=== PATIENT | female | born 1955 | race Caucasian/White ===

== ENCOUNTER 2020-06-25 11:58 | Outpatient (REF) | payer MEDICARE, MEDICAID, SELFPAY | END 2020-06-25 11:59 | disposition home or self-care (01) | LOC: HO.HMGCLDS 11:58 | PROVIDERS: PCP Family Medicine; Visit Provider Family Medicine | DX: Z20.828 Contact with and (suspected) exposure to other viral communicable diseases (principal) | CPT/HCPCS: C9803; U0003 ==

== ENCOUNTER 2020-10-12 11:32 | Outpatient (REF) | payer MEDICARE, MEDICAID, SELFPAY ==
[2020-10-12 12:49] LABS: Basophils Absolute Auto 0.1 X10*3/uL (0.0-0.2); Basophils Percent Auto 0.6 % (0-2); Eosinophils Absolute Auto 0.2 X10*3/uL (0.0-0.4); Eosinophils Percent Auto 1.2 % (0-4); Hematocrit 37.5 % (37-47); Imm Gran Abs Auto 0.05 X10*3/uL (0.00-0.03); Imm Gran Pct Auto 0.4 % (0.0-0.4); Lymphocytes Absolute Auto 2.7 X10*3/uL (1.2-4.9); Lymphocytes Percent Auto 21.7 % (20-40); MANUAL DIFF FLAG SCAN; Mean Corpuscular Hemoglobin 29.7 pg (27.0-33.0); Mean Corpuscular Volume 92.8 fL (80-98); Monocytes Absolute Auto 1.5 X10*3/uL (0.1-1.2); Monocytes Percent Auto 12.1 % (2-11); Neutrophils Absolute Auto 8.1 X10*3/uL (2.0-8.3); Platelet Count 241 X10*3/uL (160-400); Red Blood Count 4.04 X10*6/uL (4.20-5.50); Red Cell Distribution Width 12.2 % (11.0-16.0); SCAN SMEAR FLAG 1; White Blood Count 12.6 X10*3/uL (4.8-10.8)
[2020-10-12 13:24] LABS: Anion Gap 15 (12-20); Blood Urea Nitrogen 18 mg/dL (9-16); Carbon Dioxide 24 mmol/L (22-29); Chloride 100 mmol/L (96-108); Estimated Glomerular Filt Rate > 60; Potassium 4.1 mmol/L (3.3-5.1); Sodium 135 mmol/L (135-145)
[2020-10-12 13:37] LABS: Thyroid Stimulating Hormone 1.04 uIU/mL (0.32-4.0)
[2020-10-12 14:12] LABS: Free T4 (Free Thyroxine) 0.92 ng/dL (0.71-1.85)
[2020-10-12 14:56] LABS: SLIDE REVIEW VERIFIED
== END 2020-10-12 11:33 | disposition home or self-care (01) ==
LOC: HO.LAB 11:32
PROVIDERS: PCP Family Medicine; Visit Provider Family Medicine
DX: E03.9 Hypothyroidism, unspecified (principal); D50.9 Iron deficiency anemia, unspecified
CPT/HCPCS: 36415; 80051; 82565; 84439; 84443; 84520; 85025

== ENCOUNTER 2020-10-29 08:55 | Outpatient (REF) | payer MEDICARE, MEDICAID, SELFPAY ==
--- NOTE | ~2020-10-29 | MM_ITS ---
EXAMINATION: MM SCREENING DIGITAL BREAST TOMOSYNTHESIS, BILATERAL CLINICAL INFORMATION: Screening. Asymptomatic. The lifetime risk of breast cancer based on the Tyrer-Cuzick Model is 5%. COMPARISON: Mammography: 10/02/2019, 08/13/2018 TECHNIQUE: Digital breast tomosynthesis is performed in both the craniocaudal and mediolateral oblique views along with computer-aided detection (CAD). Synthesized 2D images are generated from the tomosynthesis. FINDINGS: The breasts are heterogeneously dense, which may obscure small masses (ACR BI-RADS breast composition Category c). There are no significant masses, abnormal calcifications, or other abnormalities. Breast tissue composition borders on extremely dense. There are scattered bilateral benign round and ductal secretory calcifications again noted. The axilla and skin contours are unremarkable. MM/MM tomosynthesis screening BI IMPRESSION: No mammographic evidence of malignancy. ASSESSMENT: BI-RADS 2: Benign RECOMMENDATION: Routine annual mammography screening. This patient's information was entered into a reminder system with a target due date for their next mammogram.
== END 2020-10-29 08:56 | disposition home or self-care (01) ==
LOC: HO.MAMMO 08:55
PROVIDERS: PCP Family Medicine; Visit Provider Family Medicine
DX: Z12.31 Encounter for screening mammogram for malignant neoplasm of breast (principal)
CPT/HCPCS: 77063; 77067

== ENCOUNTER 2021-03-31 11:54 | Outpatient (REF) | payer MEDICARE, MEDICAID, SELFPAY ==
[2021-03-31 12:29] LABS: MANUAL DIFF FLAG NO
[2021-03-31 12:31] LABS: Basophils Absolute Auto 0.1 X10*3/uL (0.0-0.2); Basophils Percent Auto 0.9 % (0-2); Eosinophils Absolute Auto 0.1 X10*3/uL (0.0-0.4); Eosinophils Percent Auto 1.4 % (0-4); Hemoglobin 11.8 g/dl (12.0-16.0); Imm Gran Abs Auto 0.05 X10*3/uL (0.00-0.03); Imm Gran Pct Auto 0.5 % (0.0-0.4); Lymphocytes Absolute Auto 2.7 X10*3/uL (1.2-4.9); Lymphocytes Percent Auto 28.6 % (20-40); Mean Corpuscular HGB Conc 32.8 g/dl (31.0-35.0); Mean Corpuscular Hemoglobin 29.8 pg (27.0-33.0); Mean Corpuscular Volume 90.9 fL (80-98); Monocytes Percent Auto 11.1 % (2-11); Neutrophils Absolute Auto 5.4 X10*3/uL (2.0-8.3); Neutrophils Percent Auto 57.5 % (45-73); Platelet Count 213 X10*3/uL (160-400); Red Blood Count 3.96 X10*6/uL (4.20-5.50); Red Cell Distribution Width 12.3 % (11.0-16.0); White Blood Count 9.4 X10*3/uL (4.8-10.8)
[2021-03-31 13:15] LABS: Anion Gap 15 (12-20); Blood Urea Nitrogen 14 mg/dL (9-16); Carbon Dioxide 23 mmol/L (22-29); Chloride 101 mmol/L (96-108); Estimated Glomerular Filt Rate 58; Potassium 4.5 mmol/L (3.3-5.1); Sodium 134 mmol/L (135-145)
[2021-03-31 13:38] LABS: Free T4 (Free Thyroxine) 1.02 ng/dL (0.71-1.85)
== END 2021-03-31 11:55 | disposition home or self-care (01) ==
LOC: HO.LAB 11:54
PROVIDERS: PCP Family Medicine; Visit Provider Family Medicine
DX: E03.9 Hypothyroidism, unspecified (principal); R00.0 Tachycardia, unspecified; D50.9 Iron deficiency anemia, unspecified
CPT/HCPCS: 36415; 80051; 82565; 84439; 84520; 85025

== ENCOUNTER 2021-10-21 15:03 | Outpatient (REF) | payer MEDICARE, MEDICAID, SELFPAY ==
[2021-10-21 15:53] LABS: Anion Gap 12 (12-20); Blood Urea Nitrogen 17 mg/dL (9-16); Carbon Dioxide 24 mmol/L (22-29); Chloride 100 mmol/L (96-108); Estimated Glomerular Filt Rate > 60; Iron 77 mcg/dL (30-160); Percent Iron Saturation 24 % (15-50); Potassium 3.9 mmol/L (3.3-5.1); Sodium 132 mmol/L (135-145); Total Iron Binding Capacity 326 mcg/dL (228-428); Unsaturated Iron Binding 249 ug/dL
[2021-10-21 16:13] LABS: Free T4 (Free Thyroxine) 1.11 ng/dL (0.71-1.85); TSH reflex Free T4 0.45 uIU/mL (0.32-4.0)
== END 2021-10-21 15:04 | disposition home or self-care (01) ==
LOC: HO.LAB 15:03
PROVIDERS: PCP Family Medicine; Visit Provider Family Medicine
DX: E03.9 Hypothyroidism, unspecified (principal); D50.9 Iron deficiency anemia, unspecified; E87.1 Hypo-osmolality and hyponatremia
CPT/HCPCS: 36415; 80051; 82565; 83540; 84439; 84443; 84520

== ENCOUNTER 2021-10-31 10:14 | Outpatient (REF) | payer MEDICARE, MEDICAID, SELFPAY ==
--- NOTE | ~2021-10-31 | MM_ITS ---
EXAMINATION: MM SCREENING DIGITAL BREAST TOMOSYNTHESIS, BILATERAL CLINICAL INFORMATION: Screening. Asymptomatic. The lifetime risk of breast cancer based on the Tyrer-Cuzick Model is 6%. COMPARISON: Mammography: 10/29/2020, 10/02/2019, 08/13/2018 TECHNIQUE: Digital breast tomosynthesis is performed in both the craniocaudal and mediolateral oblique views along with computer-aided detection (CAD). Synthesized 2D images are generated from the tomosynthesis. FINDINGS: The breasts are heterogeneously dense, which may obscure small masses (ACR BI-RADS breast composition Category c). There are no significant masses, abnormal calcifications, or other abnormalities. Breast tissue composition borders on extremely dense. Parenchymal pattern is similar to prior studies. There are scattered bilateral ductal secretory calcifications. The axilla are unremarkable. No significant changes. MM/MM tomosynthesis screening BI IMPRESSION: No mammographic evidence of malignancy. ASSESSMENT: BI-RADS 2: Benign RECOMMENDATION: Routine annual mammography screening. This patient's information was entered into a reminder system with a target due date for their next mammogram.
== END 2021-10-31 10:15 | disposition home or self-care (01) ==
LOC: HO.MAMMO 10:14
PROVIDERS: PCP Family Medicine; Visit Provider Family Medicine
DX: Z12.31 Encounter for screening mammogram for malignant neoplasm of breast (principal)
CPT/HCPCS: 77063; 77067

== ENCOUNTER 2022-06-13 11:10 | Outpatient (REF) | payer MEDICARE, MEDICAID, SELFPAY ==
[2022-06-13 11:21] LABS: MANUAL DIFF FLAG NO
[2022-06-13 12:08] LABS: Basophils Absolute Auto 0.1 X10*3/uL (0.0-0.2); Basophils Percent Auto 0.9 % (0-2); Eosinophils Absolute Auto 0.3 X10*3/uL (0.0-0.4); Eosinophils Percent Auto 2.1 % (0-4); Hematocrit 39.5 % (37.0-47.0); Hemoglobin 13.2 g/dl (12.0-16.0); Imm Gran Abs Auto 0.07 X10*3/uL (0.00-0.03); Imm Gran Pct Auto 0.6 % (0.0-0.4); Lymphocytes Absolute Auto 2.4 X10*3/uL (1.2-4.9); Lymphocytes Percent Auto 18.7 % (20-40); Mean Corpuscular HGB Conc 33.4 g/dl (31.0-35.0); Mean Corpuscular Hemoglobin 29.3 pg (27.0-33.0); Mean Corpuscular Volume 87.8 fL (80.0-98.0); Mean Platelet Volume 10.3 fL (9.4-12.3); Monocytes Percent Auto 7.5 % (2-11); Neutrophils Absolute Auto 8.9 x10*3/uL (2.0-8.3); Neutrophils Percent Auto 70.2 % (45-73); Platelet Count 232 X10*3/uL (160-400); Red Cell Distribution Width 12.3 % (11.0-16.0); White Blood Count 12.7 X10*3/uL (4.8-10.8)
[2022-06-13 13:31] LABS: Alanine Aminotransferase 20 U/L (0-31); Albumin Level 3.9 g/dL (3.5-5.0); Alkaline Phosphatase 97 U/L (39-117); Anion Gap 16 (12-20); Aspartate Amino Transferase 29 U/L (5-31); Bilirubin Total 0.4 mg/dL (0.0-1.0); Blood Urea Nitrogen 20 mg/dL (9-16); Calcium 9.2 mg/dL (8.4-10.2); Carbon Dioxide 26 mmol/L (22-29); Chloride 96 mmol/L (96-108); Estimated Glomerular Filt Rate > 60; Free T4 (Free Thyroxine) 1.12 ng/dL (0.71-1.85); Glucose Random 91 mg/dL (60-115); Potassium 4.5 mmol/L (3.3-5.1); Sodium 133 mmol/L (135-145); Total Protein 6.4 g/dL (6.5-8.0)
== END 2022-06-13 11:11 | disposition home or self-care (01) ==
LOC: HO.LAB 11:10
PROVIDERS: PCP Family Medicine; Visit Provider Family Medicine
DX: E03.9 Hypothyroidism, unspecified (principal); D50.9 Iron deficiency anemia, unspecified; R53.83 Other fatigue
CPT/HCPCS: 36415; 80053; 84439; 85025

== ENCOUNTER 2022-11-02 09:45 | Outpatient (REF) | payer MEDICARE, MEDICAID, SELFPAY ==
--- NOTE | ~2022-11-02 | MM_ITS ---
EXAMINATION: MM SCREENING DIGITAL BREAST TOMOSYNTHESIS, BILATERAL CLINICAL INFORMATION: Screening. Asymptomatic. Family history breast cancer, sister. The lifetime risk of breast cancer based on the Tyrer-Cuzick Model is 7%. COMPARISON: Mammography: 10/31/2021, 10/29/2020, 10/02/2019, 08/13/2018 TECHNIQUE: Digital breast tomosynthesis is performed in both the craniocaudal and mediolateral oblique views along with computer-aided detection (CAD). Synthesized 2D images are generated from the tomosynthesis. FINDINGS: The breasts are heterogeneously dense, which may obscure small masses (ACR BI-RADS breast composition Category c). Parenchymal pattern is similar to prior exams and there is no developing density or architectural abnormality. There are no significant masses, abnormal calcifications, or other abnormalities. Again, there are scattered bilateral ductal secretory calcifications. The axilla and skin contours are unremarkable. No significant changes. MM/MM tomosynthesis screening BI IMPRESSION: No mammographic evidence of malignancy. ASSESSMENT: BI-RADS 1: Negative RECOMMENDATION: Routine annual mammography screening. This patient's information was entered into a reminder system with a target due date for their next mammogram.
== END 2022-11-02 09:46 | disposition home or self-care (01) ==
LOC: HO.MAMMO 09:45
PROVIDERS: PCP Family Medicine; Visit Provider Family Medicine
DX: Z12.31 Encounter for screening mammogram for malignant neoplasm of breast (principal)
CPT/HCPCS: 77063; 77067

== ENCOUNTER 2022-11-08 10:03 | Outpatient (REF) | payer MEDICARE, MEDICAID, SELFPAY ==
[2022-11-08 10:17] LABS: MANUAL DIFF FLAG NO
[2022-11-08 10:31] LABS: Basophils Absolute Auto 0.1 X10*3/uL (0.0-0.2); Basophils Percent Auto 0.9 % (0-2); Eosinophils Absolute Auto 0.2 X10*3/uL (0.0-0.4); Eosinophils Percent Auto 2.1 % (0-4); Hematocrit 40.7 % (37.0-47.0); Hemoglobin 13.1 g/dl (12.0-16.0); Imm Gran Abs Auto 0.04 X10*3/uL (0.00-0.03); Imm Gran Pct Auto 0.4 % (0.0-0.4); Lymphocytes Absolute Auto 2.2 X10*3/uL (1.2-4.9); Lymphocytes Percent Auto 20.2 % (20-40); Mean Corpuscular HGB Conc 32.2 g/dl (31.0-35.0); Mean Corpuscular Hemoglobin 29.2 pg (27.0-33.0); Mean Corpuscular Volume 90.6 fL (80.0-98.0); Monocytes Absolute Auto 0.8 X10*3/uL (0.1-1.2); Neutrophils Absolute Auto 7.4 x10*3/uL (2.0-8.3); Neutrophils Percent Auto 69.4 % (45-73); Platelet Count 221 X10*3/uL (160-400); Red Blood Count 4.49 X10*6/uL (4.20-5.50); Red Cell Distribution Width 12.3 % (11.0-16.0); White Blood Count 10.7 X10*3/uL (4.8-10.8)
[2022-11-08 11:13] LABS: Alanine Aminotransferase 22 U/L (0-31); Albumin Level 3.8 g/dL (3.5-5.0); Alkaline Phosphatase 101 U/L (39-117); Anion Gap 11 (12-20); Aspartate Amino Transferase 23 U/L (5-31); Bilirubin Total 0.4 mg/dL (0.0-1.0); Blood Urea Nitrogen 25 mg/dL (9-16); Calcium 8.8 mg/dL (8.4-10.2); Carbon Dioxide 27 mmol/L (22-29); Chloride 101 mmol/L (96-108); Estimated Glomerular Filt Rate 48; Glucose Random 112 mg/dL (60-115); Potassium 4.6 mmol/L (3.3-5.1); Sodium 134 mmol/L (135-145)
[2022-11-08 11:34] LABS: Free T4 (Free Thyroxine) 1.09 ng/dL (0.71-1.85)
== END 2022-11-08 10:04 | disposition home or self-care (01) ==
LOC: HO.LAB 10:03
PROVIDERS: PCP Family Medicine; Visit Provider Family Medicine
DX: E03.9 Hypothyroidism, unspecified (principal); R53.1 Weakness; R27.0 Ataxia, unspecified
CPT/HCPCS: 36415; 80053; 84439; 85025

== ENCOUNTER 2023-05-22 12:06 | Outpatient (REF) | payer MEDICARE, MEDICAID, SELFPAY ==
[2023-05-22 14:03] LABS: MANUAL DIFF FLAG NO
[2023-05-22 14:10] LABS: Basophils Absolute Auto 0.1 X10*3/uL (0.0-0.2); Basophils Percent Auto 0.9 % (0-2); Eosinophils Absolute Auto 0.3 X10*3/uL (0.0-0.4); Eosinophils Percent Auto 2.5 % (0-4); Hematocrit 37.4 % (37.0-47.0); Hemoglobin 12.1 g/dl (12.0-16.0); Imm Gran Abs Auto 0.04 X10*3/uL (0.00-0.03); Imm Gran Pct Auto 0.4 % (0.0-0.4); Lymphocytes Absolute Auto 2.3 X10*3/uL (1.2-4.9); Lymphocytes Percent Auto 22.8 % (20-40); Mean Corpuscular HGB Conc 32.4 g/dl (31.0-35.0); Mean Corpuscular Hemoglobin 29.1 pg (27.0-33.0); Mean Corpuscular Volume 89.9 fL (80.0-98.0); Mean Platelet Volume 10.5 fL (9.4-12.3); Monocytes Absolute Auto 1.1 X10*3/uL (0.1-1.2); Monocytes Percent Auto 10.4 % (2-11); Neutrophils Absolute Auto 6.4 x10*3/uL (2.0-8.3); Platelet Count 239 X10*3/uL (160-400); Red Blood Count 4.16 X10*6/uL (4.20-5.50); Red Cell Distribution Width 12.5 % (11.0-16.0); White Blood Count 10.1 X10*3/uL (4.8-10.8)
[2023-05-22 14:25] LABS: Alanine Aminotransferase 20 U/L (0-31); Albumin Level 3.7 g/dL (3.5-5.0); Alkaline Phosphatase 93 U/L (39-117); Anion Gap 12 (12-20); Aspartate Amino Transferase 21 U/L (5-31); Bilirubin Total 0.3 mg/dL (0.0-1.0); Blood Urea Nitrogen 14 mg/dL (9-16); Calcium 9.3 mg/dL (8.4-10.2); Carbon Dioxide 26 mmol/L (22-29); Chloride 102 mmol/L (96-108); Estimated Glomerular Filt Rate > 60; Glucose Random 71 mg/dL (60-115); Iron 84 mcg/dL (30-160); Percent Iron Saturation 29 % (15-50); Potassium 4.4 mmol/L (3.3-5.1); Sodium 136 mmol/L (135-145); Total Iron Binding Capacity 285 mcg/dL (228-428); Total Protein 6.3 g/dL (6.5-8.0); Unsaturated Iron Binding 201 ug/dL
== END 2023-05-22 12:07 | disposition home or self-care (01) ==
LOC: HO.10HDL 12:06
PROVIDERS: Visit Provider Family Medicine
DX: D64.9 Anemia, unspecified (principal); E03.9 Hypothyroidism, unspecified; R27.0 Ataxia, unspecified
CPT/HCPCS: 36415; 80053; 83540; 84439; 85025

== ENCOUNTER 2023-09-05 10:32 | Outpatient (REF) | payer MEDICARE, MEDICAID, SELFPAY ==
[2023-09-06 08:38] LABS: Appearance Urine Cloudy; Color Urine Yellow; Glucose Urine UA Negative (Negative); Leukocyte Esterase Urine Moderate (2+) (Negative); Nitrite Urine Negative (Negative); PH 6.5 (5.0-9.0); Specific Gravity - Urine <= 1.005 (1.005-1.025); UMIC TRIGGER UA YES; Urine Blood Negative (Negative); Urine Ketones Negative (Negative); Urine Protein Negative (Neg-Trace)
[2023-09-06 09:00] LABS: Bacteria Urine 4+ (None Seen); Hyaline Casts Urine 0-2 /LPF (0-2); Squamous Epithelial Cell Urine 0-2 /HPF (0-2); WBC Urine 21-50 /HPF (0-5)
[2023-09-06 09:01] LABS: RBC Urine 0-2 /HPF (0-2)
== END 2023-09-05 10:33 | disposition home or self-care (01) ==
LOC: HO.LAB 10:32
PROVIDERS: PCP Family Medicine; Visit Provider Family Medicine
DX: R41.0 Disorientation, unspecified (principal); N39.0 Urinary tract infection, site not specified
CPT/HCPCS: 81001; 87086; 87088; 87186

== ENCOUNTER 2023-09-12 14:43 | Outpatient (REF) | payer MEDICARE, MEDICAID, SELFPAY ==
[2023-09-12 16:56] LABS: Appearance Urine Cloudy; Color Urine Yellow; Glucose Urine UA Negative (Negative); Leukocyte Esterase Urine Moderate (2+) (Negative); Nitrite Urine Positive (Negative); Specific Gravity - Urine 1.015 (1.005-1.025); UMIC TRIGGER UACC YES; Urine Blood Negative (Negative); Urine Ketones Trace mg/dL (Negative); Urine Protein Negative (Neg-Trace)
[2023-09-12 18:00] LABS: Bacteria Urine 4+ (None Seen); Calcium Oxalate Crystals Urine Present; Hyaline Casts Urine 0-2 /LPF (0-2); RBC Urine 0-2 /HPF (0-2); UACC Culture Trigger YES; WBC Urine 21-50 /HPF (0-5)
== END 2023-09-12 14:44 | disposition home or self-care (01) ==
LOC: HO.LAB 14:43
PROVIDERS: PCP Family Medicine; Visit Provider Family Medicine
DX: N39.0 Urinary tract infection, site not specified (principal)
CPT/HCPCS: 81001; 87086; 87088; 87186

== ENCOUNTER 2023-09-19 09:52 | Outpatient (REF) | payer MEDICARE, MEDICAID, SELFPAY ==
[2023-09-19 10:53] LABS: MANUAL DIFF FLAG NO
[2023-09-19 11:01] LABS: Basophils Absolute Auto 0.1 X10*3/uL (0.0-0.2); Basophils Percent Auto 0.8 % (0-2); Eosinophils Absolute Auto 0.4 X10*3/uL (0.0-0.4); Eosinophils Percent Auto 3.9 % (0-4); Hematocrit 37.9 % (37.0-47.0); Hemoglobin 12.6 g/dl (12.0-16.0); Imm Gran Abs Auto 0.04 X10*3/uL (0.00-0.03); Imm Gran Pct Auto 0.4 % (0.0-0.4); Lymphocytes Absolute Auto 1.8 X10*3/uL (1.2-4.9); Lymphocytes Percent Auto 18.1 % (20-40); Mean Corpuscular HGB Conc 33.2 g/dl (31.0-35.0); Mean Corpuscular Hemoglobin 28.6 pg (27.0-33.0); Mean Corpuscular Volume 85.9 fL (80.0-98.0); Mean Platelet Volume 9.6 fL (9.4-12.3); Monocytes Absolute Auto 0.8 X10*3/uL (0.1-1.2); Monocytes Percent Auto 8.4 % (2-11); Neutrophils Absolute Auto 6.8 x10*3/uL (2.0-8.3); Neutrophils Percent Auto 68.4 % (45-73); Platelet Count 279 X10*3/uL (160-400); Red Blood Count 4.41 X10*6/uL (4.20-5.50); Red Cell Distribution Width 12.7 % (11.0-16.0)
[2023-09-19 11:30] LABS: Alanine Aminotransferase 16 U/L (0-31); Alkaline Phosphatase 97 U/L (39-117); Anion Gap 11 (12-20); Aspartate Amino Transferase 18 U/L (5-31); Bilirubin Direct 0.1 mg/dL (0.0-0.5); Bilirubin Total 0.4 mg/dL (0.0-1.0); Carbon Dioxide 26 mmol/L (22-29); Chloride 101 mmol/L (96-108); Iron 95 mcg/dL (30-160); Percent Iron Saturation 36 % (15-50); Potassium 4.4 mmol/L (3.3-5.1); Sodium 134 mmol/L (135-145); Total Iron Binding Capacity 267 mcg/dL (228-428); Total Protein 6.6 g/dL (6.5-8.0); Unsaturated Iron Binding 172 ug/dL
[2023-09-19 11:39] LABS: Erythrocyte Sedimentation Rate 12 MM/HR (0-20); Ferritin 186 ng/mL (10-250); Free T4 (Free Thyroxine) 1.19 ng/dL (0.71-1.85); Thyroid Stimulating Hormone 1.06 uIU/mL (0.32-4.0)
[2023-09-19 15:11] LABS: Folate 18.3 ng/mL (> or = 4.0); Vitamin B12 299 pg/mL (200-900)
== END 2023-09-19 09:53 | disposition home or self-care (01) ==
LOC: HO.10HDL 09:52
PROVIDERS: Visit Provider Family Medicine
DX: D64.9 Anemia, unspecified (principal); R53.1 Weakness; R27.0 Ataxia, unspecified
CPT/HCPCS: 36415; 80051; 80076; 82607; 82728; 82746; 83540; 84439; 84443; 85025; 85652

== ENCOUNTER 2023-10-15 13:51 | Outpatient (REF) | payer MEDICARE, MEDICAID, SELFPAY ==
[2023-10-15 14:40] LABS: Appearance Urine Clear; Color Urine Yellow; Glucose Urine UA Negative (Negative); Leukocyte Esterase Urine Negative (Negative); Nitrite Urine Negative (Negative); Specific Gravity - Urine <= 1.005 (1.005-1.025); Urine Blood Negative (Negative); Urine Ketones Negative (Negative); Urine Protein Negative (Neg-Trace)
== END 2023-10-15 13:52 | disposition home or self-care (01) ==
LOC: HO.LAB 13:51
PROVIDERS: PCP Family Medicine; Visit Provider Family Medicine
DX: N39.0 Urinary tract infection, site not specified (principal)
CPT/HCPCS: 81003; 87086; 87088; 87186

== ENCOUNTER 2023-11-08 09:25 | Outpatient (REF) | payer MEDICARE, MEDICAID, SELFPAY ==
--- NOTE | ~2023-11-08 | MM_ITS ---
EXAMINATION: MM SCREENING DIGITAL BREAST TOMOSYNTHESIS, BILATERAL CLINICAL INFORMATION: Screening. Asymptomatic. COMPARISON: Mammography: This study is compared with prior exams dating back to 2019. TECHNIQUE: Digital breast tomosynthesis is performed in both the craniocaudal and mediolateral oblique views along with computer-aided detection (CAD). Synthesized 2D images are generated from the tomosynthesis. FINDINGS: There are scattered areas of fibroglandular density (ACR BI-RADS breast composition Category b). There are no significant masses, abnormal calcifications, or other abnormalities. Few, bilateral benign calcifications are present. MM/MM tomosynthesis screening BI IMPRESSION: No mammographic evidence of malignancy. ASSESSMENT: BI-RADS BI-RADS 2 - Benign Findings RECOMMENDATION: Routine annual mammography screening. 1 year F/U This examination should not preclude the clinical evaluation of a suspicious palpable abnormality. This patient's information was entered into a reminder system with a target due date for their next mammogram.
== END 2023-11-08 09:26 | disposition home or self-care (01) ==
LOC: HO.MAMMO 09:25
PROVIDERS: PCP Family Medicine; Visit Provider Family Medicine
DX: Z12.31 Encounter for screening mammogram for malignant neoplasm of breast (principal)
CPT/HCPCS: 77063; 77067

== ENCOUNTER → 2023-11-08 09:30 | Outpatient (BNV) | payer MEDICARE, MEDICAID, SELFPAY | PROVIDERS: PCP Family Medicine; Visit Provider Radiology Diagnostic Radiology | DX: Z12.31 Encounter for screening mammogram for malignant neoplasm of breast (principal) | CPT/HCPCS: 77063; 77067 ==

== ENCOUNTER 2024-03-19 10:37 | Outpatient (REF) | payer MEDICARE, MEDICAID, SELFPAY ==
[2024-03-19 11:01] LABS: MANUAL DIFF FLAG NO
[2024-03-19 11:46] LABS: Basophils Absolute Auto 0.1 X10*3/uL (0.0-0.2); Basophils Percent Auto 0.7 % (0-2); Eosinophils Absolute Auto 0.2 X10*3/uL (0.0-0.4); Eosinophils Percent Auto 1.7 % (0-4); Hematocrit 40.3 % (37.0-47.0); Hemoglobin 13.4 g/dl (12.0-16.0); Imm Gran Abs Auto 0.05 X10*3/uL (0.00-0.03); Imm Gran Pct Auto 0.5 % (0.0-0.4); Lymphocytes Percent Auto 18.3 % (20-40); Mean Corpuscular HGB Conc 33.3 g/dl (31.0-35.0); Mean Corpuscular Hemoglobin 29.1 pg (27.0-33.0); Mean Corpuscular Volume 87.4 fL (80.0-98.0); Mean Platelet Volume 10.2 fL (9.4-12.3); Monocytes Absolute Auto 0.8 X10*3/uL (0.1-1.2); Monocytes Percent Auto 7.5 % (2-11); Neutrophils Absolute Auto 7.7 x10*3/uL (2.0-8.3); Neutrophils Percent Auto 71.3 % (45-73); Platelet Count 238 X10*3/uL (160-400); Red Blood Count 4.61 X10*6/uL (4.20-5.50); Red Cell Distribution Width 12.4 % (11.0-16.0); White Blood Count 10.8 X10*3/uL (4.8-10.8)
[2024-03-19 12:31] LABS: Anion Gap 14 (12-20); Blood Urea Nitrogen 14 mg/dL (9-16); Carbon Dioxide 27 mmol/L (22-29); Chloride 99 mmol/L (96-108); Estimated Glomerular Filt Rate 56; Iron 71 mcg/dL (30-160); Percent Iron Saturation 24 % (15-50); Potassium 4.5 mmol/L (3.3-5.1); Sodium 135 mmol/L (135-145); Total Iron Binding Capacity 296 mcg/dL (228-428); Unsaturated Iron Binding 225 ug/dL
[2024-03-19 12:52] LABS: Free T4 (Free Thyroxine) 0.94 ng/dL (0.71-1.85); Thyroid Stimulating Hormone 1.29 uIU/mL (0.32-4.0)
== END 2024-03-19 10:38 | disposition home or self-care (01) ==
LOC: HO.LAB 10:37
PROVIDERS: PCP Family Medicine; Visit Provider Family Medicine
DX: E87.1 Hypo-osmolality and hyponatremia (principal); D50.9 Iron deficiency anemia, unspecified; E03.9 Hypothyroidism, unspecified
CPT/HCPCS: 36415; 80051; 82565; 83540; 84439; 84443; 84520; 85025

== ENCOUNTER 2024-08-07 10:35 | Emergency (ER) | payer MEDICARE, MEDICAID, SELFPAY ==
[2024-08-07 10:37] VITALS: BP 132/63; PULSE 55; RESP 16; TEMP 36.6; O2SAT 98; BMI 24.0
--- NOTE | 2024-08-07 10:43 | ECG_ITS ---
Test Reason : syncope Blood Pressure : */* mmHG Vent. Rate : 53 BPM Atrial Rate : 53 BPM P-R Int : 166 ms QRS Dur : 76 ms QT Int : 462 ms P-R-T Axes : 19 1 41 degrees QTcB Int : 433 ms Sinus bradycardia Minimal voltage criteria for LVH, may be normal variant ( R in aVL ) Cannot rule out Anterior infarct , age undetermined Abnormal ECG When compared with ECG of 26-Jun-2019 09:29, No significant change was found Referred By: Generic ED Physician Electronically Signed By: Kenyon Nieto
[2024-08-07 11:04] LABS: MANUAL DIFF FLAG NO
[2024-08-07 11:06] LABS: Basophils Absolute Auto 0.1 X10*3/uL (0.0-0.2); Basophils Percent Auto 0.7 % (0-2); Eosinophils Absolute Auto 0.1 X10*3/uL (0.0-0.4); Eosinophils Percent Auto 1.1 % (0-4); Hematocrit 38.7 % (37.0-47.0); Hemoglobin 12.9 g/dl (12.0-16.0); Imm Gran Abs Auto 0.04 X10*3/uL (0.00-0.03); Imm Gran Pct Auto 0.4 % (0.0-0.4); Lymphocytes Absolute Auto 1.3 X10*3/uL (1.2-4.9); Lymphocytes Percent Auto 14.3 % (20-40); Mean Corpuscular HGB Conc 33.3 g/dl (31.0-35.0); Mean Corpuscular Hemoglobin 29.3 pg (27.0-33.0); Mean Corpuscular Volume 87.8 fL (80.0-98.0); Mean Platelet Volume 9.9 fL (9.4-12.3); Monocytes Absolute Auto 0.6 X10*3/uL (0.1-1.2); Monocytes Percent Auto 6.7 % (2-11); Neutrophils Absolute Auto 7.1 x10*3/uL (2.0-8.3); Neutrophils Percent Auto 76.8 % (45-73); Platelet Count 213 X10*3/uL (160-400); Red Blood Count 4.41 X10*6/uL (4.20-5.50); Red Cell Distribution Width 12.6 % (11.0-16.0); White Blood Count 9.2 X10*3/uL (4.8-10.8)
[2024-08-07 11:21] LABS: Anion Gap 12 (12-20); Blood Urea Nitrogen 16 mg/dL (9-16); Calcium 9.2 mg/dL (8.4-10.2); Carbon Dioxide 24 mmol/L (22-29); Chloride 103 mmol/L (96-108); Creatinine Clr Calc Pharmacy 36.7; Estimated Glomerular Filt Rate 54; Glucose Random 120 mg/dL (60-115); Magnesium 2.1 mg/dL (1.6-2.6); Potassium 4.8 mmol/L (3.3-5.1); Sodium 134 mmol/L (135-145)
[2024-08-07 11:48] LABS: Influenza A PCR NEGATIVE (Negative); Influenza B PCR NEGATIVE (Negative); Resp Syncy Virus RNA Qual PCR NEGATIVE (Negative); SARS COV2 PCR INHOUSE NEGATIVE (Negative)
[2024-08-07 15:00] VITALS: BP 156/75; PULSE 56; RESP 16; TEMP 36.4; O2SAT 95
[2024-08-07 15:05] LABS: Appearance Urine Clear; Color Urine Yellow; Glucose Urine UA Negative (Negative); Leukocyte Esterase Urine Moderate (2+) (Negative); Nitrite Urine Positive (Negative); Specific Gravity - Urine 1.025 (1.005-1.025); UMIC TRIGGER UACC YES; Urine Blood Negative (Negative); Urine Ketones Trace mg/dL (Negative); Urine Protein Negative (Neg-Trace)
--- NOTE | 2024-08-07 15:06 | PC.NURSE ---
Pt comes to ED today by way of [facility]ANC[facility]. [facility] reports she was called by [facility] Day [facility] staff stating she had syncopal event with a noted low BP. [facility] reports Pt has been known to act out by means of feeling ill when she does not want to be at her day program so she states she proceeded to ED for evaluation to be on the safe side. [facility] states day program staff reports there was no fall and no head strike. Pt is alert and interactive and oriented to person and situation. Pt denies pain and reports feeling hungry. VSS, afebrile Awaiting u/a.
[2024-08-07 15:24] LABS: Bacteria Urine 4+ (None Seen); Calcium Oxalate Crystals Urine Present; Hyaline Casts Urine >20 /LPF (0-2); UACC Culture Trigger YES; WBC Urine >50 /HPF (0-5)
[2024-08-07 16:16] VITALS: BP 170/77; PULSE 64
[2024-08-07 16:17] VITALS: BP 171/90; BP 178/81; PULSE 65; PULSE 85
--- NOTE | 2024-08-07 16:26 | ED.GENADULT ---
HPI - General Adult General Chief complaint: Syncope Stated complaint: low BP, fainted, weak Time Seen by Provider: 08/07/24 15:19 Related Data Previous Rx's ?Medication ?Instructions ?Recorded nitrofurantoin 100 mg PO Q12H 5 days #10 caps 08/07/24 monohydrate/macrocrystals 100 mg capsule (Macrobid) Allergies Allergy/AdvReac Type Severity Reaction Status Date / Time ibuprofen [From MOTRIN] Allergy Severe GI BLEED Verified 08/07/24 10:42 aspirin [ASA] Allergy Intermediate GI BLEED Verified 08/07/24 10:42 lactose [LACTOSE] Allergy Intermediate DIARRHEA Verified 08/07/24 10:42 PMF Social History Social History Smoked in Last 30 Days: No Use of substances other than those prescribed or required for medical reasons: No Advance Directives: Yes Advance Directives Information Provided: Yes Advance Directives on File: No Do you have a plan to hurt others: No Plan Physical Exam ED Vital Signs: Vital Signs - 24 hr 08/07/24 15:00 08/07/24 15:00 08/07/24 16:16 Temperature 97.5 F Pulse Rate 56 64 Respiratory Rate 16 Blood Pressure 156/75 H 170/77 H Pulse Oximetry 95 95 Oxygen Delivery Method Room Air Room Air 08/07/24 16:17 08/07/24 16:17 08/07/24 17:01 Temperature Pulse Rate 65 85 62 Respiratory Rate 16 Blood Pressure 171/90 H 178/81 H 155/67 H Pulse Oximetry 100 Oxygen Delivery Method Room Air 08/07/24 17:38 Temperature 98.4 F Pulse Rate 62 Respiratory Rate 16 Blood Pressure 155/67 H Pulse Oximetry 100 Oxygen Delivery Method Room Air BMI result Body Mass Index 24.0 Medical Decision Making Lab Data 08/07/24 10:58 08/07/24 10:58 Labs: Lab Results 08/07/24 08/07/24 Range/Units 10:58 14:56 WBC 9.2 (4.8-10.8) X10*3/uL RBC 4.41 (4.20-5.50) X10*6/uL Hgb 12.9 (12.0-16.0) g/dl Hct 38.7 (37.0-47.0) % MCV 87.8 (80.0-98.0) fL MCH 29.3 (27.0-33.0) pg MCHC 33.3 (31.0-35.0) g/dl RDW 12.6 (11.0-16.0) % Plt Count 213 (160-400) X10*3/uL MPV 9.9 (9.4-12.3) fL Immature Gran % (Auto) 0.4 (0.0-0.4) % Neut % (Auto) 76.8 H (45-73) % Lymph % (Auto) 14.3 L (20-40) % [place] % (Auto) 6.7 (2-11) % Eos % (Auto) 1.1 (0-4) % Baso % (Auto) 0.7 (0-2) % Lymph # (Auto) 1.3 (1.2-4.9) X10*3/uL [place] # (Auto) 0.6 (0.1-1.2) X10*3/uL Eos # (Auto) 0.1 (0.0-0.4) X10*3/uL Baso # (Auto) 0.1 (0.0-0.2) X10*3/uL Abs Immat Gran (auto) 0.04 H (0.00-0.03) X10*3/uL Absolute Neuts (auto) 7.1 (2.0-8.3) x10*3/uL Absolute Nucleated RBC 0.000 (0.0-0.012) X10*3/uL Nucleated RBC % (auto) 0.0 (0.0-0.2) /100WBC Sodium 134 L (135-145) mmol/L Potassium 4.8 (3.3-5.1) mmol/L Chloride 103 (96-108) mmol/L Carbon Dioxide 24 (22-29) mmol/L Anion Gap 12 (12-20) BUN 16 (9-16) mg/dL Creatinine 1.02 (0.5-1.4) mg/dL Estim Creat Clear Calc 36.7 Estimated GFR 54 Random Glucose 120 H (60-115) mg/dL Calcium 9.2 (8.4-10.2) mg/dL Magnesium 2.1 (1.6-2.6) mg/dL Urine Color Yellow Urine Appearance Clear Urine pH 6.0 (5.0-9.0) Ur Specific [place] 1.025 (1.005-1.025) Urine Protein Negative (Neg-Trace) mg/dL Urine Glucose (UA) Negative (Negative) mg/dL Urine Ketones Trace (Negative) mg/dL Urine Blood Negative (Negative) Urine Nitrite Positive H (Negative) Ur Leukocyte Esterase Moderate (2+) H (Negative) Urine RBC 3-5 H (0-2) /HPF Urine WBC >50 H (0-5) /HPF Ur Squamous Epith Cells 11-20 (0-2) /HPF Calcium Oxalate Crystal Present Urine Bacteria 4+ (None Seen) Hyaline Casts >20 (0-2) /LPF Influenza Type A (PCR) NEGATIVE (Negative) Influenza Type B (PCR) NEGATIVE (Negative) RSV RNA Qual (PCR) NEGATIVE (Negative) SARS-CoV-2 RNA (RT-PCR) NEGATIVE (Negative) Attestation Attending Attestation: I was personally present and available for consultation in the ED. I have reviewed everything on the chart that is available and agree with the documentation provided by the RAE including discussion about the assessment, treatment plan and discussion. Based on medical record the care appears appropriate. Christopher Randall MD [facility] Emergency Medicine Discharge Plan Discharge Clinical Impression: Syncope, Urinary tract infection Patient Disposition: Home, Self-Care Instructions: Urinary Tract Infection in Women (ED), Syncope (ED) Additional Instructions: Your workup today was reassuring. You do have a urinary tract infection. Take the antibiotic twice daily for 5 days Follow-up with your primary doctor, return for new or worsening symptoms Prescriptions: New nitrofurantoin monohyd/m-cryst [Macrobid] 100 mg capsule 100 mg PO Q12H 5 Days Qty: 10 0RF Rx Instructions: must administer with a meal/food Interventions: ED Discharge Assessment Last Done: 08/07/24 17:38 Discharge Date/Time: 08/07/24 17:40 Print Language: Syriac
[2024-08-07 17:01] VITALS: BP 155/67; PULSE 62; RESP 16; O2SAT 100
[2024-08-07 17:38] VITALS: BP 155/67; PULSE 62; RESP 16; TEMP 36.9; O2SAT 100
== END 2024-08-07 17:40 | disposition home or self-care (01) ==
PROVIDERS: Emergency Provider Emergency Medicine; PCP Family Medicine
DX: R55 Syncope and collapse (principal); N39.0 Urinary tract infection, site not specified; R03.1 Nonspecific low blood-pressure reading; R00.1 Bradycardia, unspecified; Z03.818 Encounter for observation for suspected exposure to other biological agents ruled out; Z79.899 Other long term (current) drug therapy
CPT/HCPCS: 0241U; 51701; 80048; 81001; 83735; 85025; 87086; 93005; 99283; 99285

== ENCOUNTER → 2024-08-07 10:43 | Outpatient (BNV) | payer MEDICARE, MEDICAID, SELFPAY | PROVIDERS: Emergency Provider Emergency Medicine; PCP Family Medicine; Visit Provider Internal Medicine Cardiovascular Disease | DX: R94.31 Abnormal electrocardiogram [ECG] [EKG] (principal) | CPT/HCPCS: 93010 ==

== ENCOUNTER 2024-09-26 13:52 | Outpatient (REF) | payer MEDICARE, MEDICAID, SELFPAY ==
[2024-09-26 14:05] LABS: MANUAL DIFF FLAG NO
[2024-09-26 14:56] LABS: Basophils Absolute Auto 0.1 X10*3/uL (0.0-0.2); Eosinophils Absolute Auto 0.3 X10*3/uL (0.0-0.4); Eosinophils Percent Auto 3.2 % (0-4); Hematocrit 38.9 % (37.0-47.0); Hemoglobin 13.2 g/dl (12.0-16.0); Imm Gran Abs Auto 0.04 X10*3/uL (0.00-0.03); Imm Gran Pct Auto 0.4 % (0.0-0.4); Lymphocytes Absolute Auto 2.3 X10*3/uL (1.2-4.9); Lymphocytes Percent Auto 21.4 % (20-40); Mean Corpuscular HGB Conc 33.9 g/dl (31.0-35.0); Mean Corpuscular Hemoglobin 29.8 pg (27.0-33.0); Mean Corpuscular Volume 87.8 fL (80.0-98.0); Mean Platelet Volume 10.5 fL (9.4-12.3); Monocytes Absolute Auto 1.1 X10*3/uL (0.1-1.2); Monocytes Percent Auto 10.4 % (2-11); Neutrophils Absolute Auto 6.8 x10*3/uL (2.0-8.3); Neutrophils Percent Auto 63.6 % (45-73); Platelet Count 240 X10*3/uL (160-400); Red Blood Count 4.43 X10*6/uL (4.20-5.50); Red Cell Distribution Width 12.5 % (11.0-16.0); White Blood Count 10.7 X10*3/uL (4.8-10.8)
[2024-09-26 15:35] LABS: Anion Gap 13 (12-20); Blood Urea Nitrogen 17 mg/dL (9-16); Carbon Dioxide 25 mmol/L (22-29); Chloride 102 mmol/L (96-108); Estimated Glomerular Filt Rate 53; Iron 72 mcg/dL (30-160); Percent Iron Saturation 24 % (15-50); Potassium 4.4 mmol/L (3.3-5.1); Sodium 136 mmol/L (135-145); Total Iron Binding Capacity 295 mcg/dL (228-428); Unsaturated Iron Binding 223 ug/dL
[2024-09-26 15:49] LABS: Free T4 (Free Thyroxine) 1.14 ng/dL (0.71-1.85); Thyroid Stimulating Hormone 1.09 uIU/mL (0.32-4.0)
== END 2024-09-26 13:53 | disposition home or self-care (01) ==
LOC: HO.LAB 13:52
PROVIDERS: PCP Family Medicine; Visit Provider Family Medicine
DX: D50.9 Iron deficiency anemia, unspecified (principal); R19.7 Diarrhea, unspecified; E03.9 Hypothyroidism, unspecified
CPT/HCPCS: 36415; 80051; 82565; 83540; 84439; 84443; 84520; 85025

== ENCOUNTER → 2024-11-26 08:45 | Outpatient (BNV) | payer MEDICARE, MEDICAID, SELFPAY | PROVIDERS: PCP Family Medicine; Visit Provider Internal Medicine | DX: Z12.31 Encounter for screening mammogram for malignant neoplasm of breast (principal) | CPT/HCPCS: 77063; 77067 ==

== ENCOUNTER 2024-11-26 08:46 | Outpatient (REF) | payer MEDICARE, MEDICAID, SELFPAY | END 2024-11-26 08:47 | disposition home or self-care (01) | LOC: HO.MAMMO 08:46 | PROVIDERS: PCP Family Medicine; Visit Provider Family Medicine | DX: Z12.31 Encounter for screening mammogram for malignant neoplasm of breast (principal) | CPT/HCPCS: 77063; 77067 ==

== ENCOUNTER 2025-03-19 08:10 | Outpatient (AMB) | payer MEDICARE, MEDICAID, SELFPAY ==
--- OUTSIDE RECORDS SUMMARY | 2025-03-16 14:00 | XMS_ITS | Continuity of Care Document ---
Author Organization [facility] ter Address [address] [place] [id number]- Care Team Providers Care Quality Control Systems Manager Name Role Phone Donal CORRAL, Froy Willams Primary Care Physician Unavai lable [facility] [phone] Date(s): 03/15/25 - 03/16/[address] [id number]- Encounter Diagnosis Stroke-like symptoms(Final) - 03/13/25 Right arm weakness(Final) - 03/13/25 Discharge Disposition: A-D/C Home Attending Physician: Bill Oliva MD Admitting Physician: Cuca Mendez MD Referring Physician: Not on Staff, Referring MD Encounter Type: Disch IP Allergies, Adverse Reactions, Alerts Substance Criticality Severity Reaction Reaction Severity Status aspirin Active Rocephin Active Motrin Active Lactose Active Immunizations Given and Recorded Vaccine Date Status Refusal Reason pneumococcal 23-valent vaccine 01/17/12 Given Medications Acetaminophen = 650 mg, By Mouth, Every 6 hours, PRN as needed RAZA,PAIN/FEVER, 0 Refills, Maintenance, 08/25/13 11:15:54 AM EST Start Date: 08/25/13 Status: Ordered Repeat number: 1 atenolol 25 mg oral tablet 25 mg, Tablet, By Mouth, 03/16/25 9:00:00 AM EDT Start Date: 03/16/25 Stop Date: 03/16/25 Status: Completed Repeat number: 1 atenolol 25 mg oral tablet 25 mg, 1, tablet, By Mouth, 2 times a day, # 60 tablet, Refills 0, Maintenance, 03/13/25 10:13:00 AMEDT, Partial fill upon patient request if the prescription is for a schedule II opioid drug. Start Date: 03/13/25 Status: Ordered Quantity: 60.0 Unit: tablet Repeat number: 1 atorvastatin 80 mg oral tablet = 80 mg, By Mouth, Daily at bedtime, # 30 tablet, 0 Refills, Maintenance, 03/16/25 10:54:00 AM EDT, Tablet, [facility], Partial fill upon patient request if the prescription is for a schedule II opioid drug., 148, cm, 09/03/23 23:07:00 EST, Height, 48.2, kg, 03/13/25 18:03:00 EDT, Dry Weight Start Date: 03/16/25 Stop Date: 04/15/25 Status: Ordered Quantity: 30.0 Unit: tablet Repeat number: 1 cholecalciferol 1000 intl units oral tablet 1 tablet = 25 mcg, By Mouth, Daily, # 30 tablet, 0 Refills, Maintenance, 03/13/25 10:17:00 AM EDT, Tablet, Partial fill upon patient request if the prescription is for a schedule II opioid drug. Start Date: 03/13/25 Status: Ordered Quantity: 30.0 Unit: tablet Repeat number: 1 clopidogrel 75 mg oral tablet 75 mg, By Mouth, Daily, # 30 tablet, Refills 0, Tot. Refills 0, Maintenance, 03/16/25 10:54:00 AM EDT, Route to Pharmacy Electronically, [facility], Partial fill upon patient request if the prescription is for a schedule II opioid drug., 148, cm, 09/03/23 23:07:00 EST, Height, 48.2, kg, 03/13/25 18:03:00 EDT, Dry Weight Start Date: 03/16/25 Status: Ordered Quantity: 30.0 Unit: tablet Repeat number: 1 famotidine 40 mg oral tablet 1 tablet = 40 mg, By Mouth, Daily at bedtime, # 90 tablet, 0 Refills, Maintenance, 03/13/25 10:13:00AM EDT, Tablet, Partial fill upon patient request if the prescription is for a schedule II opioid drug. Start Date: 03/13/25 Status: Ordered Quantity: 90.0 Unit: tablet Repeat number: 1 ferrous sulfate 325 mg oral tablet 1 tablet = 325 mg, By Mouth, Daily in AM, # 270 tablet, 0 Refills, Maintenance, 06/04/13 3:41:30 PMEST, Tablet Start Date: 06/04/13 Status: Ordered Quantity: 270.0 Unit: tablet Repeat number: 1 fluvoxaMINE 100 mg oral tablet 1 tablet = 100 mg, By Mouth, Daily at bedtime, # 30 tablet, 0 Refills, Maintenance, 07/21/23 10:16:00 PM EST, Tablet, Partial fill upon patient request if the prescription is for a schedule II opioiddrug. Start Date: 07/21/23 Status: Ordered Quantity: 30.0 Unit: tablet Repeat number: 1 fluvoxaMINE 50 mg oral tablet 1 tablet = 50 mg, By Mouth, Daily at bedtime, # 30 tablet, 0 Refills, Maintenance, 03/13/25 10:12:00AM EDT, Tablet, Partial fill upon patient request if the prescription is for a schedule II opioid drug. Start Date: 03/13/25 Status: Ordered Quantity: 30.0 Unit: tablet Repeat number: 1 hydrALAZINE 25 mg oral tablet 25 mg, Tablet, By Mouth, 03/16/25 9:00:00 AM EDT Start Date: 03/16/25 Stop Date: 03/16/25 Status: Completed Repeat number: 1 hydrALAZINE 25 mg oral tablet 25 mg, By Mouth, 3 times a day, # 30 tablet, Refills 0, Tot. Refills 0, Maintenance, 03/16/25 10:54:00 AM EDT, Route to Pharmacy Electronically, [facility], Partial fill upon patient request if the prescription is for a schedule II opioid drug., 148, cm, 09/03/23 23:07:00 EST, Height, 48.2, kg, 03/13/25 18:03:00 EDT, Dry Weight Start Date: 03/16/25 Status: Ordered Quantity: 30.0 Unit: tablet Repeat number: 1 Lactaid Ultra 9000 units oral tablet 1 tablet = 9,000 units, By Mouth, Every 6 hours, PRN as needed, 0 Refills, Maintenance, 09/05/13 12:19:40 PM EST, Tablet Start Date: 09/05/13 Status: Ordered Repeat number: 1 levothyroxine 0.1 mg oral tablet 1 tablet = 0.1 mg, By Mouth, Daily, # 30 tablet, 0 Refills, Maintenance, 01/29/12 1:16:38 PM EDT, Tablet Start Date: 01/29/12 Stop Date: 02/28/12 Status: Ordered Quantity: 30.0 Unit: tablet Repeat number: 1 loperamide 2 mg oral tablet 1 tablet = 2 mg, By Mouth, Every 6 hours, PRN Loose Stool, 0 Refills, Maintenance, 08/25/13 11:16:38 AM EST Start Date: 08/25/13 Status: Ordered Repeat number: 1 losartan 25 mg oral tablet 25 mg, Tablet, By Mouth, 03/16/25 9:00:00 AM EDT Start Date: 03/16/25 Stop Date: 03/16/25 Status: Completed Repeat number: 1 losartan 25 mg oral tablet 25 mg, By Mouth, Daily, # 30 tablet, Refills 0, Tot. Refills 0, Maintenance, 03/16/25 10:54:00 AM EDT, Route to Pharmacy Electronically, [facility], Partial fill upon patient request if the prescription is for a schedule II opioid drug., 148, cm, 09/03/23 23:07:00 EST, Height, 48.2, kg, 03/13/25 18:03:00 EDT, Dry Weight Start Date: 03/16/25 Status: Ordered Quantity: 30.0 Unit: tablet Repeat number: 1 metoclopramide 5 mg oral tablet 1 tablet = 5 mg, By Mouth, 2 times a day, 0 Refills, Maintenance, 03/13/25 10:13:00 AM EDT, Partial fill upon patient request if the prescription is for a schedule II opioid drug. Start Date: 03/13/25 Status: Ordered Repeat number: 1 Multiple Vitamins with Minerals oral kit 1 tablet, By Mouth, Daily in AM, 0 Refills, Maintenance, 01/15/12 1:01:24 PM EDT Start Date: 01/15/12 Status: Ordered Repeat number: 1 Tussin DM 20 mg-200 mg/10 mL oral liquid 10 mL, By Mouth, Every 4 hours, PRN as needed for cough, not to exceed 6 doses/day, # 120 mL, 0 Refills, Maintenance, 03/13/25 10:18:00 AM EDT, Liquid, Partial fill upon patient request if the prescription is for a schedule II opioid drug. Start Date: 03/13/25 Status: Ordered Quantity: 120.0 Unit: mL Repeat number: 1 Problem List Condition Confirmation Course Effective Dates Status H ealth Status Informant Cognitive developmental delay Confirmed Active Depression Confirmed Active Hypothyroidism Confirmed Active Kidney disease Confirmed Active Results Radiology Reports * Exam Date Time Procedure Performing Provider Status 03/14/25 12:43 AM MRI Brain W+W/O Contrast Auth (Verified) Notes: (MRI Brain W+W/O Contrast) Reason For Exam: weakness, AMS;Other: RESULT: MRI Brain W+W/O Contrast MRI Brain W+W/O Contrast INDICATION / CLINICAL QUESTION: Reason: Other:; weakness, AMS; Clinical Question(s): Other:; infarct, MS; Order Comment: Please see Reference Text for complete list of contraindications Other: TECHNIQUE: MRI of the brain was performed with and without contrast utilizing sagittal and axial T1, axial T2, axial SWAN, and axial DWI sequences, and post- contrast 3D T1 [place] and 3D sagittal FLAIRwith multiplanar reformats. 9 mL of Prohance was administered intravenously. COMPARISON: 05/17/2013. CT scan of the head and CTA of the head and neck 03/13/2025. FINDINGS: BRAIN and EXTRA-AXIAL SPACES: The flow voids through the tangirnaq of Talavera are maintained. A 6 mm focus of DWI bright and slightly ADC hypointense signal is present within the lateral left thalamus. New chronic left pontine lacunar infarct. Small foci of susceptibility artifact in the left centrum semiovale, posterior right temporooccipital parenchyma, thalami, right vaishnavi, right parietal and occipital lobes, and left temporal lobe. A focus of encephalomalacia within the left temporal lobe with susceptibility artifact is also present. Severe confluent and patchy FLAIR bright signal within the subcortical, deep cerebral, and periventricular white matter has increased in extent. Hazy FLAIR bright signal within the vaishnavi has also increased, and there is also new hazy FLAIR bright signal within the vaishnavi and right middle cerebellar peduncle. There is involvement of the undersurface of the corpus callosum. The major dural venous sinuses are patent. No abnormal intracranial enhancement. EXTRACRANIAL SOFT TISSUES: The visualized extracranial soft tissues and orbital structures are unremarkable. BONES: Marrow signal is normal. IMPRESSION: 1. 6 mm focus of mildly restricted diffusion within the left lateral thalamus compatible with a subacute lacunar infarct. 2. New chronic left pontine lacunar infarct. 3. Small focus of encephalomalacia with susceptibility artifact within the left temporal lobe whichmay represent a chronic hematoma. 4. Multiple foci of susceptibility artifact distributed throughout the supratentorial brain parenchyma. The distribution of lesions is compatible with microhemorrhage related to hypertension. 5. Diffuse supratentorial and pontine white matter signal abnormality has progressed since the prior examination. The findings are nonspecific, but is compatible with chronic microangiopathic/small vessel ischemic change. The sequela of an inflammatory process is within the differential diagnosis. No enhancing lesions. WSN: [id number] Ordering Physician: Cuca Mendez Dictated By: Calvin Jung MD Dictated Date/Time: 03/14/25 8:49 am Reviewed By: Calvin Jung MD Signed By: Calvin Jung MD Signed Date/Time: 03/14/25 8:49 am Transcribed By: ERIC Transcribed Date/Time: 03/14/25 8:28 am * Exam Date Time Procedure Performing Provider Status 03/13/25 7:42 PM Abdomen AP Auth ([facility] ed) Notes: (Abdomen AP) Reason For Exam: need for MRI;Foreign Body RESULT: XR Abdomen AP XR Abdomen AP 1 view INDICATION/CLINICAL QUESTION: Reason: Foreign Body; need for MRI; Clinical Question(s): Foreign Body COMPARISON: None FINDINGS: Normal bowel gas pattern. No evidence of obstruction. No evidence of supine pneumoperitoneum. No organomegaly, masses or calcifications. No acute bone findings. There are 2 EKG electrodes, one projecting over the left upper abdomen and 1 along the left upper lateral abdominal wall. Chain surgical sutures noted in the right upper abdomen, and left upper abdomen related to prior partial gastrectomy. There is an adjacent surgical clip noted. Multiple surgical clips in the left upper abdomen. IMPRESSION: Chain surgical sutures in the right and left upper abdomen, related to prior partial gastrectomy. Multiple surgical clips in the left upper abdomen and a single surgical clip at the right upper abdomen. EKG electrodes projecting over the left upper abdomen and along the left lateral mid abdominal wall. No other radiopaque foreign body seen. WSN: [id number] Ordering Physician: Evon Fiore Dictated By: Rebecca Clark MD Dictated Date/Time: 03/13/25 8:03 pm Reviewed By: Rebecca Clark MD Signed By: Rebecca Clark MD Signed Date/Time: 03/13/25 8:03 pm Transcribed By: ERIC Transcribed Date/Time: 03/13/25 7:57 pm * Exam Date Time Procedure Performing Provider Status 03/13/25 7:42 PM Chest 2 Views Frontal and Lat Auth (Verified) Notes: (Chest 2 Views Frontal and Lat) Reason For Exam: need for MRI;Foreign Body RESULT: Chest 2 Views Frontal and Lat Chest 2 Views Frontal and Lat Reason: Foreign Body; need for MRI; Clinical Question(s): Foreign Body; Order Comment: pt in transport @ 03 13 2025 18:19:23 EDT - TY COMPARISON: [facility], most recent dated 09/17/2023 FINDINGS: LINES AND TUBES: None. LUNGS AND PLEURA: No focal pulmonary opacity. Normal pulmonary vascularity. No evidence of pleural effusion. Lung apices are slightly obscured by overlying chin however no definite pneumothorax. HEART, MEDIASTINUM AND ANA: Heart is normal in size. Normal mediastinal and hilar contour. BONES AND SOFT TISSUES: No acute abnormality. Diffuse quantitative osteopenia. Stable surgical clips in the left upper abdomen. EKG clip in the left lower lateral chest wall. No other radiopaque foreign body seen. IMPRESSION: Surgical clips in the left upper abdomen. No other radiopaque foreign body seen. No acute abnormality in the chest. WSN: [id number] Ordering Physician: Evon Fiore Dictated By: Rebecca Clark MD Dictated Date/Time: 03/13/25 7:55 pm Reviewed By: Rebecca Clark MD Signed By: Rebecca Clark MD Signed Date/Time: 03/13/25 7:55 pm Transcribed By: ERIC Transcribed Date/Time: 03/13/25 7:53 pm * Exam Date Time Procedure Performing Provider Status 03/13/25 8:[address] Angio Neck Hyperacute Stroke Rosey Frank; Modified Notes: (CT Angio Neck Hyperacute Stroke) Reason For Exam: Stroke;Other: ADDENDUM: CT Angio Neck Hyperacute Stroke This addendum is to note additional finding: There is a soft tissue asymmetry in the larynx, which is significantly degraded by motion, could berelated to artifact, but developing lesion cannot be excluded. Of note, no asymmetric laryngeal lesion in the CT cervical spine from 2023. Recommend outpatient CT neck follow-up. Updated IMPRESSION: 1. Within confines of mild motion degradation, no large vessel occlusion in the arteries of head and neck. Nonspecific, rather diffuse luminal irregularity and scattered mild-moderate stenosis affecting bilateral A2-A3 ACAs, M2 MCAs, and left proximal P2 CAGE UNLOADER, suggestive of underlying vasculopathy with vasculitis being considered as differential. 2. Soft tissue asymmetry in the larynx, possibly artifact, but lesion cannot be excluded. Recommendoutpatient CT neck follow. This addendum was discussed with Teto Gomez DO by telephone on 03/13/2025 10:32 AM with confirmedreceipt of information. WSN: [id number] Ordering Physician: Teto Gomez Dictated By: Rosey Etienne DO Dictated Date/Time: 03/13/25 10:34 a Reviewed By: Rosey Etienne DO Signed By: Rosey Etienne DO Signed Date/Time: 03/13/25 10:34 am Transcribed By: ERIC Transcribed Date/Time: 03/13/25 10:27 am RESULT: CT Angio Neck Hyperacute Stroke CT Angio Head Hyperacute Stroke, CT Angio Neck Hyperacute Stroke Reason: Other:; Stroke; Clinical Question(s): Other:; Hematoma Aneurysm / Other: TECHNIQUE: CT angiogram of the head and neck was performed after bolus administration of intravenous contrast. 100 mL of Isovue 300 was administered intravenously. Coronal and sagittal MIP reformatted images were obtained. Additional 3-D images were created on a separate workstation under concurrent supervision by the attending radiologist. All stenoses are measured using NASCET criteria. Weight-based protocol using automatic tube modulation was used to optimize exposure parameters. CTDIvol Body: 8.27 mGy, DLP Body: 236 mGy*cm. CTDIvol Head: 45.50 mGy, DLP Head: 772 mGy*cm. COMPARISON: Noncontrast CT head performed concurrently. MR brain 05/17/2013 FINDINGS: Mild motion degradation at the level of carotid bifurcations and lower neck. Within confines: CTA OF THE NECK: Arch: There is a two vessel aortic arch, with common origin of the brachiocephalic artery and left common carotid artery. There is mild atherosclerotic plaque of the aortic arch, but origins of the supra aortic vessels are patent. Right carotid system: The common carotid and cervical internal carotid arteries are patent. There is calcified atherosclerotic plaque at the carotid bifurcation, but no ICA stenosis (0%) by NASCET criteria. Within confines of motion degradation, no discrete dissection. Left carotid system: The common carotid and cervical internal carotid arteries are patent. There ispredominantly noncalcified atherosclerotic plaque at the carotid bifurcation, but no ICA stenosis (0%) by NASCET criteria. Within the confines of motion degradation, no discrete dissection. There is a co-dominant vertebral artery system. Right vertebral: The right vertebral origin is partially obscured due to artifact from contrast bolus. No significant stenosis. No evidence of dissection or aneurysm. Left vertebral: No significant stenosis. No evidence of dissection or aneurysm. Other: Soft tissues and bones: No evidence of lymphadenopathy or mass. The thyroid gland is obscured by motion artifact. Visualized lungs are blurred by motion artifact, without significant superimposed airspace opacity. Mild degenerative changes of the cervical spine are noted, without acute osseous abnormality. CTA OF THE HEAD: Anterior circulation: Bilateral intracranial ICAs demonstrate mild atherosclerotic calcification, without stenosis. Diffuse luminal irregularity affecting bilateral A2 and proximal ACAs with multifocal mild narrowing (505:23). Mild luminal irregularity of right sylvian fissure M2 MCA segments (505:13), and to a lesser extent affecting left M2 MCA segments. Bilateral FRANCISCO JAVIER and MCA branches are otherwise patent without proximal occlusion. Posterior circulation: Mild segmental stenosis of proximal left P2 segment (501:421). Bilateral intracranial vertebral arteries, the basilar artery, and bilateral superior cerebellar and posterior cerebral branches are otherwise patent without proximal occlusion. Left PICA originates from the left vertebral artery, patent. The right PICA origin is not clearly visualized, but suspected right AICA-PICA variant. Veins: The major dural venous sinuses are not well opacified due to early phase of contrast enhancement. Other: Soft tissues and bones: No midline shift or effacement of the basal cisterns. No space-occupying hemorrhage. Orbits are unremarkable. No significant opacification in the paranasal sinuses or mastoid air cells. IMPRESSION: Within confines of mild motion degradation, no large vessel occlusion in the arteries of head and neck. Nonspecific, rather diffuse luminal irregularity and scattered mild-moderate stenosis affectingbilateral A2-A3 ACAs, M2 MCAs, and left proximal P2 CAGE UNLOADER, suggestive of underlying vasculopathy withvasculitis being considered as differential. WSN: [id number] Ordering Physician: Teto Gomez Dictated By: Rosey Etienne DO Dictated Date/Time: 03/13/25 8:48 am Reviewed By: Rosey Etienne DO Signed By: Rosey Etienne DO Signed Date/Time: 03/13/25 8:48 am Transcribed By: ERIC Transcribed Date/Time: 03/13/25 8:23 am * Exam Date Time Procedure Performing Provider Status 03/13/25 8:[address] Angio Head Hyperacute Stroke Rosey Frank; Modified Notes: (CT Angio Head Hyperacute Stroke) Reason For Exam: Stroke;Other: ADDENDUM: CT Angio Head Hyperacute Stroke This addendum is to note additional finding: There is a soft tissue asymmetry in the larynx, which is significantly degraded by motion, could berelated to artifact, but developing lesion cannot be excluded. Of note, no asymmetric laryngeal lesion in the CT cervical spine from 2023. Recommend outpatient CT neck follow-up. Updated IMPRESSION: 1. Within confines of mild motion degradation, no large vessel occlusion in the arteries of head and neck. Nonspecific, rather diffuse luminal irregularity and scattered mild-moderate stenosis affecting bilateral A2-A3 ACAs, M2 MCAs, and left proximal P2 CAGE UNLOADER, suggestive of underlying vasculopathy with vasculitis being considered as differential. 2. Soft tissue asymmetry in the larynx, possibly artifact, but lesion cannot be excluded. Recommendoutpatient CT neck follow. This addendum was discussed with Teto Gomez DO by telephone on 03/13/2025 10:32 AM with confirmedreceipt of information. WSN: [id number] Ordering Physician: Teto Gomez Dictated By: Rosey Etienne DO Dictated Date/Time: 03/13/25 10:34 a Reviewed By: Rosey Etienne DO Signed By: Rosey Etienne DO Signed Date/Time: 03/13/25 10:34 am Transcribed By: ERIC Transcribed Date/Time: 03/13/25 10:27 am RESULT: CT Angio Head Hyperacute Stroke CT Angio Head Hyperacute Stroke, CT Angio Neck Hyperacute Stroke Reason: Other:; Stroke; Clinical Question(s): Other:; Hematoma Aneurysm / Other: TECHNIQUE: CT angiogram of the head and neck was performed after bolus administration of intravenous contrast. 100 mL of Isovue 300 was administered intravenously. Coronal and sagittal MIP reformatted images were obtained. Additional 3-D images were created on a separate workstation under concurrent supervision by the attending radiologist. All stenoses are measured using NASCET criteria. Weight-based protocol using automatic tube modulation was used to optimize exposure parameters. CTDIvol Body: 8.27 mGy, DLP Body: 236 mGy*cm. CTDIvol Head: 45.50 mGy, DLP Head: 772 mGy*cm. COMPARISON: Noncontrast CT head performed concurrently. MR brain 05/17/2013 FINDINGS: Mild motion degradation at the level of carotid bifurcations and lower neck. Within confines: CTA OF THE NECK: Arch: There is a two vessel aortic arch, with common origin of the brachiocephalic artery and left common carotid artery. There is mild atherosclerotic plaque of the aortic arch, but origins of the supra aortic vessels are patent. Right carotid system: The common carotid and cervical internal carotid arteries are patent. There is calcified atherosclerotic plaque at the carotid bifurcation, but no ICA stenosis (0%) by NASCET criteria. Within confines of motion degradation, no discrete dissection. Left carotid system: The common carotid and cervical internal carotid arteries are patent. There ispredominantly noncalcified atherosclerotic plaque at the carotid bifurcation, but no ICA stenosis (0%) by NASCET criteria. Within the confines of motion degradation, no discrete dissection. There is a co-dominant vertebral artery system. Right vertebral: The right vertebral origin is partially obscured due to artifact from contrast bolus. No significant stenosis. No evidence of dissection or aneurysm. Left vertebral: No significant stenosis. No evidence of dissection or aneurysm. Other: Soft tissues and bones: No evidence of lymphadenopathy or mass. The thyroid gland is obscured by motion artifact. Visualized lungs are blurred by motion artifact, without significant superimposed airspace opacity. Mild degenerative changes of the cervical spine are noted, without acute osseous abnormality. CTA OF THE HEAD: Anterior circulation: Bilateral intracranial ICAs demonstrate mild atherosclerotic calcification, without stenosis. Diffuse luminal irregularity affecting bilateral A2 and proximal ACAs with multifocal mild narrowing (505:23). Mild luminal irregularity of right sylvian fissure M2 MCA segments (505:13), and to a lesser extent affecting left M2 MCA segments. Bilateral FRANCISCO JAVIER and MCA branches are otherwise patent without proximal occlusion. Posterior circulation: Mild segmental stenosis of proximal left P2 segment (501:421). Bilateral intracranial vertebral arteries, the basilar artery, and bilateral superior cerebellar and posterior cerebral branches are otherwise patent without proximal occlusion. Left PICA originates from the left vertebral artery, patent. The right PICA origin is not clearly visualized, but suspected right AICA-PICA variant. Veins: The major dural venous sinuses are not well opacified due to early phase of contrast enhancement. Other: Soft tissues and bones: No midline shift or effacement of the basal cisterns. No space-occupying hemorrhage. Orbits are unremarkable. No significant opacification in the paranasal sinuses or mastoid air cells. IMPRESSION: Within confines of mild motion degradation, no large vessel occlusion in the arteries of head and neck. Nonspecific, rather diffuse luminal irregularity and scattered mild-moderate stenosis affectingbilateral A2-A3 ACAs, M2 MCAs, and left proximal P2 CAGE UNLOADER, suggestive of underlying vasculopathy withvasculitis being considered as differential. WSN: [id number] Ordering Physician: Teto Gomez Dictated By: Rosey Etienne DO Dictated Date/Time: 03/13/25 8:48 am Reviewed By: Rosey Etienne DO Signed By: Rosey Etienne DO Signed Date/Time: 03/13/25 8:48 am Transcribed By: ERIC Transcribed Date/Time: 03/13/25 8:23 am * Exam Date Time Procedure Performing Provider Status 03/13/25 8:[address] Head-Hyper Acute Stroke Auth (Verified) Notes: (CT Head-Hyper Acute Stroke) Reason For Exam: Stroke;Other: RESULT: CT Head-Hyper Acute Stroke CT Head-Hyper Acute Stroke INDICATION: Reason: Other:; Stroke; Clinical Question(s): Other:; Hematoma Infarction TECHNIQUE: Noncontrast head CT using axial technique and reconstructed in axial and coronal planes.Iterative reconstruction techniques are used to optimize dose and image quality. COMPARISON: 09/17/2023. FINDINGS: Lap Grinder view findings, lines and tubes: None. BRAIN AND EXTRA-AXIAL SPACES: No parenchymal hemorrhage, midline shift, or mass effect. Leach-white matter differentiation is wellpreserved. No acute infarct. Negative insular ribbon sign. Atherosclerotic vascular calcification of the carotid arteries but negative hyperdense vessel sign. Moderate prominence of the ventricles and sulci consistent with parenchymal volume loss. Severe low-density white matter changes. No subarachnoid hemorrhage. No subdural or epidural collection. CALVARIUM, SKULL BASE, AND SOFT TISSUES: No fractures or suspicious bony lesions. The paranasal sinuses and mastoid air cells are clear. Visualized orbits and globes are intact. The extracranial soft tissues are unremarkable. IMPRESSION: No acute intracranial pathology. Severe low-density white matter changes. WSN: [id number] Ordering Physician: Teto Gomez Dictated By: Rebeka Mendieta MD Dictated Date/Time: 03/13/25 8:26 am Reviewed By: Rebeka Mendieta MD Signed By: Rebeka Mendieta MD Signed Date/Time: 03/13/25 8:26 am Transcribed By: ERIC Transcribed Date/Time: 03/13/25 8:22 am Social History Social History Type Response Smoking Status Former smoker; Type: Cigarettes entered on: 01/10/16 Sex Female Sex Representation Female (finding) Admission evaluation note * Suman Maxwell DO: PERFORM, MODIFY, MODIFY, MODIFY, MODIFY, MODIFY, MODIFY, MODIFY Event Display: Admission Note Authored Date: Patient: ??JEET, YING ? Age:??70 Years?Sex:??Female?:??1955?? Chief Complaint/Reason for Consultation from skilled nursing. 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 PMH of intueectual disability History of Present Illness 70-year-old female with a past medical history of cognitive delay hypothyroidism, depression comingfrom skilled nursing after having dizziness starting on 03/13 was unable to get out of her chair.?? At that time patient was unable to elaborate on her symptoms but does not appear that she had any focal ne urological deficits aside from potential right shoulder weakness per EMS..?? Patient was AO x 3 at that time and did have bilateral exotropia but no diplopia.?? Room spinning dizziness has been intermittent since this morning.?? NIHSS score was 0 ?? Vitals: Blood pressure 180/93 HR 63 a febrile 97% onRA on admission. Most recent BP 169/81 HR 52 remaining vitals WNL ?? labs: CBC within normal limits no leukocytosis.?? INR PT APTT within normal limits sed rate within normal limits BMP within normal limits UA unremarkable ?? Imaging: CT head acute stroke showed no acute intracranial pathology.?? Severe low-density white matter changes noted however.?? CT angio neck no large vessel occlusion and arteries of the head and neck.?? Nonspecific diffuse luminal irregularities and scattered mild to moderate stenosis affecting bilateral A2-A3 FRANCISCO JAVIER's, M2 MCA's left proximal P2 CAGE UNLOADER suggestive of underlying vasculopathy.?? Soft tissue asymmetry in the larynx possible artifact but lesion cannot be excluded with recommendation for outpatient CT neck follow-up. ?? Confirmed with skilled nursing the patient takes pills at home without any issues.?? Reportedly patient has soft diet at home.?? Per Rosalinda from skilled nursing patient is very independent at baseline and able to ambulate. ?? At bedside pt was mildly confused aox2 unable to state year correctly but was able to recall why she was in the hospital although she did not have great depth in understanding of what is currently being done for her. Unclear what her baseline cognition is given her delay. ?? Prior note from 11 years ago in advanced directives stating pt to be comfort care and DNR DNI. Does not seem pt has capacity at this time. Called brother Christofer twice without an answer to confirm this. Called skilled nursing who stated pt has been treated for medical conditions and she is unaware of pt being comfort care. She confirmed DNR as well. senior living to attempt to contact hcp as well to see if true asa allergy and reach back. Review of Systems A review of systems was completed and is otherwise negative except as mentioned in history of present illness. Objective Measurements?? Weight: 48.4 kg (03/13/25) ?? Vital Signs?? Temperature: 97.8 DegF (03/13/25 13:13:00) Temperature Route: Oral (03/13/25 13:13:00) Pulse Rate:??52 bpm??Low (03/13/25 13:13:00) Respiratory Rate: 18 br/min (03/13/25 13:13:00) Systolic Blood Pressure:??169 mm Hg??High (03/13/25 13:13:00) Diastolic Blood Pressure: 81 mm Hg (03/13/25 13:13:00) Blood pressure sites: Arm, left (03/13/25 11:20:00) Mean Arterial Pressure: 110 mm Hg (03/13/25 13:13:00) Pulse Pressure: 88 mm Hg (03/13/25 13:13:00) Oxygen Saturation: 98 % (03/13/25 13:13:00) Mode of Delivery (Oxygen): Room air (03/13/25 13:13:00) Early Warning Score: 2 (03/13/25 13:16:47) ? Physical Exam General: The patient was found resting and in no acute distress. HEENT:??NCAT, EOMI, no scleral icterus,??moist mucus membranes, trachea midline. Cardiovascular: RRR S1 and S2 heard with no murmurs, rubs or gallops. Respiratory: Breath sounds clear to auscultation bilaterally. No wheezing. GI: Soft. Nontender and nondistended. Normal bowel sounds present. MSK: No edema, no erythema in the lower extremities. Mild weakness in R shoulder appears unchanged from arrival. Pt has some difficulty following commands fully. Skin:??No rashes, bruises or skin breakdown. Neuro: No gross motor or neuro deficits. Sensation intact throughout. Psych: Alert and oriented x2 Assessment/Plan Diagnoses Anemia ??(D64.9) Chronic GERD ??(K21.9) Cognitive developmental delay ??(F81.9) Depression ??(F32.A) Hypothyroidism ??(E03.9) Right arm weakness ??(R29.898) Stroke-like symptoms ??(R29.90) Vasculitis ??(I77.6) ?? 70-year-old female with a past medical history of cognitive delay hypothyroidism, depression coming from skilled nursing after having dizziness starting on 03/13 was unable to get out of her chair.?? Atthat time patient was unable to elaborate on her symptoms but does not appear that she had any focal neurological deficits aside from potential right shoulder weakness per EMS..?? Patient was AO x 3 at that time and did have bilateral exotropia but no diplopia.?? Room spinning dizziness has been intermittent since this morning.?? NIHSS score was 0. Neuro evaluated pt and recommended MRI for stroke rule out. ?? Stroke rule out Vasculitis Cognitive delay Hypothyroidism ?? CT head acute stroke showed no acute intracranial pathology.?? Severe low- density white matter changes noted however.?? CT angio neck no large vessel occlusion and arteries of the head and neck.?? Nonspecific diffuse luminal irregularities and scattered mild to moderate stenosis affecting bilateralA2-A3 FRANCISCO JAVIER's, M2 MCA's left proximal P2 CAGE UNLOADER suggestive of underlying vasculopathy.?? Soft tissue asymmetry in the larynx possible artifact but lesion cannot be excluded with recommendation for outpatient CT neck follow-up. inflammatory markers were low making vasculitis less likely a1c WNL ?? Recommendations: - q4hr neuro checks - MRI of brain w/wo to assess for infarct and vasculitis crawford -started atorvastatin 80 mg given LDL ?? - cardiac telemetry - DVT ppx with SQH - permissive hypertension - provide stroke education - outpatient goals LDL between 40 &70, A1C <7%, and BP <120/80 -call pts hcp bill (phone number chart in am) to confirm asa allergy, will do clopidogrel 75 mg daily instead -TSH with reflex T4 ordered WNL will restart home levo ?? Soft tissue asymmetry in the larynx Soft tissue asymmetry in the larynx noted on ct. artifact, may need outpatient f/u ?? Plan Outpatient follow-up CT ?? GERD continue famotidine BROOKE no signs of bleeding. plan -Daily CBC -Continue to monitor for signs of bleeding -Transfuse for Hgb<7 ?? Quality Measures Code:??DNR/DNI?? DVT prophylaxis:??Heparin BID SC_?? Diet:??soft dental? Patient care discussed with Dr. Zackery Maxwell, DO Internal Medicine PGY-3 Pager [phone] ?? Histories Allergies Allergies ?(Active and Proposed Allergies Only) Rocephin? (Severity: Unknown severity, Onset: Unknown) Lactose? (Severity: Unknown severity, Onset: Unknown) Motrin? (Severity: Unknown severity, Onset: Unknown) aspirin? (Severity: Unknown severity, Onset: Unknown) ? Past Medical History/Problem List Active Problems(4) Cognitive developmental delay Depression Hypothyroidism Kidney disease ? Past Surgical History no prior surgical hx ? Social History Tobacco Details:??Former smoker, Type: Cigarettes. no alcohol use or illicit drug use ?? Family History no significant fhx ? Medications Home Medications Acetaminophen??650 Milligram By Mouth Every 6 hours as needed as needed RAZA,PAIN/FEVER Atenolol (atenolol 25 mg oral tablet)??25 Milligram 1 tablet By Mouth 2 times a day Cholecalciferol (cholecalciferol 1000 intl units oral tablet)??1 tab(s) 25 Microgram By Mouth Daily Famotidine (famotidine 40 mg oral tablet)??1 tab(s) 40 Milligram By Mouth Daily at bedtime Ferrous Sulfate (ferrous sulfate 325 mg oral tablet)??1 tab(s) 325 Milligram By Mouth Daily in AM Fluvoxamine (fluvoxaMINE 100 mg oral tablet)??1 tab(s) 100 Milligram By Mouth Daily at bedtime Fluvoxamine (fluvoxaMINE 50 mg oral tablet)??1 tab(s) 50 Milligram By Mouth Daily at bedtime Guaifenesin/Dextromethorphan (Tussin DM 20 mg-200 mg/10 mL oral liquid)??10 Milliliter By Mouth Every 4 hours as needed as needed for cough not to exceed 6 doses/day Lactase (Lactaid Ultra 9000 units oral tablet)??1 tab(s) 9,000 unit(s) By Mouth Every 6 hours as needed as needed Levothyroxine (levothyroxine 0.1 mg oral tablet)??1 tab(s) 0.1 Milligram By Mouth Daily for 30 Days Loperamide (loperamide 2 mg oral tablet)??1 tab(s) 2 Milligram By Mouth Every 6 hours as needed Loose Stool Metoclopramide (metoclopramide 5 mg oral tablet)??1 tab(s) 5 Milligram By Mouth 2 times a day Multivitamin With Minerals (Multiple Vitamins with Minerals oral kit)??1 tab(s) By Mouth Daily in AM ? Inpatient Medications Medications (14) Active SCHEDULED: (6) Atorvastatin 80 mg Tablet (atorvastatin 80 mg oral tablet) ??80 mg, By Mouth, Daily at bedtime Famotidine 20 mg Tablet (famotidine 20 mg oral tablet) ??40 mg, By Mouth, Daily at bedtime Ferrous Sulfate 325 mg EC Tablet (ferrous sulfate 325 mg oral tablet) ??325 mg, By Mouth, Daily in AM Heparin 5000 units/mL Inj (1 mL) (Heparin Inj) ??5,000 units 1 mL, Subcutaneous Injection, 2 times a day Levothyroxine 100 mcg Tablet (levothyroxine 0.1 mg oral tablet) ??0.1 mg, By Mouth, Daily NaCl 0.9% Flush 3ml (NaCL 0.9% Flush) ??3 mL, IV Push, Every 8 hours CONTINUOUS: (0) PRN: (8) Acetaminophen 325 mg Tablet (Acetaminophen Tablet) ??650 mg, By Mouth, Every 4 hours Dextromethorphan-Guaifenesin 20 mg-200 mg/10 mL Liqu UD (Robitussin DM Liquid) ??10 mL, By Mouth, Every 4 hours Loperamide 2 mg Capsule (loperamide 2 mg oral capsule) ??2 mg, By Mouth, Every 6 hours Melatonin 3 mg Tablet (Melatonin Tablet) ??3 mg, By Mouth, Daily at bedtime NaCl 0.9% Flush 3ml (NaCL 0.9% Flush) ??3 mL, IV Push, Every 8 hours Polyethylene Glycol 17 Gm Powder (MiraLax Powder) ??17 Gm 1 pack/packet, By Mouth, Daily Senna Tablet ??8.6 mg 1 tablet, By Mouth, 2 times a day Simethicone 80 mg Chewable Tablet (Simethicone Tablet) ??80 mg, Chew, 3 times a day ? Results Recent Labs BLOOD BANK Blood Type O Positive ()?? 03/13/2025 08:07 Antibody Screen Negative ()?? 03/13/2025 08:07 ?? BLOOD COUNT & DIFF WBC 8.8 k/mm3 ()?? 03/13/2025 10:30 RBC 4.73 m/mm3 ()?? 03/13/2025 10:30 Hgb 13.6 Gm/dL ()?? 03/13/2025 10:30 Hct 41.5 % ()?? 03/13/2025 10:30 MCV 87.7 femtoliters ()?? 03/13/2025 10:30 MCH 28.8 pg ()?? 03/13/2025 10:30 MCHC 32.8 Gm/dL (Low)?? 03/13/2025 10:30 Platelet Count 245 k/mm3 ()?? 03/13/2025 10:30 RDW-SD 39.8 femtoliters ()?? 03/13/2025 10:30 MPV 10.2 femtoliters ()?? 03/13/2025 10:30 Nucleated RBC (Automated) 0.0 #/100 WBC'S ()?? 03/13/2025 10:30 Abs. NRBC 0.0 k/mm3 ()?? 03/13/2025 10:30 ?? CHEM GENERAL Sodium 136 mmol/L ()?? 03/13/2025 10:30 Potassium 4.0 mmol/L ()?? 03/13/2025 10:30 Chloride 98 mmol/L ()?? 03/13/2025 10:30 Bicarbonate Level 26 mmol/L ()?? 03/13/2025 10:30 Anion Gap 12 mmol/L ()?? 03/13/2025 10:30 Glucose Level 110 mg/dL (High)?? 03/13/2025 10:30 Glucose, POC 112 mg/dL (High)?? 03/13/2025 08:08 BUN 12 mg/dL ()?? 03/13/2025 10:30 Creatinine-Blood 0.90 mg/dL ()?? 03/13/2025 10:30 Estimated GFR Creatinine 68 ML/MIN/1.73 M2 ()?? 03/13/2025 10:30 AST (SGOT) 21 units/L ()?? 03/13/2025 10:30 C-Reactive Protein 0.5 mg/dL ()?? 03/13/2025 10:30 ?? COAG INR 1.1 ()?? 03/13/2025 10:30 Protime (PT) 11.2 seconds ()?? 03/13/2025 10:30 APTT 25.9 seconds ()?? 03/13/2025 10:30 ?? HEME OTHER Sed Rate 19 mm/hr ()?? 03/13/2025 10:30 ?? UA/URINALYSIS Appear/Color, Urine COLORLESS ()?? 03/13/2025 10:36 Specific Riggins, Urine 1.030 ()?? 03/13/2025 10:36 pH, Urine 6.5 ()?? 03/13/2025 10:36 Albumin, Urine NEGATIVE ()?? 03/13/2025 10:36 Glucose, Urine NEGATIVE ()?? 03/13/2025 10:36 Ketones, Urine NEGATIVE ()?? 03/13/2025 10:36 Bilirubin, Urine NEGATIVE ()?? 03/13/2025 10:36 Hemoglobin, Urine NEGATIVE ()?? 03/13/2025 10:36 Nitrite, Urine NEGATIVE ()?? 03/13/2025 10:36 Leukocyte, Urine NEGATIVE ()?? 03/13/2025 10:36 Urobilinogen NORMAL mg/dL ()?? 03/13/2025 10:36 WBC's, Urine 3 /HPF ()?? 03/13/2025 10:36 RBC's, Urine <1 /HPF () 03/13/2025 10:36 Hold Urine Culture Testing available 48 hours from time of collection. ()?? 03/13/2025 10:36 ? EKG study * Event Display: EKG Authored Date: * Event Display: ECG 12-Lead Authored Date: Please click on pdf link to open report * Event Display: ECG 12-Lead Authored Date: Ventricular Rate: 57 BPM Atrial Rate: 57 BPM P-R Interval: 158 ms QRS Duration: 74 ms Q-T Interval: 424 ms QTC Calculation(Bazett): 412 ms P Goodwin: 33 degrees R Goodwin: 1 degrees T Goodwin: 40 degrees Sinus bradycardia Minimal voltage criteria for LVH, may be normal variant Cannot rule out Anterior infarct (cited on or before 17-Sep-2023) Abnormal ECG When compared with ECG of 17-Sep-2023 11:44, No significant change was found Confirmed by PANFILO DELVALLE MD ([id number]) on 03/14/2025 9:39:03 AM Converse: PANFILO DELVALLE MD US Heart * Event Display: Echocardiogram - Complete Authored Date: Transthoracic Echocardiography Report (TTE) Patient Demographics Patient Name YING MARCANO Date of Study 03/15/2025 Corporate Gender Female Facility Race Ethnicity Date of 1955 Height: 60 inches Age 70 year(s) Weight: 48.13 pounds Accession Number [id number] BSA: 1.02 m2 Room Number D323 BMI: 9.4 kg/m2 Referring Physician Unassigned Interpreting Darby Prieto Unassigned Physician P Tdp Displays Analyst Carroll Shaikh RD Indications CVA. Clinical History STROKE LIKE SYMPTOM RIGHT ARM WEAKNESS VASCULITIS COGNITIVE DEVELOPMENTAL DELAY HYPOTHYROIDISM ANEMIA Study Data Type of Study TTE procedure:Echo Complete-Doppler, Colorflow, M-Mode. Study Date03/15/2025 Start Time: 10:36 AM Study Location: [facility] Adult Echo Study Status: Bedside Patient Status: Routine Technical Quality: Good Blood Pressure:182/92 mmHg EKG: Normal sinus rhythm HR: 69 bpm Allergies - Aspirin. - Other allergy:(motrin, tylenol). 2D Measurements LV Diastolic Dimension: 3.9 cm LV Systolic Dimension: 3.3 cm LV Septum Diastolic: 1 cm LV PW Diastolic: 1 cm AO Root Dimension: 2.5 cm LA Dimension: 3.8 cm LA ESV (BP):50.1 ml LVOT Stroke Volume: 72.35 ml LA ESV Index: 49 ml/m2 Stroke Volume Index70.93 ml/m2 LVOT: 2.1 cm Cardiac Index:4.89 l/min/m2 Ascending Aorta:2.8 cm Doppler Measurements AV Peak Velocity: 121 cm/s MV Peak E-Wave: 49.7 cm/s AV Peak Gradient: 5.86 mmHg MV Peak A-Wave: 66 cm/s AV Mean Gradient: 3 mmHg MV E/A Ratio: 0.75 AV VTI:26.3 cm LVOT Peak Velocity: 96.2 cm/s LVOT VTI20.9 cm MV Deceleration Time: 232 msec AV Area (Continuity):2.75 cm2 TR Velocity:191 cm/s PV Peak Velocity: 91.3 cm/s TR Gradient:14.59 mmHg PV Peak Gradient: 3.33 mmHg E' Septal Velocity: 6.42 cm/s E' Lateral Velocity: 8.27 cm/s E/Med E':[id number] E/Lat E':6.612675 Cardiac Anatomy Left Ventricle/Interventricular Septum Left ventricular wall thickness is normal. Grade I, mild diastolic dysfunction with impaired LV relaxation and normal left atrial pressure. Normal left ventricular size and function with ejection fraction of 60-65%. No focal wall motion abnormalities. Left Atrium/Interatrial Septum The left atrium is normal in size. Aortic Valve The aortic valve is trileaflet and normal in structure and function. There is no aortic stenosis. Trace insufficiency. Mitral Valve Normal mitral valve structure. Trace regurgitation. No significant stenosis. Aorta The ascending aorta and aortic root are normal in size (indexed for sex and BSA). Right Ventricle Normal right ventricular size and function. Right Atrium The right atrium is normal in size. Pulmonic Valve The pulmonic valve was not well visualized. Trace pulmonic regurgitation. No pulmonic stenosis. Tricuspid Valve The tricuspid valve is normal in structure and function. There is trace regurgitation. Pumonary Artery An accurate pulmonary artery pressure could not be obtained. Venous Structures Normal IVC size and respiratory collapse. Pericardium/Extracardiac There is no pericardial effusion. Summary Normal left ventricular size and function with ejection fraction of 60-65%. No focal wall motion abnormalities. Normal right ventricular size and function. No significant valvular disease. Comparison Comparison is made to the study of July 24, 2023. The poor image quality of the previous study precludes comparison with the current study. Signature * Event Display: Echocardiogram - Complete Authored Date: [id number] Cardiology * Event Display: Cardiac Rhythm Strips Authored Date: Hospital Progress note * Denny WEAVER, Allison Dowling: MODIFY, PERFORM, MODIFY, MODIFY, MODIFY Event Display: Progress Note Hospital Authored Date: [id number] Patient: ??YING MARCANO ? Age:??70 Years?Sex:??Female?:??1955?? History of Present Illness 03/16/2025 Interval History : No reports of any acute events overnight.?? Review of Systems GEN:??Denies fevers, chills HEENT: Denies headaches, vision changes, ear pain, tinnitus, URI symptoms, throat pain.??Admits to hearing??impairment and wears bilateral hearing aids. CV: Denies chest pain RESP: Denies shortness of breath GI: Denies??nausea, vomiting, diarrhea.?? : Denies??dysuria MUSK: Denies??joint pain, muscle aches/pains PSYCH: Denies??depression, anxiety NEURO: Denies??vision changes, speech changes, change in swallow, weakness, sensory changes, imbalance, dizziness, headaches, numbness,?? paresthesias?? Physical Exam Vitals & Measurements Vital Signs?? Temperature: 97.8 DegF (03/16/25 10:09:00) Temperature Route: Oral (03/16/25 10:09:) Pulse Rate: 67 bpm (03/16/25 10:09:00) Respiratory Rate: 16 br/min (03/16/25 10:09:00) Systolic Blood Pressure: 130 mm Hg (03/16/25 10:09:00) Diastolic Blood Pressure: 73 mm Hg (03/16/25 10:09:00) Blood pressure sites: Arm, right (03/16/25 10:09:00) Mean Arterial Pressure: 92 mm Hg (03/16/25 10:09:00) Pulse Pressure: 57 mm Hg (03/16/25 10:09:00) Oxygen Saturation: 98 % (03/16/25 10:09:00) Mode of Delivery (Oxygen): Room air (08/25/25 10:09:00) Early Warning Score: 0 (03/16/25 14:21:10) No qualifying data available. GENERAL:??Elderly female patient sitting on side of her bed in no apparent distress HEENT:??Head normocephalic, atraumatic. Eyes symmetrical, no ptosis, drainage or discharge. Hearingimpairment - even to loud voice - no hearing aid in place. Smile symmetrical.?? CV:??Perfusion warm. RESP: Respirations even and unlabored.?? Abdomen:??Nondistended :??No frequency or urgency MUSK:??No??deformity??or loss of muscle tone PSYCH:??No anxiety, appears calm. Neuro: Mental status??: Alert and oriented to time, place, person and event. Follows simple and complex??commands.??Identifies objects.??Speech is fluent, appropriate with no slurring or aphasia. No paraphrasing errors. Cranial Nerves: II :??Bilateral Pupils 3mm reacted briskly to light III, IV, : EOM intact, no gaze preference or deviation. No ptosis. No nystagmus. Visual field intact. Face appears symmetric with no drooping. Facial sensation intact.?? VII : No facial weakness VIII: Normal hearing to speech IX , X: No uvular deviation XI: Shoulder shrug equal and strong bilaterally. XII: Tongue midline Motor : No increase or decrease in tone or spasticity. No pronator drift. Strength :?? Bilateral electrostatic painter : 5/5 Bilateral deltoids: 5/5 Bilateral Biceps: 5/5 Bilateral Triceps: 5/5 Bilateral knee extensions : 5/5 RUE holds up off bed for 10 seconds without drift LUE holds up off bed for 10 seconds without drift RLE holds up off bed for??5 seconds without drift LLE holds up off bed for??5 seconds without drift Sensory:?? Sensation intact throughout to light touching in all limbs.??No extinction??to??bilateral??double??simultaneous??stimuli. Coordination : Finger to nose negative for dysmetria. No ataxia with??heel to suero. Gait :??Steady Assessment/Plan 70 y/o F with PMH of cognitive delay who resides at a skilled nursing, hypothyroidism and depression whopresented on 03/13 with nonspecific sx. The skilled nursing reported that they called EMS as patient could not get out of her chair which is atypical for her with c/o vertigo.??CTH nonacute, severe WMD. CTA head/neck shows concern for vasculitis, but with normal ESR and CRP this is unlikely.?Exam today nonfocal. MRI brain??with new left thalamic infarct Echo:??EF 60 to 65% ?Diagnosis : L thalamic infarct likely secondary to small vessel disease, perhaps from underlying??Leukoaraiosis disease vs CADASIL or other ? Recommendations: -??q4hr neuro checks - recommend goal LDL <70 with high dose statin - will need loop recorder on discharge and stroke clinic followup (with Dr. Stringer due to concern for CADASIL)- already communicated - cardiac telemetry - Normotension - Continue??to provide stroke education - outpatient goals LDL between 40 &70, A1C <7%, and BP <120/80 ?? Labs and imaging reviewed ?? d/w Dr. Mendez??and??Dr. Oliva ?? Neurology signing off ?? Problem List/Past Medical History Ongoing Cognitive developmental delay Depression Hypothyroidism Kidney disease Hospital Medications Medications (19) Active SCHEDULED: (10) Atenolol 25 mg Tablet (atenolol 25 mg oral tablet) ??25 mg, By Mouth, 2 times a day Atorvastatin 80 mg Tablet (atorvastatin 80 mg oral tablet) ??80 mg, By Mouth, Daily at bedtime Clopidogrel 75 mg Tablet (clopidogrel 75 mg oral tablet) ??75 mg, By Mouth, Daily Famotidine 20 mg Tablet (famotidine 20 mg oral tablet) ??40 mg, By Mouth, Daily at bedtime Ferrous Sulfate 325 mg EC Tablet (ferrous sulfate 325 mg oral tablet) ??325 mg, By Mouth, Daily in AM Heparin 5000 units/mL Inj (1 mL) (Heparin Inj) ??5,000 units 1 mL, Subcutaneous Injection, 2 times a day hydrALAZINE 25 mg Tablet (hydrALAZINE 25 mg oral tablet) ??25 mg, By Mouth, 3 times a day Levothyroxine 100 mcg Tablet (levothyroxine 0.1 mg oral tablet) ??0.1 mg, By Mouth, Daily Losartan 25 mg Tablet (losartan 25 mg oral tablet) ??25 mg, By Mouth, Daily NaCl 0.9% Flush 3ml (NaCL 0.9% Flush) ??3 mL, IV Push, Every 8 hours CONTINUOUS: (0) PRN: (9) Acetaminophen 325 mg Tablet (Acetaminophen Tablet) ??650 mg, By Mouth, Every 4 hours Dextromethorphan-Guaifenesin 20 mg-200 mg/10 mL Liqu UD (Robitussin DM Liquid) ??10 mL, By Mouth, Every 4 hours Loperamide 2 mg Capsule (loperamide 2 mg oral capsule) ??2 mg, By Mouth, Every 6 hours Melatonin 3 mg Tablet (Melatonin Tablet) ??3 mg, By Mouth, Daily at bedtime NaCl 0.9% Flush 3ml (NaCL 0.9% Flush) ??3 mL, IV Push, Every 8 hours Ondansetron 2mg/mL Inj (2mL Vial) (Ondansetron Inj) ??8 mg, IV Push, Every 6 hours Polyethylene Glycol 17 Gm Powder (MiraLax Powder) ??17 Gm 1 pack/packet, By Mouth, Daily Senna Tablet ??8.6 mg 1 tablet, By Mouth, 2 times a day Simethicone 80 mg Chewable Tablet (Simethicone Tablet) ??80 mg, Chew, 3 times a day Allergies Lactose Motrin Rocephin aspirin Radiology (03/13/2025 08:[address] Head-Hyper Acute Stroke) IMPRESSION: ?? No acute intracranial pathology. ?? Severe low-density white matter changes. ? (03/13/2025 08:[address] Angio Neck Hyperacute Stroke) IMPRESSION: ? Within confines of mild motion degradation, no large vessel occlusion in the arteries of head and neck. Nonspecific, rather diffuse luminal irregularity and scattered mild-moderate stenosis affectingbilateral A2-A3 ACAs, M2 MCAs, and left proximal P2 CAGE UNLOADER, suggestive of underlying vasculopathy withvasculitis being considered as differential. ? (03/13/2025 08:[address] Angio Head Hyperacute Stroke) ?? IMPRESSION: ? Within confines of mild motion degradation, no large vessel occlusion in the arteries of head and neck. Nonspecific, rather diffuse luminal irregularity and scattered mild-moderate stenosis affectingbilateral A2-A3 ACAs, M2 MCAs, and left proximal P2 CAGE UNLOADER, suggestive of underlying vasculopathy withvasculitis being considered as differential. ? (03/14/2025 00:43 EDT MRI Brain W+W/O Contrast) IMPRESSION: ?? 1. 6 mm focus of mildly restricted diffusion within the left lateral thalamus compatible with a subacute lacunar infarct. 2. New chronic left pontine lacunar infarct. 3. Small focus of encephalomalacia with susceptibility artifact within the left temporal lobe whichmay represent a chronic hematoma. 4. Multiple foci of susceptibility artifact distributed throughout the supratentorial brain parenchyma. The distribution of lesions is compatible with microhemorrhage related to hypertension. 5. Diffuse supratentorial and pontine white matter signal abnormality has progressed since the prior examination. The findings are nonspecific, but is compatible with chronic microangiopathic/small vessel ischemic change. The sequela of an inflammatory process is within the differential diagnosis. No enhancing lesions. Lab Results Test Name Test Result Date/Time Platelet Count 267 k/mm3 03/15/2025 08:48 EDT Homocysteine, Plasma/Serum 20.3 ??mole/L 03/16/2025 08:12 EDT Recent Lab Results No qualifying data available. [1]??MRI Brain W+W/O Contrast; Calvin Jung MD 03/14/2025 00:43 EDT * Hazel CORRAL, [facility]: PERFORM Event Display: Progress Note Hospital Authored Date: [id number] Patient: ??JEET, YING ? Age:??70 Years?Sex:??Female?:??1955?? Subjective Patient denies any acute complaints, noted to be eating breakfast senior living unable to do intake on weekend; plan for dc tomorrow Review of Systems Negative except for the above Allergies Allergies ?(Active and Proposed Allergies Only) Rocephin? (Severity: Unknown severity, Onset: Unknown) Lactose? (Severity: Unknown severity, Onset: Unknown) Motrin? (Severity: Unknown severity, Onset: Unknown) aspirin? (Severity: Unknown severity, Onset: Unknown) ? Past Medical History Active Problems(4) Cognitive developmental delay Depression Hypothyroidism Kidney disease ? Past Surgical History No surgery history documented. ? Social History Tobacco Details:??Former smoker, Type: Cigarettes. ? Objective Vital Signs?? Temperature: 98 DegF (03/15/25 14:08:00) Temperature Route: Oral (03/15/25 14:08:00) Pulse Rate: 63 bpm (03/15/25 15:23:00) Respiratory Rate: 16 br/min (03/15/25 14:08:00) Systolic Blood Pressure:??178 mm Hg??High (03/15/25 15:23:00) Diastolic Blood Pressure:??86 mm Hg??High (03/15/25 15:23:00) Blood pressure sites: Arm, left (03/15/25 15:23:00) Mean Arterial Pressure: 117 mm Hg (03/15/25 15:23:00) Pulse Pressure: 92 mm Hg (03/15/25 15:23:00) Oxygen Saturation: 98 % (03/15/25 14:08:00) Mode of Delivery (Oxygen): Room air (03/15/25 14:08:00) Early Warning Score: 1 (03/15/25 15:24:04) ? Intake/Output? No Data Available ?? Mobility & Ambulation Level Mobility & Ambulation Level No qualifying data available. ? Physical Exam Constitutional: Alert, in no distress. Head: Normocephalic. Eyes: Pupils are equal, round and reactive to light. Extraocular muscles intact. Ear, Nose and Throat: Oropharynx clear, mucous membranes moist. Ears and nose without masses, lesions or deformities. Trachea midline. Neck: Supple, Full range of motion. Respiratory: Clear to auscultation. No wheezing, rales or rhonchi. Cardiovascular: S1 S2 regular. No murmurs, rubs or gallops. Gastrointestinal: Abdomen soft, non-tender, non-distended. Normal bowel sounds. No pulsatile mass. No hepatosplenomegaly. Genitourinary: No costovertebral angle tenderness. Neurologic: Cranial nerves II-XII grossly intact. No focal neurological deficits. Flexor plantar response. Moves all extremities spontaneously. Sensation intact bilaterally. Skin: No rashes or lesions. No petechiae or purpura.?? Musculoskeletal: No cyanosis or clubbing. No gross deformities. Normal range of motion. Heme/Lymphatics/Immun: Palpation of neck reveals no swelling or tenderness of neck nodes. Palpationof groin reveals no swelling or tenderness of groin nodes. Psychiatric: Normal mood and affect _ Home Medications Acetaminophen??650 Milligram By Mouth Every 6 hours as needed as needed RAZA,PAIN/FEVER Atenolol (atenolol 25 mg oral tablet)??25 Milligram 1 tablet By Mouth 2 times a day Cholecalciferol (cholecalciferol 1000 intl units oral tablet)??1 tab(s) 25 Microgram By Mouth Daily Famotidine (famotidine 40 mg oral tablet)??1 tab(s) 40 Milligram By Mouth Daily at bedtime Ferrous Sulfate (ferrous sulfate 325 mg oral tablet)??1 tab(s) 325 Milligram By Mouth Daily in AM Fluvoxamine (fluvoxaMINE 100 mg oral tablet)??1 tab(s) 100 Milligram By Mouth Daily at bedtime Fluvoxamine (fluvoxaMINE 50 mg oral tablet)??1 tab(s) 50 Milligram By Mouth Daily at bedtime Guaifenesin/Dextromethorphan (Tussin DM 20 mg-200 mg/10 mL oral liquid)??10 Milliliter By Mouth Every 4 hours as needed as needed for cough not to exceed 6 doses/day Lactase (Lactaid Ultra 9000 units oral tablet)??1 tab(s) 9,000 unit(s) By Mouth Every 6 hours as needed as needed Levothyroxine (levothyroxine 0.1 mg oral tablet)??1 tab(s) 0.1 Milligram By Mouth Daily for 30 Days Loperamide (loperamide 2 mg oral tablet)??1 tab(s) 2 Milligram By Mouth Every 6 hours as needed Loose Stool Metoclopramide (metoclopramide 5 mg oral tablet)??1 tab(s) 5 Milligram By Mouth 2 times a day Multivitamin With Minerals (Multiple Vitamins with Minerals oral kit)??1 tab(s) By Mouth Daily in AM ? Inpatient Medications Medications (19) Active SCHEDULED: (10) Atenolol 25 mg Tablet (atenolol 25 mg oral tablet) ??25 mg, By Mouth, 2 times a day Atorvastatin 80 mg Tablet (atorvastatin 80 mg oral tablet) ??80 mg, By Mouth, Daily at bedtime Clopidogrel 75 mg Tablet (clopidogrel 75 mg oral tablet) ??75 mg, By Mouth, Daily Famotidine 20 mg Tablet (famotidine 20 mg oral tablet) ??40 mg, By Mouth, Daily at bedtime Ferrous Sulfate 325 mg EC Tablet (ferrous sulfate 325 mg oral tablet) ??325 mg, By Mouth, Daily in AM Heparin 5000 units/mL Inj (1 mL) (Heparin Inj) ??5,000 units 1 mL, Subcutaneous Injection, 2 times a day hydrALAZINE 25 mg Tablet (hydrALAZINE 25 mg oral tablet) ??25 mg, By Mouth, 3 times a day Levothyroxine 100 mcg Tablet (levothyroxine 0.1 mg oral tablet) ??0.1 mg, By Mouth, Daily Losartan 25 mg Tablet (losartan 25 mg oral tablet) ??25 mg, By Mouth, Daily NaCl 0.9% Flush 3ml (NaCL 0.9% Flush) ??3 mL, IV Push, Every 8 hours CONTINUOUS: (0) PRN: (9) Acetaminophen 325 mg Tablet (Acetaminophen Tablet) ??650 mg, By Mouth, Every 4 hours Dextromethorphan-Guaifenesin 20 mg-200 mg/10 mL Liqu UD (Robitussin DM Liquid) ??10 mL, By Mouth, Every 4 hours Loperamide 2 mg Capsule (loperamide 2 mg oral capsule) ??2 mg, By Mouth, Every 6 hours Melatonin 3 mg Tablet (Melatonin Tablet) ??3 mg, By Mouth, Daily at bedtime NaCl 0.9% Flush 3ml (NaCL 0.9% Flush) ??3 mL, IV Push, Every 8 hours Ondansetron 2mg/mL Inj (2mL Vial) (Ondansetron Inj) ??8 mg, IV Push, Every 6 hours Polyethylene Glycol 17 Gm Powder (MiraLax Powder) ??17 Gm 1 pack/packet, By Mouth, Daily Senna Tablet ??8.6 mg 1 tablet, By Mouth, 2 times a day Simethicone 80 mg Chewable Tablet (Simethicone Tablet) ??80 mg, Chew, 3 times a day ? Results Recent Labs BLOOD COUNT & DIFF WBC 10.7 k/mm3 ()?? 03/15/2025 08:48 RBC 4.92 m/mm3 ()?? 03/15/2025 08:48 Hgb 14.0 Gm/dL ()?? 03/15/2025 08:48 Hct 43.1 % ()?? 03/15/2025 08:48 MCV 87.6 femtoliters ()?? 03/15/2025 08:48 MCH 28.5 pg ()?? 03/15/2025 08:48 MCHC 32.5 Gm/dL (Low)?? 03/15/2025 08:48 Platelet Count 267 k/mm3 ()?? 03/15/2025 08:48 RDW-SD 39.7 femtoliters ()?? 03/15/2025 08:48 MPV 9.9 femtoliters ()?? 03/15/2025 08:48 Nucleated RBC (Automated) 0.0 #/100 WBC'S ()?? 03/15/2025 08:48 Abs. NRBC 0.0 k/mm3 ()?? 03/15/2025 08:48 Abs. Neut 8.1 k/mm3 (High)?? 03/15/2025 08:48 Abs. Lymph 1.3 k/mm3 ()?? 03/15/2025 08:48 Abs. Roane 0.8 k/mm3 ()?? 03/15/2025 08:48 Abs. Eo 0.4 k/mm3 ()?? 03/15/2025 08:48 Abs. Baso 0.1 k/mm3 ()?? 03/15/2025 08:48 Neut % 75.7 % ()?? 03/15/2025 08:48 Lymph % 12.2 % (Low)?? 03/15/2025 08:48 Roane % 7.6 % ()?? 03/15/2025 08:48 Eos % 3.4 % ()?? 03/15/2025 08:48 Baso % 0.7 % ()?? 03/15/2025 08:48 Imm Gran 0.4 % ()?? 03/15/2025 08:48 Abs. Imm Gran 0.0 k/mm3 ()?? 03/15/2025 08:48 ?? CHEM GENERAL Sodium 133 mmol/L ()?? 03/15/2025 08:48 Potassium 4.0 mmol/L ()?? 03/15/2025 08:48 Chloride 96 mmol/L (Low)?? 03/15/2025 08:48 Bicarbonate Level 24 mmol/L ()?? 03/15/2025 08:48 Anion Gap 13 mmol/L ()?? 03/15/2025 08:48 Glucose Level 140 mg/dL (High)?? 03/15/2025 08:48 BUN 14 mg/dL ()?? 03/15/2025 08:48 Creatinine-Blood 0.97 mg/dL ()?? 03/15/2025 08:48 Estimated GFR Creatinine 62 ML/MIN/1.73 M2 ()?? 03/15/2025 08:48 Calcium 9.6 mg/dL ()?? 03/15/2025 08:48 ?? SEROLOGY INF DISEASE C. Difficile Toxin by PCR NEGATIVE ()?? 03/14/2025 08:23 ?? STOOL STUDIES GI PCR, Campylobacter NEGATIVE ()?? 03/14/2025 08:23 GI PCR, Plesiomonas shigelloides NEGATIVE ()?? 03/14/2025 08:23 GI PCR, Salmonella NEGATIVE ()?? 03/14/2025 08:23 GI PCR, Vibrio NEGATIVE ()?? 03/14/2025 08:23 GI PCR, Vibrio cholerae NEGATIVE ()?? 03/14/2025 08:23 GI PCR, Yersinia enterocolitica NEGATIVE ()?? 03/14/2025 08:23 GI PCR, Enteroaggregative E coli NEGATIVE ()?? 03/14/2025 08:23 GI PCR, Enteropathogenic E coli NEGATIVE ()?? 03/14/2025 08:23 GI PCR, Enterotoxigenic E coli NEGATIVE ()?? 03/14/2025 08:23 GI PCR, Qnhqq-gvxtl-tghtwfebi E coli NEGATIVE ()?? 03/14/2025 08:23 GI PCR, Shigella/Enteroinvasive E coli NEGATIVE ()?? 03/14/2025 08:23 GI PCR, Cryptosporidium NEGATIVE ()?? 03/14/2025 08:23 GI PCR, Cyclospora cayetanensis NEGATIVE ()?? 03/14/2025 08:23 GI PCR, Entamoeba histolytica NEGATIVE ()?? 03/14/2025 08:23 GI PCR, Giardia lamblia NEGATIVE ()?? 03/14/2025 08:23 GI PCR, Adenovirus F 40/41 NEGATIVE ()?? 03/14/2025 08:23 GI PCR, Astrovirus NEGATIVE ()?? 03/14/2025 08:23 GI PCR, Norovirus GI/GII NEGATIVE ()?? 03/14/2025 08:23 GI PCR, Rotavirus A NEGATIVE ()?? 03/14/2025 08:23 GI PCR, Sapovirus NEGATIVE ()?? 03/14/2025 08:23 ? Abnormal Labs ?? BLOOD COUNT & DIFF Abs. Imm Gran?0.0 k/mm3 ()?03/15/2025 08:48 Abs. NRBC?0.0 k/mm3 ()?03/15/2025 08:48 Abs. Neut?8.1 k/mm3 (High)?03/15/2025 08:48 Imm Gran?0.4 % ()?03/15/2025 08:48 Lymph %?12.2 % (Low)?03/15/2025 08:48 MCHC?32.5 Gm/dL (Low)?03/15/2025 08:48 Nucleated RBC (Automated)?0.0 #/100 WBC'S ()?03/15/2025 08:48 RDW-SD?39.7 femtoliters ()?03/15/2025 08:48 ?? CHEM GENERAL Chloride?96 mmol/L (Low)?03/15/2025 08:48 Estimated GFR Creatinine?62 ML/MIN/1.73 M2 ()?03/15/2025 08:48 Glucose Level?140 mg/dL (High)?03/15/2025 08:48 ?? Note: Critical results are displayed in red. ? Blood Glucose Trend Glucose Level:??140 mg/dL??High (03/15/25 08:48:00) ? Urinalysis?? No qualifying data available. ?? Microbiology ?? GI Profile, Stool, PCR?? Completed?? Source: Stool Body Site: ?? Collected Dt/Tm: 03/14/2025 08:25 Last Updated Dt/Tm: 03/14/2025 10:59 ?? C.diff PCR, w Rfx Toxin/Ag?? Completed?? Source: Stool Body Site: ?? Collected Dt/Tm: 03/14/2025 08:23 Last Updated Dt/Tm: 03/14/2025 12:02 ? Assessment/Plan 70-year-old female with a past medical history of cognitive delay hypothyroidism, depression comingfrom skilled nursing after having dizziness starting on 03/13 was unable to get out of her chair.?? At that time patient was unable to elaborate on her symptoms but does not appear that she had any focal ne urological deficits aside from potential right shoulder weakness per EMS..?? Patient was AO x 3 at that time and did have bilateral exotropia but no diplopia.?? Room spinning dizziness has been intermittent since this morning.?? NIHSS score was 0. Neuro evaluated pt and recommended MRI for stroke rule out. ?? Stroke Vasculitis Cognitive delay Hypothyroidism ?? CT head acute stroke showed no acute intracranial pathology.?? Severe low- density white matter changes noted however.?? CT angio neck no large vessel occlusion and arteries of the head and neck.?? Nonspecific diffuse luminal irregularities and scattered mild to moderate stenosis affecting bilateralA2-A3 FRANCISCO JAVIER's, M2 MCA's left proximal P2 CAGE UNLOADER suggestive of underlying vasculopathy.?? Soft tissue asymmetry in the larynx possible artifact but lesion cannot be excluded with recommendation for outpatient CT neck follow-up. inflammatory markers were low making vasculitis less likely a1c WNL ?? MRI brain L thalamic stroke ?? - cardiac telemetry - ECHO non acute - DVT ppx with SQH - permissive hypertension - provide stroke education - outpatient goals LDL between 40 &70, A1C <7%, and BP <120/80 -continue clopidogrel 75 mg daily given asa allergy -TSH with reflex T4 ordered WNL will restart home levo ?? Soft tissue asymmetry in the larynx Soft tissue asymmetry in the larynx noted on ct. artifact, may need outpatient f/u ?? Plan Outpatient follow-up CT ?? GERD continue famotidine BROOKE no signs of bleeding. plan -Daily CBC -Continue to monitor for signs of bleeding -Transfuse for Hgb<7 ?? OMN --??skilled nursing unable to take on weekend; dc on sunday ? Order Date/Time Order Action Order Name Order Detail 03/15/2025 16:48 Order hydrALAZINE 25 mg Tablet (hydrALAZINE 25 mg oral tablet) 25 mg, By Mouth, 3 times a day 03/15/2025 13:52 Order Status Inpatient (Inpatient Status) Level of Care: Acute, Reason for Inpt Services: CVA, Est. Hospital Stay: 3-4 nights, Posthospital Care Plans: Home, 03/15/25 13:52:00 EDT 03/15/2025 12:20 Order Losartan 50 mg Tablet (losartan 50 mg oral tablet) 50 mg, By Mouth, Once 03/15/2025 09:46 Order Atenolol 25 mg Tablet (atenolol 25 mg oral tablet) 25 mg, By Mouth, 2 times a day 03/15/2025 09:45 Order Losartan 25 mg Tablet (losartan 25 mg oral tablet) 25 mg, By Mouth, Daily 03/15/2025 08:53 Modify Basic Metabolic Panel Timed Study, 03/15/25 8:53:00 EDT, C 03/15/2025 07:21 Order Basic Metabolic Panel Timed Study, for 3 days, 03/15/25 7:21:00 EDT 03/15/2025 07:21 Order CBC w/ Differential Timed Study, for 3 days, 03/15/25 7:21:00 EDT ? Functional Measures?? No qualifying data available. ?? * Elena GAR, Dory [facility]: PERFORM Event Display: Progress Note Hospital Authored Date: Patient: ??JEET, YING ? Age:??70 Years?Sex:??Female?:??1955?? Chief Complaint/Reason for Consult from skilled nursing. 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 PMH of intueectual disability History of Present Illness Interval??history: no new complaints or concerns Echo pending report seen by PT- recommending home with rehab Review of Systems 10 point ROS reviewed and negative except as noted in HPI Physical Exam Vitals & Measurements Vital Signs?? Temperature: 98 DegF (03/15/25 14:08:00) Temperature Route: Oral (03/15/25 14:08:00) Pulse Rate: 68 bpm (03/15/25 14:08:00) Respiratory Rate: 16 br/min (03/15/25 14:08:00) Systolic Blood Pressure:??205 mm Hg??High (03/15/25 14:08:00) Diastolic Blood Pressure: 83 mm Hg (03/15/25 14:08:00) Blood pressure sites: Arm, left (03/15/25 14:08:00) Mean Arterial Pressure: 124 mm Hg (03/15/25 14:08:00) Pulse Pressure: 122 mm Hg (03/15/25 14:08:00) Oxygen Saturation: 98 % (03/15/25 14:08:00) Mode of Delivery (Oxygen): Room air (03/15/25 14:08:00) Early Warning Score: 4 (03/15/25 14:12:38) No qualifying data available. Gen: NAD, awake, alert HEENT: normocephalic, atraumatic. No ptosis. Nares patent. Mouth normal. Psych: not depressed or anxious Cardio: RRR Lungs: normal I:E Abdomen: nondistended Extremities: no edema Skin: no rashes Mental status: intact, Speech is fluent, appropriate with no slurring or aphasia.?? Names well. Follows simple and complexcommands. Cranial Nerves: PERRL, WEBINO, VFF. Face appears symmetric with no drooping or weakness.?? Motor: 5/5 bilaterally. No pronator drift. Normal bulk and tone. No abnormal movements. Coordination: No ataxia or dysmetria noted with finger to nose.?? Sensation: Intact light touch sensation bilaterally. No extinction to DSS Assessment/Plan 70 y/o F with PMH of cognitive delay who resides at a skilled nursing, hypothyroidism and depression whopresented on 03/13 with nonspecific sx. The skilled nursing reported that they called EMS as patient could not get out of her chair which is atypical for her with c/o vertigo.NIHSS 0.??CTH nonacute, severeWMD. CTA head/neck shows concern for vasculitis, but with normal ESR and CRP this is unlikely. Examwith b/l WEBINO but unclear if this is??new or chronic. MRI confirms stroke. Echo pending ?? Ddx: L thalamic CVA suspect secondary to small vessel disease, perhaps from underlying??Leukoaraiosis disease vs CADASIL or other ? Recommendations: -??q4hr neuro checks - ASA 81mg daily - recommend goal LDL <70 with high dose statin -will need loop recorder on discharge and stroke clinic followup (with Dr. Stringer due to concern for CADASIL)- will set up - cardiac telemetry - NPO until passes swallow eval - DVT ppx with SQH - permissive hypertension - provide stroke education - outpatient goals LDL between 40 &70, A1C <7%, and BP <120/80 - will followup Echo. patient can be discharge once resulted ?? d/w Dr. Pozo, Dr. Oliva Problem List/Past Medical History Ongoing Cognitive developmental delay Depression Hypothyroidism Kidney disease Hospital Medications Medications (18) Active SCHEDULED: (9) Atenolol 25 mg Tablet (atenolol 25 mg oral tablet) ??25 mg, By Mouth, 2 times a day Atorvastatin 80 mg Tablet (atorvastatin 80 mg oral tablet) ??80 mg, By Mouth, Daily at bedtime Clopidogrel 75 mg Tablet (clopidogrel 75 mg oral tablet) ??75 mg, By Mouth, Daily Famotidine 20 mg Tablet (famotidine 20 mg oral tablet) ??40 mg, By Mouth, Daily at bedtime Ferrous Sulfate 325 mg EC Tablet (ferrous sulfate 325 mg oral tablet) ??325 mg, By Mouth, Daily in AM Heparin 5000 units/mL Inj (1 mL) (Heparin Inj) ??5,000 units 1 mL, Subcutaneous Injection, 2 times a day Levothyroxine 100 mcg Tablet (levothyroxine 0.1 mg oral tablet) ??0.1 mg, By Mouth, Daily Losartan 25 mg Tablet (losartan 25 mg oral tablet) ??25 mg, By Mouth, Daily NaCl 0.9% Flush 3ml (NaCL 0.9% Flush) ??3 mL, IV Push, Every 8 hours CONTINUOUS: (0) PRN: (9) Acetaminophen 325 mg Tablet (Acetaminophen Tablet) ??650 mg, By Mouth, Every 4 hours Dextromethorphan-Guaifenesin 20 mg-200 mg/10 mL Liqu UD (Robitussin DM Liquid) ??10 mL, By Mouth, Every 4 hours Loperamide 2 mg Capsule (loperamide 2 mg oral capsule) ??2 mg, By Mouth, Every 6 hours Melatonin 3 mg Tablet (Melatonin Tablet) ??3 mg, By Mouth, Daily at bedtime NaCl 0.9% Flush 3ml (NaCL 0.9% Flush) ??3 mL, IV Push, Every 8 hours Ondansetron 2mg/mL Inj (2mL Vial) (Ondansetron Inj) ??8 mg, IV Push, Every 6 hours Polyethylene Glycol 17 Gm Powder (MiraLax Powder) ??17 Gm 1 pack/packet, By Mouth, Daily Senna Tablet ??8.6 mg 1 tablet, By Mouth, 2 times a day Simethicone 80 mg Chewable Tablet (Simethicone Tablet) ??80 mg, Chew, 3 times a day Allergies Lactose Motrin Rocephin aspirin Recent Lab Results Abs. Baso: 0.1 k/mm3 (03/15/25 08:48:00) Abs. Eo: 0.4 k/mm3 (03/15/25 08:48:00) Abs. Imm Gran: 0 k/mm3 (03/15/25 08:48:00) Abs. Lymph: 1.3 k/mm3 (03/15/25 08:48:00) Abs. Roane: 0.8 k/mm3 (03/15/25 08:48:00) Abs. Neut:??8.1 k/mm3??High (03/15/25 08:48:00) Abs. NRBC: 0 k/mm3 (03/15/25 08:48:00) Anion Gap: 13 mmol/L (03/15/25 08:48:00) Baso %: 0.7 % (03/15/25 08:48:00) BUN: 14 mg/dL (03/15/25 08:48:00) Chloride:??96 mmol/L??Low (03/15/25 08:48:00) Eos %: 3.4 % (03/15/25 08:48:00) Estimated GFR Creatinine: 62 ML/MIN/1.73 M2 (03/15/25 08:48:00) Hct: 43.1 % (03/15/25 08:48:00) Hgb: 14 Gm/dL (03/15/25 08:48:00) Imm Gran: 0.4 % (03/15/25 08:48:00) Lymph %:??12.2 %??Low (03/15/25 08:48:00) MCH: 28.5 pg (03/15/25 08:48:00) MCHC:??32.5 Gm/dL??Low (03/15/25 08:48:00) MCV: 87.6 femtoliters (03/15/25 08:48:00) Roane %: 7.6 % (03/15/25 08:48:00) MPV: 9.9 femtoliters (03/15/25 08:48:00) Neut %: 75.7 % (03/15/25 08:48:00) Nucleated RBC (Automated): 0 #/100 WBC'S (03/15/25 08:48:00) Platelet Count: 267 k/mm3 (03/15/25 08:48:00) Potassium: 4 mmol/L (03/15/25 08:48:00) RBC: 4.92 m/mm3 (03/15/25 08:48:00) RDW-SD: 39.7 femtoliters (03/15/25 08:48:00) Sodium: 133 mmol/L (03/15/25 08:48:00) WBC: 10.7 k/mm3 (03/15/25 08:48:00) Consult note * Dania CORRAL, Ramón Hinson: PERFORM, MODIFY, MODIFY, MODIFY, MODIFY, MODIFY, MODIFY, MODIFY, MODIFY, MODIFY, MODIFY Event Display: Consultation Note Authored Date: Patient: ??JEET, YING ? Age:??70 Years?Sex:??Female?:??1955?? Chief Complaint/Reason for Consult from skilled nursing. 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 PMH of intueectual disability Stroke rehabilitation History of Present Illness 70-year-old woman with history of cognitive delay who resides at a skilled nursing, hypothyroidism admitted on 03/13/25 with nonspecific symptoms. The skilled nursing reported that they called EMS as patient could not get out of her chair which is atypical for her. With EMS, concern for R shoulder weakness. Patient??reported intermittent, room spinning dizziness. ??On admission,??SBP was in the??170s and NIHSS 0.??CTH nonacute, severe WMD. CTA head/neck shows concern for vasculitis, no LVO. ??Evaluated byneurology: CTA concerning for vasculitis and exam with JARRELL (unclear chronicity), although patient without visual complaints nor headache. ?? MRI of brain today shows??6 mm focus of mildly restricted diffusion within the left lateral thalamus compatible with a subacute lacunar infarct and a new chronic left pontine lacunar infarct. ?? On precautions for C. difficile. Review of Systems Pain 0/10.?? 14 point review of systems negative except as above. Physical Exam Vitals & Measurements T:??97.7?F?? HR:??64??(Peripheral)?? RR:??16?? BP:??151/86?? SpO2:??97%?? WT:??48.2??kg?? General: Alert. No apparent distress. Psychiatric: Mood: Normal. Pleasant & Cooperative Oriented: X??2 ?? HEENT: Cranial Nerves: no central facial droop.?? Bilat ERIKA. Blinks to threat bilaterally Visual neglect: None.?? Tracks: Bilaterally ?? Cardiovascular: RRR. Lungs:??No respiratory distress. ?? Extremities:?? Edema: None.?? Passive ROM: Normal all limbs.? Neurologic: ?? Follows Commands: 1 step well Memory: Impaired.?? Language: Normal. Naming: Normal. Dysarthria:??None.? Motor Exam: Motor strength 5/5 except??5-5 right shoulder Sensory Exam: light touch??symmetric in upper and lower extremities. ??No extinction. Coordination Exam: finger to nose without dysmetria. Symmetric muscle stretch reflexes in upper and lower extremities. Negative Mary and Babinski signs. Spasticity Exam: None.? Mobility Exam: Supine to sit independent, sitting balance independent, gait contact-guard.?? Assessment/Plan 70-year-old woman with history of cognitive delay who resides at a skilled nursing, hypothyroidism admitted on 03/13/25 with nonspecific symptoms. The skilled nursing reported that they called EMS as patient could not get out of her chair which is atypical for her. With EMS, concern for R shoulder weakness, which is minimal this morning. Patient??reported intermittent, room spinning dizziness. ??On admission,??SBP was in the??170s and NIHSS 0.??CTH nonacute, severe WMD. CTA head/neck shows concern for vasculitis, no LVO. ??Evaluated by neurology: CTA concerning for vasculitis and exam with JULISAINO (unclear chronicity), although patient without visual complaints nor headache. ?? MRI of brain today shows??6 mm focus of mildly restricted diffusion within the left lateral thalamus compatible with a subacute lacunar infarct and a new chronic left pontine lacunar infarct. ?? Vertigo has improved this morning. ??Mild imbalance. ?? On precautions for C. difficile. ?? MODIFIED LOLI SCALE for Stroke (Pre-Morbid??Status) 3?The patient has moderate disability; requiring some external help but able to walk without theassistance of another individual. ?? Rehabilitation Recommendations: ?? Activity:??With assist as tolerated. Bladder:??Voiding. Cognition/psychopharmacology: Peers to be at baseline.?? DVT prophylaxis:??On SC heparin. ?? Neurology:??Neurology service following. Pain Management:??Denies pain. ??Appears comfortable. Spasticity: None ?? Swallow: Passed nursing swallow evaluation. ??Tolerating diet. ?? Current rehab treatment & further recommendations: Physical Therapy:??Has been ordered??for therapeutic exercise, mobilization, transfers, assisted ambulation, balance and safety. Speech Therapy:??Does not need here unless difficulties develop with swallowing. Occupational Therapy:??Does not need here. ?? Disposition:??Anticipate return to skilled nursing. ?? Thank you for the consult.?Please call if physical medicine and rehabilitation can be of furtherassistance. ?? Code Status: Full Resuscitation HCP: Reportedly??has HCP ?? Total Time Spent: I spent a total of??60+ minutes today reviewing the chart/medical records, speaking with the patient, formulating and discussing the treatment plan, and documenting the findings and encounter. ?? Problem List/Past Medical History Ongoing Cognitive developmental delay Depression Hypothyroidism Kidney disease Procedure/Surgical History No qualifying data available. Home Medications Acetaminophen: 650 mg, By Mouth, Every 6 hours, PRN (as needed RAZA,PAIN/FEVER) Atenolol: 25 mg = 1 tablet, By Mouth, 2 times a day Cholecalciferol: 25 mcg = 1 tablet, By Mouth, Daily Famotidine: 40 mg = 1 tablet, By Mouth, Daily at bedtime Ferrous Sulfate: 325 mg = 1 tablet, By Mouth, Daily in AM Fluvoxamine: 50 mg = 1 tablet, By Mouth, Daily at bedtime Fluvoxamine: 100 mg = 1 tablet, By Mouth, Daily at bedtime Guaifenesin/Dextromethorphan: 10 mL, By Mouth, Every 4 hours, PRN (as needed for cough), not to exceed 6 doses/day Lactase: 9,000 units = 1 tablet, By Mouth, Every 6 hours, PRN (as needed) Levothyroxine: 0.1 mg = 1 tablet, By Mouth, Daily Loperamide: 2 mg = 1 tablet, By Mouth, Every 6 hours, PRN (Loose Stool) Metoclopramide: 5 mg = 1 tablet, By Mouth, 2 times a day Multivitamin With Minerals: 1 tablet, By Mouth, Daily in AM Hospital Medications Medications (15) Active SCHEDULED: (7) Atorvastatin 80 mg Tablet (atorvastatin 80 mg oral tablet) ??80 mg, By Mouth, Daily at bedtime Clopidogrel 75 mg Tablet (clopidogrel 75 mg oral tablet) ??75 mg, By Mouth, Daily Famotidine 20 mg Tablet (famotidine 20 mg oral tablet) ??40 mg, By Mouth, Daily at bedtime Ferrous Sulfate 325 mg EC Tablet (ferrous sulfate 325 mg oral tablet) ??325 mg, By Mouth, Daily in AM Heparin 5000 units/mL Inj (1 mL) (Heparin Inj) ??5,000 units 1 mL, Subcutaneous Injection, 2 times a day Levothyroxine 100 mcg Tablet (levothyroxine 0.1 mg oral tablet) ??0.1 mg, By Mouth, Daily NaCl 0.9% Flush 3ml (NaCL 0.9% Flush) ??3 mL, IV Push, Every 8 hours CONTINUOUS: (0) PRN: (8) Acetaminophen 325 mg Tablet (Acetaminophen Tablet) ??650 mg, By Mouth, Every 4 hours Dextromethorphan-Guaifenesin 20 mg-200 mg/10 mL Liqu UD (Robitussin DM Liquid) ??10 mL, By Mouth, Every 4 hours Loperamide 2 mg Capsule (loperamide 2 mg oral capsule) ??2 mg, By Mouth, Every 6 hours Melatonin 3 mg Tablet (Melatonin Tablet) ??3 mg, By Mouth, Daily at bedtime NaCl 0.9% Flush 3ml (NaCL 0.9% Flush) ??3 mL, IV Push, Every 8 hours Polyethylene Glycol 17 Gm Powder (MiraLax Powder) ??17 Gm 1 pack/packet, By Mouth, Daily Senna Tablet ??8.6 mg 1 tablet, By Mouth, 2 times a day Simethicone 80 mg Chewable Tablet (Simethicone Tablet) ??80 mg, Chew, 3 times a day Radiology MRI of brain 03/14/2025 - IMPRESSION: ?? 1. 6 mm focus of mildly restricted diffusion within the left lateral thalamus compatible with a subacute lacunar infarct. 2. New chronic left pontine lacunar infarct. 3. Small focus of encephalomalacia with susceptibility artifact within the left temporal lobe whichmay represent a chronic hematoma. 4. Multiple foci of susceptibility artifact distributed throughout the supratentorial brain parenchyma. The distribution of lesions is compatible with microhemorrhage related to hypertension.5. Diffuse supratentorial and pontine white matter signal abnormality has progressed since the prior examination. The findings are nonspecific, but is compatible with chronic microangiopathic/small vessel ischemic change. The sequela of an inflammatory process is within the differential diagnosis. No enhancing lesions. Lab Results PM&R Labs WBC: 8.8 k/mm3 (03/13/25) Platelet Count: 245 k/mm3 (03/13/25) Sodium: 136 mmol/L (03/13/25) BUN: 12 mg/dL (03/13/25) Creatinine-Blood: 0.9 mg/dL (03/13/25) AST (SGOT): 21 units/L (03/13/25 10:30:00) * Jaclyn Weber: PERFORM, MODIFY, MODIFY Event Display: Consultation Note Authored Date: [id number] Patient: ??JEET, YING ? Age:??70 Years?Sex:??Female?:??1955?? History of Present Illness 70 y/o F with PMH of cognitive delay who resides at a skilled nursing, hypothyroidism and depression whopresented on 03/13 with nonspecific sx. The skilled nursing was called by my attending, and they reportedthat they called EMS as patient could not get out of her chair which is atypical for her. With EMS,concern for R shoulder weakness. Patient notes intermittent, room spinning dizziness as well since standing up this morning. SBP 170s and NIHSS 0. Patient currently without complaints. ?? Stroke Time Course: Time patient last seen well (not time patient was found):??0700 Time patient arrived in ED:??0801 Time neurology consulted/paged:??[id number] Time of neurology response:??[address] head/interpreted:??0810 TNK given:??No TNK time if given: N/A Reason for??TNK exclusion if not given:??NIHSS0 Review of Systems As stated in HPI. Denies weakness, numbness, paresthesias, vision changes, speech changes, facial droop, headache.?? Objective ? Vital Signs?? Pulse Rate: 63 bpm (03/13/25 08:14:00) Respiratory Rate: 18 br/min (03/13/25 08:14:00) Systolic Blood Pressure:??180 mm Hg??High (03/13/25 08:14:00) Diastolic Blood Pressure:??93 mm Hg??High (03/13/25 08:14:00) Blood pressure sites: Arm, left (03/13/25 08:14:00) Oxygen Saturation: 97 % (03/13/25 08:14:00) Mode of Delivery (Oxygen): Room air (03/13/25 08:14:00) ? NIH Stroke Scale Level of Consciousness for Stroke Scale: Alert (03/13/25 08:23:00) Response Month/Age: Answers both questions correctly (03/13/25 08:23:00) Response Open/Close Eyes: Performs both tasks correctly (03/13/25 08:23:00) Best Gaze: Normal (03/13/25 08:23:00) Visual: No visual loss (03/13/25 08:23:00) Facial Palsy: Normal symmetrical movements (03/13/25 08:23:00) Motor Function Left Arm: No drift (03/13/25 08:23:00) Motor Function Right Arm: No drift (03/13/25 08:23:00) Motor Function Left Leg: No drift (03/13/25 08:23:00) Motor Function Right Leg: No drift (03/13/25 08:23:00) Limb Ataxia: Absent (03/13/25 08:23:00) Sensory: Normal; no sensory loss (03/13/25 08:23:00) Best Language: No aphasia (03/13/25 08:23:00) Dysarthria NIH Stroke Scale: Normal (03/13/25 08:23:00) Extinction and Inattention: No abnormality (03/13/25 08:23:00) NIH Stroke Scale Score: 0 (03/13/25 08:23:00) ?? [place] Coma Scale [place] Coma Score: 15 (03/13/25 08:14:00) Motor Response-Adult: Obeys commands (03/13/25 08:14:00) Response Eye Opening: Spontaneously (03/13/25 08:14:00) Verbal Response-Adult: Oriented and converses (03/13/25 08:14:00) ? Physical Exam Gen: NAD, awake, alert HEENT: normocephalic, atraumatic. No ptosis. Nares patent. Mouth normal. Psych: not depressed or anxious Cardio: RRR Lungs: normal I:E Abdomen: nondistended Extremities: no edema Skin: warm and dry Neuro: Mental status is??intact, no deficits Speech is fluent w/o dysarthria and aphasia. Follows simple commands. Cranial Nerves: PERRL, [place]. No facial droop. Facial sensation intact. Tongue midline. Shoulder shrug symmetric b/l. Motor: 5/5 b/l. No pronator drift. Normal bulk and tone. No abnormal movements. Sensation: Intact light touch sensation bilaterally. Coordination: No ataxia or dysmetria noted with finger to nose.? CT Head IMPRESSION: ?? No acute intracranial pathology. Severe low-density white matter changes. ?? Images have been personally reviewed by myself. ? CTA Head/Neck ??IMPRESSION: ? Within confines of mild motion degradation, no large vessel occlusion in the arteries of head and neck. Nonspecific, rather diffuse luminal irregularity and scattered mild-moderate stenosis affecting bilateral A2-A3 ACAs, M2 MCAs, and left proximal P2 CAGE UNLOADER, suggestive of underlying vasculopathy with vasculitis being considered as differential. ?? Images have been personally reviewed by myself. ? Assessment/Plan 70 y/o F with PMH of cognitive delay who resides at a skilled nursing, hypothyroidism and depression whopresented on 03/13 with nonspecific sx. The skilled nursing reported that they called EMS as patient could not get out of her chair which is atypical for her. With EMS, concern for R shoulder weakness. Patient notes intermittent, room spinning dizziness as well since standing up this morning. SBP 170s and NIHSS 0.??CTH nonacute, severe WMD. CTA head/neck shows concern for vasculitis, no LVO. Exam with b/l [place] but unclear if this is??new or chronic. ?? Ddx:??CTA concerning for vasculitis and exam with WEBIN[place] - unclear chronicity to WE[place] and patientwithout visual complaints nor headache ?? Recommendations: -??q4hr neuro checks - MRI of brain w/wo??to assess for infarct and vasculitis - ASA 81mg daily - check LDL. recommend goal LDL <70 with high dose statin - check A1C - check ESR/CRP - cardiac telemetry - NPO until passes swallow eval - DVT ppx with SQH - permissive hypertension - provide stroke education - outpatient goals LDL between 40 &70, A1C <7%, and BP <120/80 ?? D/w Dr. Elder D/w Dr. Arce Call/[place] Text??with any questions. Neurology will follow. ? Histories Allergies Allergies ?(Active and Proposed Allergies Only) Lactose? (Severity: Unknown severity, Onset: Unknown) Motrin? (Severity: Unknown severity, Onset: Unknown) aspirin? (Severity: Unknown severity, Onset: Unknown) ? Past Medical History/Problem List Active Problems(4) Cognitive developmental delay Depression Hypothyroidism Kidney disease ? Past Surgical History No surgery history documented. ? Social History Tobacco Details:??Former smoker, Type: Cigarettes. ? Family History No Family History documented. ? Medications Home Medications Acetaminophen??325 Milligram By Mouth Every 4 hours as needed as needed for pain Calcium And Vitamin D Combination (Calcium 600 +D oral tablet)??1 tab(s) By Mouth Daily at bedtime Carvedilol (carvedilol 6.25 mg oral tablet)??See Instructions TAKE 1 TABLET BY MOUTH TWICE A DAY Ferrous Sulfate (ferrous sulfate 325 mg oral tablet)??1 tab(s) 325 Milligram By Mouth Daily in AM Fluoxetine??50 Milligram By Mouth Daily at bedtime Fluvoxamine (fluvoxaMINE 100 mg oral tablet)??1 tab(s) 100 Milligram By Mouth Daily at bedtime Lactase (Lactaid Ultra 9000 units oral tablet)??2 tab By Mouth 3 times a day with meals Levothyroxine (levothyroxine 0.1 mg oral tablet)??1 tab(s) 0.1 Milligram By Mouth Daily for 30 Days Loperamide (loperamide 2 mg oral tablet)??1 tab(s) 2 Milligram By Mouth Every 4 hours as needed Loose Stool Losartan (losartan 50 mg oral tablet)??See Instructions TAKE 2 TABLETS BY MOUTH DAILY Multivitamin With Minerals (Multiple Vitamins with Minerals oral kit)??1 tab(s) By Mouth Daily in AM Nystatin Topical (nystatin topical 411272 u/gm powder)??1 applicator Topically 3 times a day apply to perirectal area Omeprazole (omeprazole 10 mg oral enteric coated capsule)??1 capsule 10 Milligram By Mouth Daily ? Results Recent Labs CHEM GENERAL Glucose, POC 112 mg/dL (High)?? 03/13/2025 08:08 ? Abnormal Labs ?? CHEM GENERAL Glucose, POC?112 mg/dL (High)?03/13/2025 08:08 ?? Note: Critical results are displayed in red. ? Blood Glucose Trend Glucose, POC:??112 mg/dL??High (03/13/25 08:08:00) ? CBC, CBC w/Diff?? No qualifying data available. ?? BMP, Mg, and Phos?? No qualifying data available. ?? Coagulation Profile?? No qualifying data available. ?? LFT?? No qualifying data available. ?? Urinalysis?? No qualifying data available. ? Blood Gases?? No qualifying data available. ?? Uric/LDH?? No qualifying data available. ? * Mark Elder MD: PERFORM Event Display: Consultation Note Authored Date: [id number] Attending Attestation:??I have seen and evaluated the patient. I have reviewed the patient???s medical history, findings on examination, diagnosis and treatment.?I have discussed the case and its management with the??Advanced Practitioner??and agree with the findings and plan as documented in the AP's note. ?? 70 y/o F with PMH of cognitive delay who resides at a skilled nursing, hypothyroidism and depression whopresented on 03/13 with dizziness. Accoridng to the skilled nursing person who didnt see the patient personally but was told that the patient had her normal morning and was waiting for the Van to go to [facility] than all of a sudden she was stuck and they called the ambulance and didnt notice any fo joelle findinds. The EMS noted possible right shoulder weakness? According to the patient she was dizzy but unable to elaboate if it was room spinning or light headedness. On exam she is AOx3, has bilateral exotropia and unclear if baseline, the patient denies any diplopia and when i called the staff they though her eyes were fine this moring, difficulty with following commands and is [place], rest CN intact, strength is 5/5 in all 4, sensation is intact and coordinaiton intact in BUE. ?? Her CT brain shows extensive white matter disease. CTA shows extesive vascular stenosis rither athero vs vasculitis. ?? Recommend to start aspirin, obtain MRI brain w/wo contrast, ESR/CRP, permissive HTN ?? Mark Elder M.D Attending-Vascular Neurology [id number] ? Please note - The above note was created using [employer] software and dictation errors may have occurred; I apologize for any mistakes in the database tester. ??Thank you for your patience as we continue to work on perfecting the dictation process. ??Please feel free to contact us for any clarification purposes. Note * Rani Singh RN: PERFORM Event Display: Discharge/Transfer Note Hospital Authored Date: [id number] Nursing Discharge Note Entered On: 03/16/2025 14:20 EDT Performed On: 03/16/2025 14:20 EDT by Rani Singh RN Nursing Discharge Note 2 Discharge Time : 03/16/2025 14:00 EDT Discharge Level of Care at Discharge : Home/Custodial/Foster Care Patient Left Unit Via : Wheelchair Patient Accompanied Off Unit with : Responsible adult DC Instructions Provided & Signed by Pt : Yes Patient Understands D/C Instructions : Yes Patient Instructions Discharge Signed : Yes Did Pt have Specialty Bed or Wound Vac : No Rani Singh RN - 03/16/2025 14:20 EDT * Hazel CORRAL, Bill: PERFORM Event Display: Discharge/Transfer Note Hospital Authored Date: [id number] Patient: ??JEET, YING ? Age:??70 Years?Sex:??Female?:??1955?? Patient Information Discharge Location: B Primary Care Physician: Donal CORRAL, Froy Willams Admit Date/Time: 03/15/2025 13:52 Discharge Disposition Discharge Disposition: senior living Discharge Diagnosis Stroke-like symptoms (R29.90) Right arm weakness (R29.898) Vasculitis (I77.6) Cognitive developmental delay (F81.9) Depression (F32.A) Hypothyroidism (E03.9) Anemia (D64.9) Chronic GERD (K21.9) _ Discharge Medications Acetaminophen??650 Milligram By Mouth Every 6 hours as needed as needed RAZA,PAIN/FEVER Atenolol (atenolol 25 mg oral tablet)??25 Milligram 1 tablet By Mouth 2 times a day Atorvastatin (atorvastatin 80 mg oral tablet)??80 Milligram By Mouth Daily at bedtime for 30 Days Cholecalciferol (cholecalciferol 1000 intl units oral tablet)??1 tab(s) 25 Microgram By Mouth Daily Clopidogrel (clopidogrel 75 mg oral tablet)??75 Milligram By Mouth Daily Famotidine (famotidine 40 mg oral tablet)??1 tab(s) 40 Milligram By Mouth Daily at bedtime Ferrous Sulfate (ferrous sulfate 325 mg oral tablet)??1 tab(s) 325 Milligram By Mouth Daily in AM Fluvoxamine (fluvoxaMINE 100 mg oral tablet)??1 tab(s) 100 Milligram By Mouth Daily at bedtime Fluvoxamine (fluvoxaMINE 50 mg oral tablet)??1 tab(s) 50 Milligram By Mouth Daily at bedtime Guaifenesin/Dextromethorphan (Tussin DM 20 mg-200 mg/10 mL oral liquid)??10 Milliliter By Mouth Every 4 hours as needed as needed for cough not to exceed 6 doses/day hydrALAZINE (hydrALAZINE 25 mg oral tablet)??25 Milligram By Mouth 3 times a day Lactase (Lactaid Ultra 9000 units oral tablet)??1 tab(s) 9,000 unit(s) By Mouth Every 6 hours as needed as needed Levothyroxine (levothyroxine 0.1 mg oral tablet)??1 tab(s) 0.1 Milligram By Mouth Daily for 30 Days Loperamide (loperamide 2 mg oral tablet)??1 tab(s) 2 Milligram By Mouth Every 6 hours as needed Loose Stool Losartan (losartan 25 mg oral tablet)??25 Milligram By Mouth Daily Metoclopramide (metoclopramide 5 mg oral tablet)??1 tab(s) 5 Milligram By Mouth 2 times a day Multivitamin With Minerals (Multiple Vitamins with Minerals oral kit)??1 tab(s) By Mouth Daily in AM ? Medications Started hydralazine losartan atorvastatin clopidogrel Allergies Allergies ?(Active and Proposed Allergies Only) Rocephin? (Severity: Unknown severity, Onset: Unknown) Lactose? (Severity: Unknown severity, Onset: Unknown) Motrin? (Severity: Unknown severity, Onset: Unknown) aspirin? (Severity: Unknown severity, Onset: Unknown) ? PCP Follow-Up/Heads-Up f/u for L thalamic stroke Future Appointments Sunday 4:00 PM EDT ?? With: Rosi CORRAL, [facility] Where: [facility] [address] [place] [address] 3rd Floor, [address] [place] [id number]- Status: Pending Objective Assessment and Plan 70-year-old female with a past medical history of cognitive delay hypothyroidism, depression comingfrom skilled nursing after having dizziness starting on 03/13 was unable to get out of her chair.?? At that time patient was unable to elaborate on her symptoms but does not appear that she had any focal ne urological deficits aside from potential right shoulder weakness per EMS..?? Patient was AO x 3 at that time and did have bilateral exotropia but no diplopia.?? Room spinning dizziness has been intermittent since this morning.?? NIHSS score was 0. Neuro evaluated pt and recommended MRI for stroke rule out. ?? Stroke Vasculitis Cognitive delay Hypothyroidism ?? CT head acute stroke showed no acute intracranial pathology.?? Severe low- density white matter changes noted however.?? CT angio neck no large vessel occlusion and arteries of the head and neck.?? Nonspecific diffuse luminal irregularities and scattered mild to moderate stenosis affecting bilateralA2-A3 FRANCISCO JAVIER's, M2 MCA's left proximal P2 CAGE UNLOADER suggestive of underlying vasculopathy.?? Soft tissue asymmetry in the larynx possible artifact but lesion cannot be excluded with recommendation for outpatient CT neck follow-up. inflammatory markers were low making vasculitis less likely a1c WNL ?? MRI brain L thalamic stroke - ECHO did not report a thrombus - Continue atorvastatin - BP meds started: losartan 25 mg po daily, hydralazine 25 mg po tid. Continue home atenolol as well - outpatient goals LDL between 40 &70, A1C <7%, and BP <120/80 -continue clopidogrel 75 mg daily given asa allergy -TSH with reflex T4 ordered WNL will restart home levo ?? Soft tissue asymmetry in the larynx Soft tissue asymmetry in the larynx noted on ct. artifact, may need outpatient f/u ?? Plan Outpatient follow-up CT ?? GERD continue famotidine ? Vital Signs?? Temperature: 97.8 DegF (03/16/25 10:09:00) Temperature Route: Oral (03/16/25 10:09:00) Pulse Rate: 67 bpm (03/16/25 10:09:00) Respiratory Rate: 16 br/min (03/16/25 10:09:00) Systolic Blood Pressure: 130 mm Hg (03/16/25 10:09:00) Diastolic Blood Pressure: 73 mm Hg (03/16/25 10:09:00) Blood pressure sites: Arm, right (03/16/25 10:09:00) Mean Arterial Pressure: 92 mm Hg (03/16/25 10:09:00) Pulse Pressure: 57 mm Hg (03/16/25 10:09:00) Oxygen Saturation: 98 % (03/16/25 10:09:00) Mode of Delivery (Oxygen): Room air (03/16/25 10:09:00) Early Warning Score: 3 (03/16/25 10:12:13) ? Mobility & Ambulation Level Mobility & Ambulation Level No qualifying data available. ?? Therapeutic Activity Therapeutic Activities/Mobility/Balance Comments on treatment indicated: Pt demonstarted safe functional mobility. Pt appears to be at/close to baseline. Rec home pT (03/14/25 10:45:00) Treatment Indicated-PT: No (03/14/25 10:45:00) Discharge recommendations: Home with services (03/14/25 10:45:00) Complete Rehab Discharge Index Now: No (03/14/25 10:45:00) Plan Discussed w/Pt,Family/Agreed Upon: Yes (03/14/25 10:45:00) Plan discussed with care team PT: RN, account manager b2b (03/14/25 10:45:00) Rehab potential: Good (03/14/25 10:45:00) ?? . Physical Exam Constitutional: Alert, in no distress. Head: Normocephalic. Eyes: Pupils are equal, round and reactive to light. Extraocular muscles intact. Ear, Nose and Throat: Oropharynx clear, mucous membranes moist. Ears and nose without masses, lesions or deformities. Trachea midline. Neck: Supple, Full range of motion. Respiratory: Clear to auscultation. No wheezing, rales or rhonchi. Cardiovascular: S1 S2 regular. No murmurs, rubs or gallops. Gastrointestinal: Abdomen soft, non-tender, non-distended. Normal bowel sounds. No pulsatile mass. No hepatosplenomegaly. Genitourinary: No costovertebral angle tenderness. Neurologic: Cranial nerves II-XII grossly intact. No focal neurological deficits. Flexor plantar response. Moves all extremities spontaneously. Sensation intact bilaterally. Skin: No rashes or lesions. No petechiae or purpura.?? Musculoskeletal: No cyanosis or clubbing. No gross deformities. Normal range of motion. Heme/Lymphatics/Immun: Palpation of neck reveals no swelling or tenderness of neck nodes. Palpationof groin reveals no swelling or tenderness of groin nodes. Psychiatric: Normal mood and affect Consultants Neurology Follow-Up Appointments Added Follow Up ?Time Frame ?Comments Rosi CORRAL, [facility] Patient Instructions NEUROLOGY HAS ORDERED A HEART MONITOR FOR YOU SCHEDULING WILL CALL TO SCHEDULING OR PLEASE CALL [phone] Please take all medications as noted in your discharge summary Home Health Face to Face ^HomeHealthFTF Results Discharge Labs BLOOD BANK Blood Type O Positive ()?? 03/13/2025 08:07 Antibody Screen Negative ()?? 03/13/2025 08:07 ?? BLOOD COUNT & DIFF WBC 10.7 k/mm3 ()?? 03/15/2025 08:48 RBC 4.92 m/mm3 ()?? 03/15/2025 08:48 Hgb 14.0 Gm/dL ()?? 03/15/2025 08:48 Hct 43.1 % ()?? 03/15/2025 08:48 MCV 87.6 femtoliters ()?? 03/15/2025 08:48 MCH 28.5 pg ()?? 03/15/2025 08:48 MCHC 32.5 Gm/dL (Low)?? 03/15/2025 08:48 Platelet Count 267 k/mm3 ()?? 03/15/2025 08:48 RDW-SD 39.7 femtoliters ()?? 03/15/2025 08:48 MPV 9.9 femtoliters ()?? 03/15/2025 08:48 Nucleated RBC (Automated) 0.0 #/100 WBC'S ()?? 03/15/2025 08:48 Abs. NRBC 0.0 k/mm3 ()?? 03/15/2025 08:48 Abs. Neut 8.1 k/mm3 (High)?? 03/15/2025 08:48 Abs. Lymph 1.3 k/mm3 ()?? 03/15/2025 08:48 Abs. [place] 0.8 k/mm3 ()?? 03/15/2025 08:48 Abs. Eo 0.4 k/mm3 ()?? 03/15/2025 08:48 Abs. Baso 0.1 k/mm3 ()?? 03/15/2025 08:48 Neut % 75.7 % ()?? 03/15/2025 08:48 Lymph % 12.2 % (Low)?? 03/15/2025 08:48 Roane % 7.6 % ()?? 03/15/2025 08:48 Eos % 3.4 % ()?? 03/15/2025 08:48 Baso % 0.7 % ()?? 03/15/2025 08:48 Imm Gran 0.4 % ()?? 03/15/2025 08:48 Abs. Imm Gran 0.0 k/mm3 ()?? 03/15/2025 08:48 ?? CARDIAC Homocysteine, Plasma/Serum 20.3 ??mole/L (High)?? 03/16/2025 08:12 ? CHEM GENERAL Sodium 133 mmol/L ()?? 03/15/2025 08:48 Potassium 4.0 mmol/L ()?? 03/15/2025 08:48 Chloride 96 mmol/L (Low)?? 03/15/2025 08:48 Bicarbonate Level 24 mmol/L ()?? 03/15/2025 08:48 Anion Gap 13 mmol/L ()?? 03/15/2025 08:48 Glucose Level 140 mg/dL (High)?? 03/15/2025 08:48 Glucose, POC 112 mg/dL (High)?? 03/13/2025 08:08 Hemoglobin A1C (Monitoring) 5.1 % ()?? 03/13/2025 10:30 BUN 14 mg/dL ()?? 03/15/2025 08:48 Creatinine-Blood 0.97 mg/dL ()?? 03/15/2025 08:48 Estimated GFR Creatinine 62 ML/MIN/1.73 M2 ()?? 03/15/2025 08:48 Calcium 9.6 mg/dL ()?? 03/15/2025 08:48 AST (SGOT) 21 units/L ()?? 03/13/2025 10:30 C-Reactive Protein 0.5 mg/dL ()?? 03/13/2025 10:30 ?? COAG INR 1.1 ()?? 03/13/2025 10:30 Protime (PT) 11.2 seconds ()?? 03/13/2025 10:30 APTT 25.9 seconds ()?? 03/13/2025 10:30 ? ENDOCRINE/TUMOR MARKER TSH 1.40 uIU/mL ()?? 03/13/2025 10:30 ? HEME OTHER Sed Rate 19 mm/hr ()?? 03/13/2025 10:30 Hold Lavender Top SPECIMEN DISCARDED AFTER 24 HOURS. ()?? 03/16/2025 08:12 ?? LIPID STUDIES Cholesterol 189 mg/dL ()?? 03/13/2025 10:30 Triglycerides 67 mg/dL ()?? 03/13/2025 10:30 HDL Cholesterol 76 mg/dL ()?? 03/13/2025 10:30 LDL Cholesterol 100 mg/dL ()?? 03/13/2025 10:30 Non HDL Cholesterol 113 mg/dL ()?? 03/13/2025 10:30 ? MISC. CHEMISTRY Hold Green Top SPECIMEN DISCARDED AFTER 1 WEEK ()?? 03/16/2025 08:12 ? SEROLOGY INF DISEASE C. Difficile Toxin by PCR NEGATIVE ()?? 03/14/2025 08:23 ? STOOL STUDIES GI PCR, Campylobacter NEGATIVE ()?? 03/14/2025 08:23 GI PCR, Plesiomonas shigelloides NEGATIVE ()?? 03/14/2025 08:23 GI PCR, Salmonella NEGATIVE ()?? 03/14/2025 08:23 GI PCR, Vibrio NEGATIVE ()?? 03/14/2025 08:23 GI PCR, Vibrio cholerae NEGATIVE ()?? 03/14/2025 08:23 GI PCR, Yersinia enterocolitica NEGATIVE ()?? 03/14/2025 08:23 GI PCR, Enteroaggregative E coli NEGATIVE ()?? 03/14/2025 08:23 GI PCR, Enteropathogenic E coli NEGATIVE ()?? 03/14/2025 08:23 GI PCR, Enterotoxigenic E coli NEGATIVE ()?? 03/14/2025 08:23 GI PCR, Wmbfy-ghqun-loguofogp E coli NEGATIVE ()?? 03/14/2025 08:23 GI PCR, Shigella/Enteroinvasive E coli NEGATIVE ()?? 03/14/2025 08:23 GI PCR, Cryptosporidium NEGATIVE ()?? 03/14/2025 08:23 GI PCR, Cyclospora cayetanensis NEGATIVE ()?? 03/14/2025 08:23 GI PCR, Entamoeba histolytica NEGATIVE ()?? 03/14/2025 08:23 GI PCR, Giardia lamblia NEGATIVE ()?? 03/14/2025 08:23 GI PCR, Adenovirus F 40/41 NEGATIVE ()?? 03/14/2025 08:23 GI PCR, Astrovirus NEGATIVE ()?? 03/14/2025 08:23 GI PCR, Norovirus GI/GII NEGATIVE ()?? 03/14/2025 08:23 GI PCR, Rotavirus A NEGATIVE ()?? 03/14/2025 08:23 GI PCR, Sapovirus NEGATIVE ()?? 03/14/2025 08:23 ?? UA/URINALYSIS Appear/Color, Urine COLORLESS ()?? 03/13/2025 10:36 Specific Riggins, Urine 1.030 ()?? 03/13/2025 10:36 pH, Urine 6.5 ()?? 03/13/2025 10:36 Albumin, Urine NEGATIVE ()?? 03/13/2025 10:36 Glucose, Urine NEGATIVE ()?? 03/13/2025 10:36 Ketones, Urine NEGATIVE ()?? 03/13/2025 10:36 Bilirubin, Urine NEGATIVE ()?? 03/13/2025 10:36 Hemoglobin, Urine NEGATIVE ()?? 03/13/2025 10:36 Nitrite, Urine NEGATIVE ()?? 03/13/2025 10:36 Leukocyte, Urine NEGATIVE ()?? 03/13/2025 10:36 Urobilinogen NORMAL mg/dL ()?? 03/13/2025 10:36 WBC's, Urine 3 /HPF ()?? 03/13/2025 10:36 RBC's, Urine <1 /HPF () 03/13/2025 10:36 Hold Urine Culture Testing available 48 hours from time of collection. ()?? 03/13/2025 10:36 ? Microbiology ?? GI Profile, Stool, PCR?? Completed?? Source: Stool Body Site: ?? Collected Dt/Tm: 03/14/2025 08:25 Last Updated Dt/Tm: 03/14/2025 10:59 ?? C.diff PCR, w Rfx Toxin/Ag?? Completed?? Source: Stool Body Site: ?? Collected Dt/Tm: 03/14/2025 08:23 Last Updated Dt/Tm: 03/14/2025 12:02 ? 40??minutes spent on discharge * Rani Singh RN: PERFORM Event Display: Patient Education/Instruction Authored Date: [id number] Inpatient Adult Discharge Instructions. [address] [id number] Name: YING MARCANO : 1955?? Visit: 03/15/2025 13:52?? Current Date: 03/16/2025 13:04 ?? Account: [id number]?? Inpatient Adult Discharge Instructions We would like to thank you for allowing us to assist you with your healthcare needs. The following includes patient education materials and information regarding your injury/illness. Our entire staffstrives to provide an excellent experience for our patients and their families. PLEASE ENSURE YOU FOLLOW-UP PER THE INSTRUCTIONS BELOW! ?? YOUR OPINION IS IMPORTANT TO US! Please complete the survey you may receive by mail or email. Your feedback will be used to make improvements to the healthcare experiences of our patients and their families. Surveys are administered by [employer] ?? If further treatment with your primary care physician or another doctor is recommended, it is important for you to keep the appointment. Call your primary care physician or return to the Emergency Department immediately if your condition worsens, fails to improve, or new symptoms develop. If you need to find a doctor, you can call [facility] [employer] for a referral at [phone] or toll free at [phone] or log in to [email or web address].. ?? [facility], in keeping with [facility] guidance, no longer requires face masks for staff, patientsor visitors in most situations. Similiar to time spent indoors at other locations, there is the chance that you were exposed to repiratory viruses during your time with us (such as flu or COVID-19). If you develop symptoms concerning for a viral respiratory infection, please seek testing (and treatment if indicated) from your medical provider or home test kit. ?? You can view and manage your care through the patient portal or by using a health care ginny of your choosing. [employer] is a website that allows you to securely view your medical information including your hospital discharge summary, office visit summaries, medications and follow-up visits. You can also request appointments, renew medications, and request access to your medical information using a health care ginny of your choosing, or just ask a question. You are entitled to know the individuals who participated in your treatment. This information is available within your medical record and will be provided upon your request. You can enroll at [email or web address] or register d uring your next office visit. You have been discharged from [facility], Patient Care Unit: D3B??. If you have any questions regarding these instructions, including results of studies pending, afteryou leave, please call us and we will be happy to assist you 12/02. [facility] Your Care Team Attending Physician Hazel CORRAL, Bill?? Consulting Providers Bill Oliva MD?? Discharging Providers Bill Oliva MD Reason for Your Visit from skilled nursing. 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 PMH of intueectual disability?? Your Diagnosis Anemia Chronic GERD Cognitive developmental delay Depression Hypothyroidism Vasculitis Tests Performed Below is a partial list of the tests performed during your hospitalization. You may have had other tests and procedures not included in this list. Please discuss all test results with your provider. AST Basic Metabolic Panel BUN C-REACTIVE PROTEIN C. DIFFICILE TOXIN PCR CBC CBC w/ Differential Creatinine Electrolytes GI Profile, Stool, PCR Glucose Level GLUCOSE POC HEMOGLOBIN A1C HOLD GREEN TUBE HOLD LAVENDER TUBE Homocysteine Level LIPID PANEL PT (INR) PTT SEDIMENTATION RATE,AUTOMATED TSH WITH REFLEX TO FT4 Type and Screen Urinalysis w/hold for Urine Culture Brain MRI W+W/O Contrast CT Angio Head Hyperacute Stroke CT Angio Neck Hyperacute Stroke CT Head-Hyper Acute Stroke CXR XR KUB or Abdomen AST?? Add On Lab Order?? BUN?? Basic Metabolic Panel?? C Reactive Protein (C-REACTIVE PROTEIN)?? C.diff PCR, w Rfx Toxin/Ag (C. DIFFICILE TOXIN PCR)?? CBC?? CBC w/ Differential?? CT Angio Head Hyperacute Stroke?? CT Angio Neck Hyperacute Stroke?? CT Head-Hyper Acute Stroke?? Creatinine?? Electrolytes?? GI Profile, Stool, PCR?? Glucose Level?? Glucose POC?? Hemoglobin A1C (Monitoring) (HEMOGLOBIN A1C)?? Hold Green Top Tube (HOLD GREEN TUBE)?? Hold Lavender Top Tube (HOLD LAVENDER TUBE)?? Homocysteine Level?? INR (PT (INR))?? Lipid Panel?? MRI Brain W+W/O Contrast (Brain MRI W+W/O Contrast)?? PTT?? Sedimentation Rate (SEDIMENTATION RATE,AUTOMATED)?? TSH with T4 Reflex (Adults Only) (TSH WITH REFLEX TO FT4)?? Type and Screen?? Urinalysis w/hold for Urine Culture?? XR Abdomen AP (XR KUB or Abdomen)?? Chest 2 Views Frontal and Lat (CXR)?? Primary Care Provider Froy Mansfield MD?? Advance Directive Health Care Proxy on File No Patient refuses to discuss Discharge Vitals Temperature: 97.8 DegF Weight: 48.2 kg Pulse Rate: 67 bpm ?? Respiratory Rate: 16 br/min ?? Systolic Blood Pressure: 130 mm Hg ?? Diastolic Blood Pressure: 73 mm Hg ?? Oxygen Saturation: 98 % ?? Studies Pending All studies ordered during this hospital stay have been completed unless listed below. Please discuss all pending results with your provider listed above in these instructions. ?? Add On Lab Order?? What to do next Instructions From Your Doctor NEUROLOGY HAS ORDERED A HEART MONITOR FOR YOU SCHEDULING WILL CALL TO SCHEDULING OR PLEASE CALL [phone] Please take all medications as noted in your discharge summary ?? Orders? 03/16/25 12:34:00 EDT?? Prescriptions??, ??03/16/25 12:34:00 EDT?? Scheduled Follow-Up Appointments Sunday 4:00 PM EDT ?? With: Venita Aranda MD Where: [facility] [address] [place] [address], [address] [place] [id number]- Status: Pending You Need to Schedule the Following Appointments Follow Up with??Venita Aranda MD Where: [address] [place] [address], 3rd [facility], [address] [place] [phone]- Discharge Medications YING MARCANO :1955 Visit Date:03/15/2025 Medications: Please continue your medications until treatment is completed or stopped by your provider. Medications not listed below should be discontinued. Discuss any questions related to medications with your provider. What How Much When Instructions Next Dose New Atorvastatin (atorvastatin 80 mg oral tablet) 80 Milligram Oral Daily at Bedtime Duration: 30 Days Pickup at [facility]03/16 PM New Clopidogrel (clopidogrel 75 mg oral tablet) 75 Milligram Oral Daily Pickup at [facility]03/17 New hydrALAZINE (hydrALAZINE 25 mg oral tablet) 25 Milligram Oral 3 times a day Pickup at [facility]03/16 @3PM ?? (9am,3pm,9pm) New Losartan (losartan 25 mg oral tablet) 25 Milligram Oral Daily Pickup at [facility]03/17 Unchanged Acetaminophen 650 Milligram Oral Every 6 hours as needed for as needed RAZA,PAIN/FEVER as needed Unchanged Atenolol (atenolol 25 mg oral tablet) 1 tab(s) Oral Twice a day 03/16 PM Unchanged Cholecalciferol (cholecalciferol 1000 intl units oral tablet) 1 tab(s) Oral Daily 03/17 Unchanged Famotidine (famotidine 40 mg oral tablet) 1 tab(s) Oral Daily at Bedtime 03/17 Unchanged Ferrous Sulfate (ferrous sulfate 325 mg oral tablet) 1 tab(s) Oral Daily in the morning 03/17 Unchanged Fluvoxamine (fluvoxaMINE 100 mg oral tablet) 1 tab(s) Oral Daily at Bedtime 03/16 PM Unchanged Fluvoxamine (fluvoxaMINE 50 mg oral tablet) 1 tab(s) Oral Daily at Bedtime 03/16 PM Unchanged Guaifenesin/ Dextromethorphan (Tussin DM 20 mg-200 mg/ 10 mL oral liquid) 10 Milliliter Oral Every 4 hours as needed for as needed for cough not to exceed 6 doses/ day ?? as needed Unchanged Lactase (Lactaid Ultra 9000 units oral tablet) 1 tab(s) Oral Every 6 hours as needed for as needed as needed Unchanged Levothyroxine (levothyroxine 0.1 mg oral tablet) 1 tab(s) Oral Daily Duration: 30 Days 03/17 Unchanged Loperamide (loperamide 2 mg oral tablet) 1 tab(s) Oral Every 6 hours as needed for Loose Stool as needed Unchanged Metoclopramide (metoclopramide 5 mg oral tablet) 1 tab(s) Oral Twice a day 03/16 PM Unchanged Multivitamin With Minerals (Multiple Vitamins with Minerals oral kit) 1 tab(s) Oral Daily in the morning 03/17 Pharmacy Information [facility]: [address] [id number] [phone] Prescription Given During Visit Atorvastatin (atorvastatin 80 mg oral tablet) - 80 mg, By Mouth, Daily at bedtime, # 30 tablet, 0 Refills, [facility], [address] [address] [phone]?? Clopidogrel (clopidogrel 75 mg oral tablet) - 75 mg, By Mouth, Daily, # 30 tablet, 0 Refills, [facility], [place] [address] [phone]?? Losartan (losartan 25 mg oral tablet) - 25 mg, By Mouth, Daily, # 30 tablet, 0 Refills, [facility], [place] [address] [phone]?? hydrALAZINE (hydrALAZINE 25 mg oral tablet) - 25 mg, By Mouth, 3 times a day, # 30 tablet, 0 Refills, [facility], [place] [address] [phone]?? Laboratory Results Below is a partial list of the most recent Laboratory test results done prior to this discharge. You may have had other tests and procedures not included in this list. Please discuss all test resultswith your provider. AST (03/13/2025) ???AST (SGOT) - 21 units/L Basic Metabolic Panel (03/15/2025) ???Sodium - 133 mmol/L???Potassium - 4.0 mmol/L???Chloride - 96 mmol/L???Bicarbonate Level - 24 mmol/L???Anion Gap - 13 mmol/L???Glucose Level - 140 mg/dL???BUN - 14 mg/dL???Creatinine-Blood - 0.97 mg/dL???Estimated GFR Creatinine - 62 ML/MIN/1.73 M2???Calcium - 9.6 mg/dL BUN (03/13/2025) ???BUN - 12 mg/dL C-REACTIVE PROTEIN (03/13/2025) ???C-Reactive Protein - 0.5 mg/dL C. DIFFICILE TOXIN PCR (03/14/2025) ???C. Difficile Toxin by PCR - NEGATIVE CBC (03/13/2025) ???WBC - 8.8 k/mm3???RBC - 4.73 m/mm3???Hgb - 13.6 Gm/dL???Hct - 41.5 %???MCV - 87.7 femtoliters???MCH - 28.8 pg???MCHC - 32.8 Gm/dL???Platelet Count - 245 k/mm3???RDW-SD - 39.8 femtoliters???MPV - 10.2 femtoliters???Nucleated RBC (Automated) - 0.0 #/100 WBC'S???Abs. NRBC - 0.0 k/mm3 CBC w/ Differential (03/15/2025) ???WBC - 10.7 k/mm3???RBC - 4.92 m/mm3???Hgb - 14.0 Gm/dL???Hct - 43.1 %???MCV - 87.6 femtoliters???MCH - 28.5 pg???MCHC - 32.5 Gm/dL???Platelet Count - 267 k/mm3???RDW-SD - 39.7 femtoliters???MPV - 9.9 femtoliters???Nucleated RBC (Automated) - 0.0 #/100 WBC'S???Abs. NRBC - 0.0 k/mm3???Abs. Neut - 8.1 k/mm3???Abs. Lymph - 1.3 k/mm3???Abs. Roane - 0.8 k/mm3???Abs. Eo - 0.4 k/mm3???Abs. Baso - 0.1 k/mm3???Neut % - 75.7 %???Lymph % - 12.2 %???Roane % - 7.6 %???Eos % - 3.4 %???Baso % - 0.7 %???Imm Gran - 0.4 %???Abs. Imm Gran - 0.0 k/mm3 Creatinine (03/13/2025) ???Creatinine-Blood - 0.90 mg/dL???Estimated GFR Creatinine - 68 ML/MIN/1.73 M2 Electrolytes (03/13/2025) ???Sodium - 136 mmol/L???Potassium - 4.0 mmol/L???Chloride - 98 mmol/L???Bicarbonate Level - 26 mmol/L???Anion Gap - 12 mmol/L GI Profile, Stool, PCR (03/14/2025) ???GI PCR, Campylobacter - NEGATIVE???GI PCR, Plesiomonas shigelloides - NEGATIVE???GI PCR, Salmonella - NEGATIVE???GI PCR, Vibrio - NEGATIVE???GI PCR, Vibrio cholerae - NEGATIVE???GI PCR, Yersinia enterocolitica - NEGATIVE???GI PCR, Enteroaggregative E coli - NEGATIVE???GI PCR, Enteropathogenic E coli - NEGATIVE???GI PCR, Enterotoxigenic E coli - NEGATIVE???GI PCR, Bsqws-aiujy-nyjqeuhlh E coli -NEGATIVE???GI PCR, Shigella/Enteroinvasive E coli - NEGATIVE???GI PCR, Cryptosporidium - NEGATIVE???GI PCR, Cyclospora cayetanensis - NEGATIVE???GI PCR, Entamoeba histolytica - NEGATIVE???GI PCR, Giardia lamblia - NEGATIVE???GI PCR, Adenovirus F 40/41 - NEGATIVE???GI PCR, Astrovirus - NEGATIVE???GIPCR, Norovirus GI/GII - NEGATIVE???GI PCR, Rotavirus A - NEGATIVE???GI PCR, Sapovirus - NEGATIVE Glucose Level (03/13/2025) ???Glucose Level - 110 mg/dL GLUCOSE POC (03/13/2025) ???Glucose, POC - 112 mg/dL HEMOGLOBIN A1C (03/13/2025) ???Hemoglobin A1C (Monitoring) - 5.1 % HOLD GREEN TUBE (03/16/2025) ???Hold Green Top - SPECIMEN DISCARDED AFTER 1 WEEK HOLD LAVENDER TUBE (03/16/2025) ???Hold Lavender Top - SPECIMEN DISCARDED AFTER 24 HOURS. Homocysteine Level (03/16/2025) ???Homocysteine, Plasma/Serum - 20.3 ??mole/L LIPID PANEL (03/13/2025) ???Cholesterol - 189 mg/dL???Triglycerides - 67 mg/dL???HDL Cholesterol - 76 mg/dL???LDL Cholesterol - 100 mg/dL???Non HDL Cholesterol - 113 mg/dL PT (INR) (03/13/2025) ???INR - 1.1???Protime (PT) - 11.2 seconds PTT (03/13/2025) ???APTT - 25.9 seconds SEDIMENTATION RATE,AUTOMATED (03/13/2025) ???Sed Rate - 19 mm/hr TSH WITH REFLEX TO FT4 (03/13/2025) ???TSH - 1.40 uIU/mL Type and Screen (03/13/2025) ???Blood Type - O Positive???Antibody Screen - Negative Urinalysis w/hold for Urine Culture (03/13/2025) ???Appear/Color, Urine - COLORLESS???Specific Riggins, Urine - 1.030???pH, Urine - 6.5???Albumin, Urine - NEGATIVE???Glucose, Urine - NEGATIVE???Ketones, Urine - NEGATIVE???Bilirubin, Urine - NEGATIVE???Hemoglobin, Urine - NEGATIVE???Nitrite, Urine - NEGATIVE???Leukocyte, Urine - NEGATIVE???Urobilin ogen - NORMAL WBC's, Urine - 3 /HPF RBC's, Urine - <1 /HPF Hold Urine Culture - Testing available 48 hours from time of collection. You will be contacted within 72 hours with your results. Allergies (NKA means No Known Allergies) Lactose Motrin Rocephin aspirin Problems Active Problems??(4) Cognitive developmental delay?? Depression?? Hypothyroidism?? Kidney disease?? Education Materials Below is the list of Educational Leaflet Providered with your Discharge Instructions. Valuables and Belongings I fully understand and agree that [facility] accepts no responsibility for all my personal property including clothing, toilet articles, radios, jewelry, dentures, hearing aids, rings, money, or any other property that is in my possession or is brought to me after admission. I understand certain valuables may be placed in a hospital safe for a short period of time. I understand that the hospital is not liable for loss or damage due to accident, fire, or other natural occurrence while said property is in the safe. I accept full responsibility for any personal property that I keep with me, and will not hold the hospital responsible in case of loss or disappearance. I acknowledge that i have been encouraged to send valuables and belongings home. ?? No Valuables/Belongings: No valuables/belongings present Date for Pt to Sign Valuables/Belongings: 03/13/25 13:16:00 ?? Other Discharge Information ? Pulmonary Rehab Status?? Pulmonary Rehab Discharge Status?? Respiratory Rate: 16 br/min ? Common Emergency Awareness Tips IS IT A STROKE? Act FAST and Check for these signs: FACE Does the face look uneven? ARM Does one arm drift down? SPEECH Does their speech sound strange? TIME Call at any sign of stroke ?? Heart Attack Signs Chest discomfort: Most heart attacks involve discomfort in the center of the chest and lasts more than a few minutes, or goes away and comes back. It can feel like uncomfortable pressure, squeezing, fullness or pain. Discomfort in upper body: Symptoms can include pain or discomfort in one or both arms, back, neck, jaw or stomach. Shortness of breath: With or without discomfort. Other signs: Breaking out in a cold sweat, nausea, or lightheaded. Remember, MINUTES DO MATTER. If you experience any of these heart attack warning signs, call to get immediate medical attention! ?? Smoking can increase your chances of developing chronic health problems and can cause harmful effects to other family members in your house. If you smoke, you are strongly encouraged to quit. Please call [facility] [facility] at [phone] or [phone] ([phone]) or log in to [email or web address] for referrals to smoking cessation programs. ?? 972 Suicide & Crisis Lifeline is available 12/02 if you or someone you know needs to find a reason to keep living. By calling 736 you'll be connected to a skilled, trained counselor at a crisis center in your area. INPATIENT DISCHARGE INSTRUCTIONS SIGNATURE PAGE YING MARCANO Location:[facility] Registration Date and Time:03/15/2025 13:52 EDT Primary Care Physician: Donal CORRAL, Froy Willams Attending Physician: Hazel CORRAL, Sarwatnoreen, I YING MARCANO, have received the above patient education materials/instructions and have verbalized understanding. If ambulance or transport services are being used I further acknowledge being given a choice of service. ?? If you need to contact me, please call me at this number: . Patient/Pillow Filler Name: Patient/Pillow Filler Signature: Relationship to Patient: Witness Name/Signature: Date: Patient Care team information Care Team Personnel Name: Gloria Judge RN Position: [facility] RN Member Role: Primary Care Nurse Name: Yessi Andrews RN Position: [facility] RN Member Role: Primary Care Nurse Name: Apple Zepeda RN Position: [facility] ED RN W/OE and Tasks Member Role: Primary Care Nurse Name: Christiane Teran RN Position: [facility] RN Member Role: Primary Care Nurse Name: Froy Mansfield MD Position: Reference Physician Member Role: PCP Name: Madyson Casarez RN Position: [facility] RN Member Role: Primary Care Nurse Name: Falguni Thompson RN Position: [facility] RN Member Role: Primary Care Nurse Name: Ottoniel Connelly Position: [facility] RN Member Role: Primary Care Nurse Name: Madelaine Mclaughlin NP Position: Reference Physician Member Role: Primary Care Nurse Address: [address] [place] [phone]- Telecom: Name: Katia Ríos RN Position: [facility] RN Member Role: Primary Care Nurse Name: Jacque Welch RN Position: [facility] RN Member Role: Primary Care Nurse Name: Beth De La Cruz CNM Position: [facility] Home Appliance Installer Member Role: Primary Care Nurse Address: [address] [place] [phone]- Telecom: Name: Allyson Molina RN Position: S RN Member Role: Primary Care Nurse Name: Mayra Cerna RN Position: S RN Member Role: Primary Care Nurse Name: Cathy Koenig RN Position: S [place] RN Member Role: Primary Care Nurse Care Team Related Persons Name: MARIMAR GILBERT Name: POOLE, BILL Name: UNKNOWN, [place] Insurance Providers Guarantor name: BRODY Health Plan Information #: 1 Payer: MEDICARE A INPT 25 Payer Identifier: Member Number: [id number] Group Number: Subscriber Identifier: [id number] Relationship to Subscriber: self Coverage Type: MEDICARE Coverage Verification Date: Telecom: Address: [facility] Information #: 2 Payer: [employer] Payer Identifier: Member Number: [id number] Group Number: Subscriber Identifier: [id number] Relationship to Subscriber: self Coverage Type: MEDICAID Coverage Verification Date: Telecom: Address:
--- NOTE | 2025-03-19 08:09 | A.OFFPC_ITS ---
Vital Signs 03/19/25 08:16 Height 4 ft 10 in Weight 113 lb BMI 23.6 BP 110/56 L Blood Pressure Location Lt brachial Position Sitting Respiration 16 Pulse 73 Pulse Source Pulse Oximeter Temp 97.5 F Temp Source Temporal Artery Scan Pulse Oximetry (%) 98 Oxygen Delivery Method Room Air Intake Visit Reasons: S/P [facility] ED, dx stroke, see comments Software Engineer Required: No Accompanied by: residential rn home care-[facility] Allergies ibuprofen (From MOTRIN) Allergy (Severe, Verified 03/19/25 08:09) GI BLEED aspirin (ASA) Allergy (Intermediate, Verified 03/19/25 08:09) GI BLEED lactose (LACTOSE) Allergy (Intermediate, Verified 03/19/25 08:09) DIARRHEA Tobacco use date assessed: 03/19/25 Fall risk assessment: 1 Fall in past year HPI HPI Comments History of Present Illness Details The patient is a 70-year-old female presenting with a history of a left thalamic stroke. The stroke occurred recently, leading to hospitalization at [facility] for a weekend, from Sunday to Sunday morning. The patient does not recall the hospitalization, indicating memory issues and cognitive impairment post-stroke. Upon returning home, she experienced residual weakness and dizziness, but her condition has improved, and she has resumed her regular activities with minor assistance needed for meals and medications. The patient reports a decline in appetite but manages to consume soft foods. Occasional diarrhea and a lack of significant constipation are noted. She denies any incidents of chest pain, shortness of breath, or new joint or leg pain. While her cognitive function appears impaired, she remains physically functional, performing chores independently. It's currently unclear when symptoms began to improve, but she is described as being at her baseline now. Medical History: - Left thalamic stroke - Hypertension - Hypercholesterolemia - Cognitive impairment - Depression - Hypothyroidism Surgical History: - Colonoscopy (last in 2014) - Cholecystectomy Medications: - Atorvastatin for hypercholesterolemia - Plavix (Clopidogrel) for stroke preven tion - Levo thyroxine for hypothyroidism - Antidepressants for depression Social: - Previously smoked for 20 years at appr oximately one pack per day; quit a long time ago. - Lives with minimal assistance, perform ing daily chores independently. - Consumes soft foods; reports overall l ower appetite. - Baseline cognitive function impacts da alej[facility] living; requires monitoring. [facility]LY [facility], [facility] Medical History (Updated 03/19/25 @ 08:43 by Ori Meadows MD) Screening breast examination Tobacco use disorder Hypertension Left thalamic infarction Surgical History (Updated 03/17/25 @ 16:53 by Alina Lopez) History of colonoscopy (~12/21/14) Social History Housing: Assisted Living Facility Patient Tobacco Use Status: Never used Tobacco e-Cigarette/Vaping Use: Never Used Review of Systems Const Details: - Neurological: Reports cognitive impairment, denies headaches. - Gastrointestinal: Reports decreased appetite, occasional diarrhea, denies constipation, denies abdominal pain. - Respiratory: Denies shortness of breath. - Cardiovascular: Denies chest pain. - Musculoskeletal: Denies leg or joint pain. All systems reviewed & are unremarkable except as noted in HPI and below Physical exam (Primary Care) Vital Signs: Last Vital Signs Temp 97.5 F 03/19/25 08:16 Pulse 73 03/19/25 08:16 Resp 16 03/19/25 08:16 BP 110/56 L 03/19/25 08:16 Pulse Ox 98 03/19/25 08:16 Oxygen Delivery Method Room Air 03/19/25 08:16 BMI result Body Mass Index 23.6 Tobacco/Smoking Status: Tobacco use Status Tobacco use date assessed 03/19/25 03/19/25 08:19 Patient Tobacco Use Status Never used Tobacco 03/19/25 08:19 e-Cigarette/Vaping Use Never Used 03/19/25 08:19 Const Other: General: +Alert and oriented, Poorly nourished, No acute distress. Eye: Pupils are equal, round and reactive to light, Intact accommodation, Extraocular movements are intact, Normal conjunctiva, Vision unchanged. HENT: Normocephalic, Atraumatic, Tympanic membranes are clear, Poor hearing, Oral mucosa is moist, No pharyngeal erythema, Ear canals patent. Respiratory: Lungs CTA bilaterally, No wheeze, Respirations are non-labored. Cardiovascular: Regular rate, Regular rhythm, S1 auscultated, S2 auscultated, No murmur, Good pulses equal in all extremities, Normal peripheral perfusion, No edema. Gastrointestinal: Soft, Non-tender, Non-distended, Normal bowel sounds, No organomegaly. Musculoskeletal: Normal range of motion, Normal strength, No tenderness, No swelling, No deformity, Normal gait. Integumentary: Warm, Dry, [place], Intact. Neurologic: Alert, Oriented, Normal sensory, Normal motor function, No focal defects, Cranial Nerves II-XII are grossly intact, Normal deep tendon reflexes. Psychiatric: Cooperative, Appropriate mood & affect, Normal judgment. Coding Level of Care Code New Pt Level 4 (20032) New Pt Prev Care >65yr (39267) Diagnoses Left thalamic infarction I63.81 Hypertension I10 Tobacco use disorder F17.200 Screening breast examination Z12.39 Assessment & Plan Assessment & Plan (1) Left thalamic infarction: Comment: Recently admitted to [facility] with dizziness and found to have left dago lamic stroke on MRI imaging. Started on Plavix and statin during hospitalization. We will obtain lipid panel to evaluate and continue Plavix. Code(s): I63.81 - Other cerebral infarction due to occlusion or stenosis of small artery Category: Medical Plan: Continue Plavix and design continue atorvastatin 80 mg with LDL goal less than 70 Order lipid panel (2) Hypertension: Comment: Pressure is well controlled in clinic today at 110/56 with home blood pressure medications that atenolol 25 mg b.i.d., hydralazine 25 mg t.i.d., losartan 25 mg daily We will continue same medications for now and re-evaluate her medications need to be discontinued or decreased at next hospitalization/clinic visit Code(s): I10 - Essential (primary) hypertension Category: Medical Plan: Continue atenolol, hydralazine, losartan (3) Tobacco use disorder: Comment: Endorses a smoking history of over 20 pack years with more than a pack a day therefore we will obtain a lung cancer screening Code(s): F17.200 - Nicotine dependence, unspecified, uncomplicated Category: Medical Plan: Order LD CT of lung (4) Screening breast examination: Comment: Due for breast mammogram Code(s): Z12.39 - Encounter for other screening for malignant neoplasm of breast Category: Medical Plan: - Order mammogram 4. Cognitive Impairment - Monitor for changes; ensure safety in daily activities. 6. Depression - Continue current antidepressant therapy with monitoring for effectiveness. 7. Hypothyroidism - Continue Levo thyroxine 100mcg and recheck TSH levels. Plan I discussed with Nhung the importance of monitoring her cognitive function following her stroke, and the necessity to continue her medications including Plavix for stroke prevention and atorvastatin for cholesterol control. I emphasized the need for regular follow-ups to assess her cognitive and physical rehabilitation progress. Given her prior smoking history, we will proceed with lung cancer screening. All of the decisions made today will aid in her comp rehensive management post-stroke. Nhung and her guardians are informed of the importance of establishing power of immigration attorney and code status. She will be seen in three months to review her progress and follow-up on her health status. Orders: Orders Hemoglobin A1c Today F17.200 - Nicotine dependence, unspecified, uncomplicated, I10 - Essential (primary) hypertension, I63.81 - Other cerebral infarction due to occlusion or stenosis of small artery, Z12.39 - Encounter for other screening for malignant neoplasm of breast Vitamin D 25-OH Total Today F17.200 - Nicotine dependence, unspecified, uncomplicated, I10 - Essential (primary) hypertension, I63.81 - Other cerebral infarction due to occlusion or stenosis of small artery, Z12.39 - Encounter for other screening for malignant neoplasm of breast TSH reflex Free T4 Today F17.200 - Nicotine dependence, unspecified, uncomplicated, I10 - Essential (primary) hypertension, I63.81 - Other cerebral infarction due to occlusion or stenosis of small artery, Z12.39 - Encounter for other screening for malignant neoplasm of breast XR DEXA axial skeleton Today F17.200 - Nicotine dependence, unspecified, uncomplicated, I10 - Essential (primary) hypertension, I63.81 - Other cerebral infarction due to occlusion or stenosis of small artery, Z12.39 - Encounter for other screening for malignant neoplasm of breast CT lung screening Today F17.200 - Nicotine dependence, unspecified, uncomplicated, I10 - Essential (primary) hypertension, I63.81 - Other cerebral infarction due to occlusion or stenosis of small artery, Z12.39 - Encounter for other screening for malignant neoplasm of breast Comprehensive Met. Panel Today F17.200 - Nicotine dependence, unspecified, uncomplicated, I10 - Essential (primary) hypertension, I63.81 - Other cerebral infarction due to occlusion or stenosis of small artery, Z12.39 - Encounter for other screening for malignant neoplasm of breast Complete Blood Count Auto Diff Today F17.200 - Nicotine dependence, unspecified, uncomplicated, I10 - Essential (primary) hypertension, I63.81 - Other cerebral infarction due to occlusion or stenosis of small artery, Z12.39 - Encounter for other screening for malignant neoplasm of breast Lipid Panel Today F17.200 - Nicotine dependence, unspecified, uncomplicated, I10 - Essential (primary) hypertension, I63.81 - Other cerebral infarction due to occlusion or stenosis of small artery, Z12.39 - Encounter for other screening for malignant neoplasm of breast MM tomosynthesis screening BI Today F17.200 - Nicotine dependence, unspecified, uncomplicated, I10 - Essential (primary) hypertension, I63.81 - Other cerebral infarction due to occlusion or stenosis of small artery, Z12.39 - Encounter for other screening for malignant neoplasm of breast Patient Instructions: - Continue taking Plavix, atorvastatin, and your blood pressure medications every day. - Monitor for any changes in mood or memory and report these during follow-up visits. - Attend lung cancer screening as scheduled. - Ensure someone is assisting with medications and providing meals when needed. - Keep active every day to maintain your strength. - Follow up in three months or sooner if there are any changes in your health. - Make arrangements to finalize power of immigration attorney paperwork.
[2025-03-19 08:16] VITALS: BP 110/56; PULSE 73; RESP 16; TEMP 36.4; O2SAT 98; BMI 23.6
--- OUTSIDE RECORDS SUMMARY | 2025-03-19 08:34 | XMS_ITS | Patient Health Record ---
[facility] Organization [facility] Address [address] [place] [address] Care Team Providers Care Building Construction Superintendent Name Role Phone Donal CORRAL, Froy Primary Care Provider Unavailab Samuel Aviles Unavailable [phone] Allergies Allergen (clinical drug ingredient) Drug/Non Drug Allergy documented on EMR Reaction Allergy Type Onset Date Status ibuprofen Advil Unknown Drug Allergy Active Aleve Unknown Drug Allergy Active aspirin Aspirin Unknown Drug Allergy Active Lactose Unknown Drug Allergy Active Motrin Unknown Drug Allergy Active Rocephin Unknown Drug Allergy Active Reason For Referral No Information Medications Medication SIG (Take, Route, Frequency, Duration) Notes Start Date End Date Status Luvox CR Active Levothyroxine Sodium 100 MCG 1 tablet on an empty stomach in the morning Orally Once a day Active Lactase 9000 UNIT 1 tablet Orally Once a day Active Ketoconazole 2 % Externally Ac tive Ketoconazole 2 % 1 application to aff ected area Externally Once a day Active Imodium A-D 2 MG 1 tablet as needed O rally Four times a day Active Ferrous Sulfate 325 (65 Fe) MG 1 tablet Orally Once a day Active Vitamin D-3 1000 UNIT 1 capsule Orally O nce a day Active Famotidine 40 MG 1 tablet Orally Once a day Active Tylenol 325 mg 2 Oral Activ e cloNIDine HCl 0.1 MG 1 tablet at bedtime Orally Once a day Active Robitussin DM Active Atenolol 25 MG 1 tablet Orally Once a day Active Reglan 5 MG Orally Active Multi-Minerals - Orally Act kelsey Social History Tobacco Use: Social History Observation Description Date Details (start date - stop date) Former Smoker NA - NA Tobacco Use/Smoking Question Answer Notes Are you a: former smoker Additional Findings: Tobacco Non-User Current no n-smoker Alcohol Screen Question Answer Notes Did you have a drink containing alcohol in the p ast year? No Points 0 Interpretation Negative Tobacco use other than smoking: Question Answer Notes Are you an other tobacco user? No Problems Problem Type SNOMED Code ICD Code Onset Dates Problem Status W/U Status Risk Notes Problem Tinea unguium (555207837) Tinea unguium (B35.1) Active confirmed Plan Of Treatment Pending Test Test Name Order Date [id number] NAIL, 6 OR MORE 04/30/2018 Insurance Providers Payer Name Payer Address Payer Phone Subscriber Number Group Number Insured Name Patient Relationship to Insured Coverage Start Date Coverage End Date Medicare National [employer] S[employer] [address] [place] [address] [id number] Nhung Carpenter Self - patient is the insured 6 Medical (General) History Medical History History ICD Code Anxiety Diverticulosis Psychiatric disorder Reflux ( GERD) Psoriasis/eczema Cataracts Scoliosis Thyroid
--- OUTSIDE RECORDS SUMMARY | 2025-03-19 08:34 | XMS_ITS | Patient Health Record ---
Author Organization [facility] Address [address] [place] [address] Care Team Providers Care Potato Picker Name Role Phone Donal (RETIRED) Froy CORRAL Primary Care Provider Unavailable Zbigniew Ayers Unavailable [phone] Allergies Allergen (clinical drug ingredient) Drug/Non Drug Allergy documented on EMR Reaction Allergy Type Onset Date Status lactose intolerent (uncoded) Unknown Allergy Active aspirin Aspirin (uncoded) Unknown Allergy Ac tive Reason For Referral No Information Medications Medication SIG (Take, Route, Frequency, Duration) Notes Start Date End Date Status Multivitamin & Mineral Orally Active Levoxyl 100 MCG 1 tablet Orally Once a day Active Ferrous Sulfate 325 (65 Fe) MG 1 tablet Orally Once a day Active Tylenol 8 Hour 650 MG 1 tablet as needed Orally every 8 hrs Active Luvox CR 100 MG 1 capsule at bedtime Orally Once a day Active Famotidine 40 MG 1 tablet at bedtime Orally Once a day Active Imodium A-D 2 MG 1 tablet Orally 8 ti me(s) a day Active Lactase Enzyme Fast Acting 9000 UNIT 1 tablet Orally Once a day Active Sucralfate 1 GM TAKE 1 TAB BY MOUTH TWICE A DAY - BEFORE BREAKFAST AND SUPPER for 30 Active Vitamin D3 1000 UNIT 1 capsule Orally On ce a day Active Atenolol 25 MG 1 tablet Orally Once a day Active Problems Problem Type SNOMED Code ICD Code Onset Dates Problem Status W/U Status Risk Notes Problem [id number] Vomiting, nausea presence unspecified, unspecified intactability, vomiting of unspecified type (R11.10) Active confirmed Plan Of Treatment Pending Test Test Name Order Date XR GI SERIES 02/10/2016 XR GI SMALL BOWEL SERIES 02/10/2016 Future Test Test Name Order Date UPPER GI ENDOSCOPY DILATION OF GASTRIC O UTLET OBSTRUCTION 02/10/2016 Insurance Providers Payer Name Payer Address Payer Phone Subscriber Number Group Number Insured Name Patient Relationship to Insured Coverage Start Date Coverage End Date MEDICARE OF [place] [address] [place] [address] [id number] YING MARCANO Self - patient is the insured MEDICAID OF [facility] [address] [place] [address] [id number] YING MARCANO Self - patient is the insured Medical (General) History Medical History History ICD Code 12/16/1997 EGD--Billroth II anatomy, nor mal small bowel biopsies 12/17/1996 --Negative Colonoscopy to the splenic flexure and barium enema Denies [place],DM,CVA,Lung disease,renal dise ase Peptic ulcer disease--status post partial gastrectomy with Billroth II anastomosis Diverticulitis at the juncti on of the descending and sigmoid colon seen on CAT scan in February of 2014. hypothyroidism mild mental retardation hard of hearing Negative screening colonoscopy in 12/2014 Surgical History Surgery Date(Month/Year) Partial gastrectomy with a B-II anatomy [facility]
== END 2025-03-19 08:39 | disposition home or self-care (01) ==
LOC: HO.HMCHD 08:11
PROVIDERS: PCP Student in an Organized Health Care Education/Training Program; Visit Provider Student in an Organized Health Care Education/Training Program
DX: I63.81 Other cerebral infarction due to occlusion or stenosis of small artery (principal); I10 Essential (primary) hypertension; F17.200 Nicotine dependence, unspecified, uncomplicated; Z12.39 Encounter for other screening for malignant neoplasm of breast; Z00.00 Encounter for general adult medical examination without abnormal findings

== ENCOUNTER → 2025-03-19 08:10 | Outpatient (BNVA) | payer MEDICARE, MEDICAID, SELFPAY | PROVIDERS: PCP Family Medicine; Visit Provider Student in an Organized Health Care Education/Training Program | DX: Z12.39 Encounter for other screening for malignant neoplasm of breast (principal); I63.81 Other cerebral infarction due to occlusion or stenosis of small artery; I10 Essential (primary) hypertension; F17.200 Nicotine dependence, unspecified, uncomplicated | CPT/HCPCS: 99202 ==

== ENCOUNTER 2025-03-27 08:56 | Outpatient (REF) | payer MEDICARE, MEDICAID, SELFPAY ==
[2025-03-27 09:20] LABS: MANUAL DIFF FLAG NO
--- OUTSIDE RECORDS SUMMARY | 2025-03-27 09:40 | XMS_ITS | Patient Health Record ---
Author [facility] Address [address] [place] [address] Care Team Providers Care Political Reporter Name Role Phone Donal CORRAL, Froy Primary Care Provider Unavailab Samuel Aviles Unavailable [phone] Allergies Allergen (clinical drug ingredient) Drug/Non Drug [...] W/U Status Risk Notes Problem Tinea unguium ([id number]) Tinea unguium (B35.1) Active confirmed Plan Of Treatment Pending Test Test Name Order Date [id number] NAIL, 6 OR MORE 04/30/2018 Insurance Providers Payer Name Payer Address Payer Phone Subscriber Number Group Number Insured Name Patient Relationship to Insured Coverage Start Date Coverage End Date Medicare National Govt Sv[employer] [address] [place] [address] [id number] Nhung Carpenter Self - patient is the insured 6 Medical (General) History Medical History History ICD Code Anxiety Diverticulosis Psychiatric disorder Reflux ( GERD) Psoriasis/eczema Cataracts Scoliosis Thyroid
--- OUTSIDE RECORDS SUMMARY | 2025-03-27 09:40 | XMS_ITS | Patient Health Record ---
Author Organization [facility] Address [address] [place] [address] Care Team Providers Care Respiratory Therapist Name Role Phone Donal (RETIRED) Froy CORRAL Primary Care Provider Unavailable Zbigniew Ayers Unavailable [phone] Allergies Allergen (clinical drug ingredient) Drug/Non Drug [...] Problem Status W/U Status Risk Notes Problem [id number] Vomiting, nausea presence unspecified, unspecified intactability, vomiting [...] OF [place] [address] [place] [address] [id number] YING MARCANO Self - patient is the insured MEDICAID OF [facility] [address] [place] [address] [id number] YING MARCANO Self - patient is the insured Medical (General) History Medical History History ICD Code 12/16/1997 EGD--Billroth II anatomy, nor mal small bowel biopsies 12/17/1996 --Negative Colonoscopy to the splenic flexure and barium enema Denies [place],DM,CVA,Lung disease,renal dise ase Peptic ulcer disease--status post partial gastrectomy with Billroth II anastomosis Diverticulitis at the juncti on of the descending and sigmoid colon seen on CAT scan in February of 2014. hypothyroidism mild mental retardation hard of hearing Negative screening colonoscopy in 12/2014 Surgical History Surgery Date(Month/Year) Partial gastrectomy with a B-II anatomy [facility]
[2025-03-27 10:31] LABS: Hematocrit 37.8 % (37.0-47.0); Hemoglobin 12.5 g/dl (12.0-16.0); Imm Gran Abs Auto 0.06 X10*3/uL (0.00-0.03); Imm Gran Pct Auto 0.5 % (0.0-0.4); Lymphocytes Absolute Auto 1.6 X10*3/uL (1.2-4.9); Mean Corpuscular HGB Conc 33.1 g/dl (31.0-35.0); Mean Corpuscular Hemoglobin 28.3 pg (27.0-33.0); Mean Corpuscular Volume 85.7 fL (80.0-98.0); NRBC Abs Auto 0.000 X10*3/uL (0.0-0.012); NRBC Pct Auto 0.0 /100WBC (0.0-0.2); Platelet Count 332 X10*3/uL (160-400); Red Blood Count 4.41 X10*6/uL (4.20-5.50); White Blood Count 13.0 X10*3/uL (4.8-10.8)
[2025-03-27 10:55] LABS: Hemoglobin A1C 107.9408 umol/L; Total Hemoglobin (HGBA1C) 3293.9719 umol/L
[2025-03-27 11:24] LABS: Alanine Aminotransferase 56 U/L (0-31); Albumin Level 3.9 g/dL (3.5-5.0); Alkaline Phosphatase 98 U/L (39-117); Anion Gap 13 (12-20); Aspartate Amino Transferase 45 U/L (5-31); Blood Urea Nitrogen 16 mg/dL (9-16); Calcium 8.7 mg/dL (8.4-10.2); Carbon Dioxide 24 mmol/L (22-29); Chloride 103 mmol/L (96-108); Cholesterol 129 mg/dL (<200); Estimated Glomerular Filt Rate 53; HDL Cholesterol 59 mg/dL (>40); Potassium 4.2 mmol/L (3.3-5.1); Sodium 136 mmol/L (135-145); Total Protein 6.4 g/dL (6.5-8.0); Triglycerides 68 mg/dL (<150)
[2025-03-27 13:37] LABS: Free T4 (Free Thyroxine) 1.11 ng/dL (0.71-1.85)
== END 2025-03-27 08:57 | disposition home or self-care (01) ==
LOC: HO.LAB 08:56
PROVIDERS: PCP Student in an Organized Health Care Education/Training Program; Visit Provider Student in an Organized Health Care Education/Training Program
DX: I63.81 Other cerebral infarction due to occlusion or stenosis of small artery (principal); I10 Essential (primary) hypertension; F17.200 Nicotine dependence, unspecified, uncomplicated; Z12.39 Encounter for other screening for malignant neoplasm of breast; Z13.21 Encounter for screening for nutritional disorder; Z13.29 Encounter for screening for other suspected endocrine disorder
CPT/HCPCS: 36415; 80053; 80061; 82306; 83036; 84439; 84443; 85025

== ENCOUNTER 2025-03-30 08:35 | Outpatient (AMB) | payer MEDICARE, MEDICAID, SELFPAY ==
--- NOTE | 2025-03-30 08:52 | A.OFFPC_ITS ---
Vital Signs 03/30/25 08:59 Height 4 ft 10 in Weight 50.802 kg BMI 23.4 BP 132/70 Respiration 16 Pulse 63 Pulse Source Pulse Oximeter Temp 97.1 F Temp Source Temporal Artery Scan Pulse Oximetry (%) 96 Oxygen Delivery Method Room Air Intake Visit Reasons: 3 MO F/UP Multiple Punch Press Operator Required: No Accompanied by: Self / Same As Patient Allergies ceftriaxone (From Rocephin) Allergy (Severe, Verified 03/30/25 08:57) Unknown ibuprofen (From MOTRIN) Allergy (Severe, Verified 03/30/25 08:57) GI BLEED aspirin (ASA) Allergy (Intermediate, Verified 03/30/25 08:57) GI BLEED lactose (LACTOSE) Allergy (Intermediate, Verified 03/30/25 08:57) DIARRHEA Tobacco use date assessed: 03/19/25 [facility] Medical History (Updated 03/30/25 @ 09:22 by CONG Valdivia) Dementia with mood disturbance Hypercholesterolemia Hypothyroidism Screening breast examination Tobacco use disorder Hypertension Left thalamic infarction Surgical History (Updated 03/17/25 @ 16:53 by Alina Lopez) History of colonoscopy (~12/21/14) Social History Housing: Assisted Living Facility Patient Tobacco Use Status: Never used Tobacco e-Cigarette/Vaping Use: Never Used Physical exam (Primary Care) Vital Signs: Last Vital Signs Temp 97.1 F 03/30/25 08:59 Pulse 63 03/30/25 08:59 Resp 16 03/30/25 08:59 BP 132/70 03/30/25 08:59 Pulse Ox 96 03/30/25 08:59 Oxygen Delivery Method Room Air 03/30/25 08:59 BMI result Body Mass Index 23.4 Tobacco/Smoking Status: Tobacco use Status Tobacco use date assessed 03/19/25 03/30/25 08:55 Patient Tobacco Use Status Never used Tobacco 03/30/25 08:55 e-Cigarette/Vaping Use Never Used 03/30/25 08:55 Coding Level of Care Code Est Pt Level 4 (79571) Diagnoses Hypertension I10 Left thalamic infarction I63.81 Hypothyroidism E03.9 Hypercholesterolemia E78.00 Dementia with mood disturbance F03.93 Assessment & Plan Assessment & Plan (1) Hypertension: Comment: Pressure is well controlled in clinic today at 110/56 with home blood pressure medications that atenolol 25 mg b.i.d., hydralazine 25 mg t.i.d., losartan 25 mg daily We will continue same medications for now and re-evaluate her medications need to be discontinued or decreased at next hospitalization/clinic visit Code(s): I10 - Essential (primary) hypertension Category: Medical Plan: Controlled in the office today. Continue current therapies (2) Left thalamic infarction: Comment: Recently admitted to [facility] with dizziness and found to have left thalamic stroke on MRI imaging. Started on Plavix and statin during hospitalization. We will obtain lipid panel to evaluate and continue Plavix. Code(s): I63.81 - Other cerebral infarction due to occlusion or stenosis of small artery Category: Medical Plan: Continue Plavix and atorvastatin. Await results of Holter monitor. Follow-up with Neurology (3) Hypothyroidism: Code(s): E03.9 - Hypothyroidism, unspecified Category: Medical Plan: Euthyroid. Continue levothyroxine (4) Hypercholesterolemia: Code(s): E78.00 - Pure hypercholesterolemia, unspecified Category: Medical Plan: LDL at goal. Continue atorvastatin (5) Dementia with mood disturbance: Code(s): F03.93 - Unspecified dementia, unspecified severity, with mood disturbance Category: Medical Plan: Overall stable. Follow-up with Neurology. Continue fluoxetine Plan Follow-up in the office in 3 months as scheduled. CBC ordered given mild leukocytosis noted on recent labs Orders: Orders Complete Blood Count Auto Diff Today D72.829 - Elevated white blood cell count, unspecified
[2025-03-30 08:59] VITALS: BP 132/70; PULSE 63; RESP 16; TEMP 36.2; O2SAT 96; BMI 23.4
--- OUTSIDE RECORDS SUMMARY | 2025-03-30 09:35 | XMS_ITS | Patient Health Record ---
Author [facility] Address [address] [place] [address] Care Team Providers Care Preventive Medicine Officer Name Role Phone Donal CRORAL, Froy Primary Care Provider Unavailab Samuel Aviles Unavailable [phone] Allergies Allergen (clinical drug ingredient) Drug/Non Drug [...] W/U Status Risk Notes Problem Tinea unguium (472761360) Tinea unguium (B35.1) Active confirmed Plan Of Treatment Pending Test Test Name Order Date [id number] NAIL, 6 OR MORE 04/30/2018 Insurance Providers Payer Name Payer Address Payer Phone Subscriber Number Group Number Insured Name Patient Relationship to Insured Coverage Start Date Coverage End Date Medicare National Govt Sv[employer] [address] [place] [address] [id number] Nhung Carpenter Self - patient is the insured 6 Medical (General) History Medical History History ICD Code Anxiety Diverticulosis Psychiatric disorder Reflux ( GERD) Psoriasis/eczema Cataracts Scoliosis Thyroid
--- OUTSIDE RECORDS SUMMARY | 2025-03-30 09:35 | XMS_ITS | Patient Health Record ---
Author Organization [facility] Address [address] [place] [address] Care Team Providers Care Position Classification Manager Name Role Phone Donal (RETIRED) Froy CORRAL Primary Care Provider Unavailable Zbigniew Ayers Unavailable [phone] Allergies Allergen (clinical drug ingredient) Drug/Non Drug [...] Problem Status W/U Status Risk Notes Problem [id number] Vomiting, nausea presence unspecified, unspecified intactability, vomiting [...] OF [place] [address] [place] [address] [id number] YING MARCANO Self - patient is the insured MEDICAID OF [facility] [address] [place] [address] [id number] YING MARCANO Self - patient is the insured Medical (General) History Medical History History ICD Code 12/16/1997 EGD--Billroth II anatomy, nor mal small bowel biopsies 12/17/1996 --Negative Colonoscopy to the splenic flexure and barium enema Denies CT,DM,CVA,Lung disease,renal dise ase Peptic ulcer disease--status post partial gastrectomy with Billroth II anastomosis Diverticulitis at the juncti on of the descending and sigmoid colon seen on CAT scan in February of 2014. hypothyroidism mild mental retardation hard of hearing Negative screening colonoscopy in 12/2014 Surgical History Surgery Date(Month/Year) Partial gastrectomy with a B-II anatomy [facility]
== END 2025-03-30 09:44 | disposition home or self-care (01) ==
LOC: HO.HMCHD 08:36
PROVIDERS: PCP Student in an Organized Health Care Education/Training Program; Visit Provider Physician Assistant
DX: I10 Essential (primary) hypertension (principal); I63.81 Other cerebral infarction due to occlusion or stenosis of small artery; E03.9 Hypothyroidism, unspecified; E78.00 Pure hypercholesterolemia, unspecified; F03.93 Unspecified dementia, unspecified severity, with mood disturbance

== ENCOUNTER 2025-03-30 09:27 | Outpatient (REF) | payer MEDICARE, MEDICAID, SELFPAY ==
[2025-03-30 09:55] LABS: MANUAL DIFF FLAG NO
[2025-03-30 10:07] LABS: Hematocrit 34.3 % (37.0-47.0); Hemoglobin 11.5 g/dl (12.0-16.0); Imm Gran Abs Auto 0.03 X10*3/uL (0.00-0.03); Imm Gran Pct Auto 0.3 % (0.0-0.4); Lymphocytes Absolute Auto 1.3 X10*3/uL (1.2-4.9); Mean Corpuscular HGB Conc 33.5 g/dl (31.0-35.0); Mean Corpuscular Hemoglobin 29.0 pg (27.0-33.0); Mean Corpuscular Volume 86.6 fL (80.0-98.0); NRBC Abs Auto 0.000 X10*3/uL (0.0-0.012); NRBC Pct Auto 0.0 /100WBC (0.0-0.2); Platelet Count 304 X10*3/uL (160-400); Red Blood Count 3.96 X10*6/uL (4.20-5.50); White Blood Count 11.0 X10*3/uL (4.8-10.8)
== END 2025-03-30 09:28 | disposition home or self-care (01) ==
LOC: HO.10HDL 09:27
PROVIDERS: Visit Provider Physician Assistant
DX: D72.829 Elevated white blood cell count, unspecified (principal); I10 Essential (primary) hypertension; I63.81 Other cerebral infarction due to occlusion or stenosis of small artery; E03.9 Hypothyroidism, unspecified; E78.00 Pure hypercholesterolemia, unspecified; F03.93 Unspecified dementia, unspecified severity, with mood disturbance; Z79.01 Long term (current) use of anticoagulants
CPT/HCPCS: 36415; 85025; 99212

== ENCOUNTER 2025-04-12 11:51 | Emergency (ER) | payer MEDICARE, MEDICAID, SELFPAY ==
--- NOTE | ~2025-04-12 | XR_ITS ---
CLINICAL HISTORY: pain and swelling Radiographs of the left wrist, 4 views Comparison: None available Findings: No fracture or dislocation. No cortical destruction or periostitis to indicate osteomyelitis.Mild degenerative change. 3 mm sclerotic lesion in the scaphoid, likely a bone island. Vascular calcifications. Soft tissue swelling. Impression: No acute osseous abnormality. This document has been electronically signed by: Mary Cloud MD on 04/12/2025 14:05:08
--- NOTE | ~2025-04-12 | US_ITS ---
CLINICAL HISTORY: left hand swollen and red Left upper extremity venous duplex ultrasound Comparison: None Findings: The visualized deep veins are fully compressible with normal flow. Impression: No deep vein thrombosis. This document has been electronically signed by: Mary Cloud MD on 04/12/2025 19:27:24
--- NOTE | 2025-04-12 12:00 | ED_ITS ---
HPI - General Adult General Chief complaint: General Medical Stated complaint: Cellulitis? L hand Time Seen by Provider: 04/12/25 14:49 Source: patient Mode of arrival: ambulatory Limitations: no limitations History of Present Illness ED Provider: Rodolfo Banuelos HPI narrative: 70 yold female with pmh of GERD, anemia, Depression presents to the ED for left hand pain/swelling/redness since yesterday. patient denies any recent trauma, fever, chills, or red streaks. patient denies any numbness or tingling in extremities. Related Data Home Medications ?Medication ?Instructions ?Recorded ?Confirmed acetaminophen 650 mg 650 mg PO Q8H 03/19/25 tablet,extended release atenolol 25 mg tablet 25 mg PO BID 03/19/25 cholecalciferol (vitamin D3) 25 25 mcg PO DAILY mcg (1,000 unit) capsule famotidine 40 mg tablet 40 mg PO DAILY 03/19/25 ferrous sulfate 325 mg (65 mg 325 mg PO DAILY 03/19/25 iron) tablet fluvoxamine 100 mg tablet 100 mg PO BEDTIME 03/19/25 fluvoxamine 50 mg tablet 50 mg PO BEDTIME 03/19/25 levothyroxine 100 mcg tablet 100 mcg PO ONCE 03/19/25 loperamide 2 mg tablet 2 mg PO Q6H PRN 03/19/25 metoclopramide HCl 5 mg tablet 5 mg PO BID 03/19/25 multivitamin with minerals 1 cap PO DAILY 03/19/25 Previous Rx's ?Medication ?Instructions ?Recorded atorvastatin 80 mg tablet 80 mg PO DAILY #90 tabs 11/14 clopidogrel 75 mg tablet 75 mg PO DAILY #90 tabs 11/14 hydralazine 25 mg tablet 25 mg PO TID #270 tabs 03/26 losartan 25 mg tablet 25 mg PO DAILY #90 tabs 11/14 prednisone 20 mg tablet 40 mg (2 x 20 mg) PO DAILY 5 days 04/12/25 #10 tabs sulfamethoxazole 800 1 tab PO Q12H 7 days #14 tab s 04/12/25 mg-trimethoprim 160 mg tablet (Bactrim DS) Allergies Allergy/AdvReac Type Severity Reaction Status Date / Time ceftriaxone (From Rocephin) Allergy Severe Unknown Verified 04/12/25 12:02 ibuprofen (From MOTRIN) Allergy Severe GI BLEED Verified 04/12/25 12:02 aspirin (ASA) Allergy Intermediate GI BLEED Verified 04/12/25 12:02 lactose (LACTOSE) Allergy Intermediate DIARRHEA Verified 04/12/25 12:02 Review of Systems 2 Review of Systems: left wrist pain Yes all other systems are reviewed and are negative [facility] Past Medical History Medical History (Updated 04/13/25 @ 00:00 by Katelyn Hurley) Dementia with mood disturbance Hypercholesterolemia Hypothyroidism Screening breast examination Tobacco use disorder Hypertension Left thalamic infarction Surgical History (Updated 03/17/25 @ 16:53 by Alina Lopez) History of colonoscopy (~12/21/14) Social History Social History Housing: Assisted Living Facility Patient Tobacco Use Status: Never used Tobacco Smoked in Last 30 Days: No e-Cigarette/Vaping Use: Never Used Use of substances other than those prescribed or required for medical reasons: No Advance Directives: No Advance Directives Information Provided: Yes Physical Exam ED Vital Signs: Vital Signs - 24 hr 04/12/25 12:01 04/12/25 16:37 04/12/25 20:35 Temperature 97.6 F 97.9 F 98.0 F Pulse Rate 65 62 63 Respiratory Rate 18 18 14 Blood Pressure 183/73 H 176/68 H 170/74 H Pulse Oximetry 98 98 94 Oxygen Delivery Method Room Air Room Air Room Air 04/12/25 20:49 Temperature 98.0 F Pulse Rate 63 Respiratory Rate 14 Blood Pressure 170/74 H Pulse Oximetry 94 Oxygen Delivery Method Room Air BMI result Body Mass Index 23.0 Const Orientation/consciousness: patient oriented x3 HENMT Head: Yes normal to inspection, Yes No palpable skull fracture present, Yes normocephalic and Yes atraumatic Eyes General: appearance normal, both eyes and all related structures Neck Neck: Yes normal visual inspection, Yes full ROM, Yes no lymphadenopathy, Yes no meningeal signs, Yes trachea midline, Yes supple, No anterior neck swelling and No tender Chest Chest palpation & inspection: normal inspection of the chest and normal palpation of entire chest wall Resp Effort & Inspection: normal respiratory effort and able to speak in complete sentences Auscultation: clear to auscultation bilaterally Cardio Jugular venous distension: no JVD Heart sounds: S1 normal heart sound present and S2 normal heart sound present GI Inspection: Yes normal to inspection Palpation (GI): Soft to palpation, not firm, nontender, no guarding and not rigid General: Yes no CVA tenderness Back/Spine/Pelvis Back: no CVA tenderness and No back tenderness Skin General skin exam: no rashes or lesions noted, elasticity normal and turgor normal Neuro General: patient oriented x3, gait normal, tone normal, moves all extremities, Normal light touch and pain sensation, no meningeal signs, no focal motor deficits, CN's II-XI intact bilaterally and normal sensation to monofilament Extrem Other: Patient is able to flex and extend wrist. Capillary refills attack. Rest of extremity normal. Vascular motor neuro exam intact. Negative for ecchymosis or crepitus or deformity. Psych Appearance: grossly normal, well kempt and not disheveled Course Course Course Narrative: This is a rapid medical exam performed by Leonarda Valencia NP: Additional HPI, ROS, PE not included below will be deferred to primary provider. 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 Patient referred to the ED from urgent care for evaluation of left wrist redness and swelling, provider there c/f septic joint. Fire Equipment Repairer Inspector reports rings stuck on finger, rings removed in triage. Plan: Labs, x-ray Medications Administered Discontinued Medications Generic Name Dose Route Start Last Admin Trade Name Yenny PRN Reason Stop Dose Admin Prednisone 40 mg 04/12/25 18:50 04/12/25 19:16 Prednisone 20 Mg Tablet PO 04/12/25 18:51 40 mg ONCE ONE Administration Trimethoprim/Sulfamethoxazole 1 tab 04/12/25 18:51 04/12/25 19:16 Sulfamethox/Trimeth 800/160 Tablet PO 04/12/25 18:52 1 tab ONCE ONE Administration Medical Decision Making Medical Decision Making [facility] Narrative: 70-year-old female presents to ED for left LEs pain and swelling since yesterday the any trauma. Positive for some erythema. Negative for stiffness or inability to move wrist. Patient is able to flex and extend wrist but with slight pain. Initial x-ray negative for any effusions or signs of osteomyelitis. Slight white blood cell count of 12. CRP slightly elevated. ESR pending. Bedside ultrasound pending. . 6:30pm: Patient refused ESR after multiple pokes. Low suspicion for septic joint or osteomyelitis. Pending ultrasound 8:17pm: Ultrasound negative for DVT. Patient given dose of Bactrim and prednisone. Patient has allergic reaction to cephlasporins. Patient will be discharged with same meds. Not suspecting osteomyelitis, arterial occlusion, compartment syndrome, necrotizing fasciitis, septic joint, gout or any other life threatening etiolgy. Differential Diagnosis Differential Diagnoses: The differential diagnosis associated with the presentation includes (Cellulitis arthritis gout) Admission/Observation Consideration of admission/observation: Escalation of care including admission/observation considered Lab Data MDM Lab Attestation statement: I reviewed the patient's lab results. 04/12/25 12:23 04/12/25 12:23 Labs: Lab Results 04/12/25 Range/Units 12:23 WBC 12.3 H (4.8-10.8) X10*3/uL RBC 4.32 (4.20-5.50) X10*6/uL Hgb 12.4 (12.0-16.0) g/dl Hct 37.3 (37.0-47.0) % MCV 86.3 (80.0-98.0) fL MCH 28.7 (27.0-33.0) pg MCHC 33.2 (31.0-35.0) g/dl RDW 13.2 (11.0-16.0) % Plt Count 257 (160-400) X10*3/uL MPV 10.0 (9.4-12.3) fL Immature Gran % (Auto) 0.3 (0.0-0.4) % Neut % (Auto) 76.1 H (45-73) % Lymph % (Auto) 11.9 L (20-40) % [place] % (Auto) 9.4 (2-11) % Eos % (Auto) 1.5 (0-4) % Baso % (Auto) 0.8 (0-2) % Lymph # (Auto) 1.5 (1.2-4.9) X10*3/uL [place] # (Auto) 1.2 (0.1-1.2) X10*3/uL Eos # (Auto) 0.2 (0.0-0.4) X10*3/uL Baso # (Auto) 0.1 (0.0-0.2) X10*3/uL Abs Immat Gran (auto) 0.04 H (0.00-0.03) X10*3/uL Absolute Neuts (auto) 9.3 H (2.0-8.3) x10*3/uL Absolute Nucleated RBC 0.000 (0.0-0.012) X10*3/uL Nucleated RBC % (auto) 0.0 (0.0-0.2) /100WBC ESR Cancelled Sodium 134 L (135-145) mmol/L Potassium 4.2 (3.3-5.1) mmol/L Chloride 104 (96-108) mmol/L Carbon Dioxide 20 L (22-29) mmol/L Anion Gap 14 (12-20) BUN 13 (9-16) mg/dL Creatinine 0.86 (0.5-1.4) mg/dL Estim Creat Clear Calc 42.2 Estimated GFR > 60 Random Glucose 96 (60-115) mg/dL Uric Acid 3.1 (2.4-5.7) mg/dL Calcium 8.8 (8.4-10.2) mg/dL Total Bilirubin 0.5 (0.0-1.0) mg/dL AST 41 H (5-31) U/L ALT 35 H (0-31) U/L Alkaline Phosphatase 126 H (39-117) U/L C-Reactive Protein 2.94 H (< or = 0.50) mg/dL Total Protein 6.5 (6.5-8.0) g/dL Albumin 3.9 (3.5-5.0) g/dL Independent Interpretation I performed an independent interpretation of an: Plain X-Ray and Ultrasound Radiology Impression Discussion of test interpretation with radiology: I have reviewed the radiologist's reading. Independent Historian Clinical information obtained from an independent historian. History obtained from or confirmed by: Other (patient, Fire Equipment Repairer Inspector Julissa) Prescription Management I considered prescription management with: Pain Medication and Antibiotic Discharge Plan Discharge Clinical Impression: Cellulitis, Arthritis Patient Disposition: Home, Self-Care Instructions: Cellulitis (ED), Osteoarthritis (ED), Warm Compress or Soak (ED) Additional Instructions: Your images and labs came back reassuring. You will be discharged with oral antibiotics and prednisone. Recommend follow-up with primary care provider. Return to the ED immediately for worsening pain, increased swelling, stiffness, fever, chills, red streaks, chest pain, shortness of breath, bluish black discoloration, or any other concerning symptoms. Continue taking Tylenol for pain relief. Ordering Physician: Rodolfo Banuelos Date of Service: 04/12/25 Procedure(s): US venous duplex UE LT Accession Number(s): [id number] cc: Rodolfo Banuelos; Nga Parsons~ Reason for Exam: left hand swollen and red CLINICAL HISTORY: left hand swollen and red Left upper extremity venous duplex ultrasound Comparison: None Findings: The visualized deep veins are fully compressible with normal flow. Impression: No deep vein thrombosis. This document has been electronically signed by: Mary Cloud MD on 04/12/2025 19:27:24 Ordering Physician: Edwige Valencia NP Date of Service: 04/12/25 Procedure(s): XR wrist LT 2V Accession Number(s): [id number] cc: Nga Parsons; Edwige Valencia NP~ Reason for Exam: pain and swelling CLINICAL HISTORY: pain and swelling Radiographs of the left wrist, 4 views Comparison: None available Findings: No fracture or dislocation. No cortical destruction or periostitis to indicate osteomyelitis.Mild degenerative change. 3 mm sclerotic lesion in the scaphoid, likely a bone island. Vascular calcifications. Soft tissue swelling. Impression: No acute osseous abnormality. This document has been electronically signed by: Mary Cloud MD on 04/12/2025 14:05:08 Prescriptions: New prednisone 20 mg tablet 40 mg PO DAILY 5 Days Qty: 10 0RF sulfamethoxazole-trimethoprim [Bactrim DS] 800-160 mg tablet 1 tab PO Q12H 7 Days Qty: 14 0RF No Action atorvastatin 80 mg tablet 80 mg PO DAILY Qty: 90 1RF hydralazine 25 mg tablet 25 mg PO TID Qty: 270 1RF losartan 25 mg tablet 25 mg PO DAILY Qty: 90 1RF clopidogrel 75 mg tablet 75 mg PO DAILY Qty: 90 1RF famotidine 40 mg tablet 40 mg PO DAILY loperamide 2 mg tablet 2 mg PO Q6H PRN atenolol 25 mg tablet 25 mg PO BID acetaminophen 650 mg tablet extended release 650 mg PO Q8H levothyroxine 100 mcg tablet 100 mcg PO ONCE metoclopramide HCl 5 mg tablet 5 mg PO BID fluvoxamine 100 mg tablet 100 mg PO BEDTIME ferrous sulfate 325 mg (65 mg iron) tablet 325 mg PO DAILY fluvoxamine 50 mg tablet 50 mg PO BEDTIME cholecalciferol (vitamin D3) 25 mcg (1,000 unit) capsule 25 mcg PO DAILY multivitamin with minerals Capsule 1 cap PO DAILY Referrals: Nga Parsons PA [Primary Care Provider, Hospitalist] - 3 days Referral Note: Inflammatory arthritis versus cellulitis Clinical Impression: Arthritis; Cellulitis Interventions: ED Discharge Assessment Last Done: 04/12/25 20:49 Discharge Date/Time: 04/12/25 20:50 Print Language: South African
[2025-04-12 12:01] VITALS: BP 183/73; PULSE 65; RESP 18; TEMP 36.4; O2SAT 98; BMI 23.0
[2025-04-12 12:31] LABS: MANUAL DIFF FLAG NO
[2025-04-12 12:35] LABS: Hematocrit 37.3 % (37.0-47.0); Hemoglobin 12.4 g/dl (12.0-16.0); Imm Gran Abs Auto 0.04 X10*3/uL (0.00-0.03); Imm Gran Pct Auto 0.3 % (0.0-0.4); Lymphocytes Absolute Auto 1.5 X10*3/uL (1.2-4.9); Mean Corpuscular HGB Conc 33.2 g/dl (31.0-35.0); Mean Corpuscular Hemoglobin 28.7 pg (27.0-33.0); Mean Corpuscular Volume 86.3 fL (80.0-98.0); NRBC Abs Auto 0.000 X10*3/uL (0.0-0.012); NRBC Pct Auto 0.0 /100WBC (0.0-0.2); Platelet Count 257 X10*3/uL (160-400); Red Blood Count 4.32 X10*6/uL (4.20-5.50); White Blood Count 12.3 X10*3/uL (4.8-10.8)
[2025-04-12 12:45] LABS: Uric Acid 3.1 mg/dL (2.4-5.7)
[2025-04-12 12:48] LABS: Alanine Aminotransferase 35 U/L (0-31); Albumin Level 3.9 g/dL (3.5-5.0); Alkaline Phosphatase 126 U/L (39-117); Anion Gap 14 (12-20); Aspartate Amino Transferase 41 U/L (5-31); Blood Urea Nitrogen 13 mg/dL (9-16); Calcium 8.8 mg/dL (8.4-10.2); Carbon Dioxide 20 mmol/L (22-29); Chloride 104 mmol/L (96-108); Creatinine Clr Calc Pharmacy 42.2; Estimated Glomerular Filt Rate > 60; Potassium 4.2 mmol/L (3.3-5.1); Sodium 134 mmol/L (135-145); Total Protein 6.5 g/dL (6.5-8.0)
--- OUTSIDE RECORDS SUMMARY | 2025-04-12 13:07 | XMS_ITS | Patient Health Record ---
Author Organization [facility] Address [address] [place] [address] Care Team Providers Care Business Services Officer Name Role Phone Donal (RETIRED) Froy CORRAL Primary Care Provider Unavailable Zbigniew Ayers Unavailable [phone] Allergies Allergen (clinical drug ingredient) Drug/Non Drug [...] Problem Status W/U Status Risk Notes Problem [id number] Vomiting, nausea presence unspecified, unspecified intactability, vomiting [...] OF [place] [address] [place] [address] [id number] YING MARCANO Self - patient is the insured MEDICAID OF [facility] [address] [place] [address] [id number] YING MARCANO Self - patient is the [...]
--- OUTSIDE RECORDS SUMMARY | 2025-04-12 13:07 | XMS_ITS | Patient Health Record ---
Author [facility] Address [address] [place] [address] Care Team Providers Care Rubber Insulator Name Role Phone oDnal CORRAL, Froy Primary Care Provider Unavailab Samuel Aviles Unavailable [phone] Allergies Allergen (clinical drug ingredient) Drug/Non Drug [...] W/U Status Risk Notes Problem Tinea unguium ([id number]) Tinea unguium (B35.1) Active confirmed Plan Of Treatment Pending Test Test Name Order Date [id number] NAIL, 6 OR MORE 04/30/2018 Insurance Providers Payer Name Payer Address Payer Phone Subscriber Number Group Number Insured Name Patient Relationship to Insured Coverage Start Date Coverage End Date Medicare National [employer] [address] [place] [address] [id number] Nhung Carpenter Self - patient is the insured 6 Medical (General) History Medical History History ICD Code Anxiety Diverticulosis Psychiatric disorder Reflux ( GERD) Psoriasis/eczema Cataracts Scoliosis Thyroid
[2025-04-12 16:37] VITALS: BP 176/68; PULSE 62; RESP 18; TEMP 36.6; O2SAT 98
--- NOTE | 2025-04-12 16:39 | PC.NURSE ---
this nurse took over patient care from [facility] at 1530. patient awake/alert to person/place, c/o 2/10 lt wrist pain- area slightly swollen/warm to touch- + csm/pulses. rr equal/non labored, vss, pt ambulates independently per pts house staff at bedside. Pt is a difficult stick- has had multiple attempts for additional labs. Pt currently refusing any additional attempts, provider-Rodolfo was notified of this. call mitchell within reach, plan of care ongoing
[2025-04-12] MEDS: Sulfamethox/Trimeth 800/160 TABLET 1 TAB PO (19:16)
[2025-04-12 20:35] VITALS: BP 170/74; PULSE 63; RESP 14; TEMP 36.7; O2SAT 94
[2025-04-12 20:49] VITALS: BP 170/74; PULSE 63; RESP 14; TEMP 36.7; O2SAT 94
== END 2025-04-12 20:50 | disposition home or self-care (01) ==
PROVIDERS: Registered Nurse Emergency; Emergency Provider Emergency Medicine; PCP Physician Assistant
DX: L03.114 Cellulitis of left upper limb (principal); R60.0 Localized edema; M25.532 Pain in left wrist; Z79.899 Other long term (current) drug therapy
CPT/HCPCS: 36415; 73100; 80053; 84550; 85025; 86140; 93971; 99284

== ENCOUNTER → 2025-04-12 12:03 | Outpatient (BNV) | payer MEDICARE, MEDICAID, SELFPAY | PROVIDERS: Emergency Provider Emergency Medicine; PCP Physician Assistant; Visit Provider Radiology Diagnostic Radiology | DX: M79.89 Other specified soft tissue disorders (principal); M25.532 Pain in left wrist | CPT/HCPCS: 73100; 93971 ==

== ENCOUNTER 2025-05-11 11:25 | Outpatient (AMB) | payer MEDICARE, MEDICAID, SELFPAY ==
--- NOTE | 2025-05-11 10:13 | MHC.PC.OV ---
Vital Signs 05/11/25 11:32 Weight 45.359 kg BP 110/52 L Blood Pressure Location Lt brachial Position Sitting Respiration 17 Pulse 82 Pulse Source Pulse Oximeter Temp 97.6 F Temp Source Temporal Artery Scan Pulse Oximetry (%) 97 Oxygen Delivery Method Room Air Intake Visit Reasons: HFU, 3 stitches removed White Lead Grinder Required: No Accompanied by: [email or web address] Allergies ceftriaxone (From Rocephin) Allergy (Severe, Verified 05/11/25 10:13) Unknown ibuprofen (From MOTRIN) Allergy (Severe, Verified 05/11/25 10:13) GI BLEED aspirin (ASA) Allergy (Intermediate, Verified 05/11/25 10:13) GI BLEED lactose (LACTOSE) Allergy (Intermediate, Verified 05/11/25 10:13) DIARRHEA Tobacco use date assessed: 04/16/25 Dental Screening Dental Screen Date: 04/16/25 HPI HPI Comments History of Present Illness Details 70-year-old female with history of hypertension, recent left thalamic infarct, hypothyroidism, hypercholesterolemia, dementia with mood disturbance presenting to the office today accompanied by Maddi interventional pain physicianRena for posterior evaluation. While at her day program, she abruptly got up from the table, typically requires assistance, and sustained a mechanical fall. There was head strike but no loss of consciousness. She is on DAPT but no anticoagulation. She struck her right orbit with laceration with controlled bleeding. She presented to [facility] for evaluation. Head CT was negative for acute intracranial abnormality/bleed. She did have 3 sutures placed to the right orbit/brow. Since then, changes in supervision have been made at the care home. She does have a bed rail as well as bed alarm. Also has shower bar. She does use walker around the house but does not use any assistive device in the community. She does continue with gait abnormality as well as ongoing confusion secondary to her CVA. Follows with Neurology. ROS: unable to asses hpi due to mental status EXAM: Constitutional - Awake and Alert, No apparent distress Eyes - PERRL Cardiovascular - S1S2, RRR, No edema Respiratory - Normal lung expansion, Normal respiratory effort, No respiratory distress, CTA bilaterally Extremities - no calf tenderness bilaterally, no swelling Skin - Warm/Dry. Three intact interupted sutures to R brow which were removed without any bleeding, purulent drainage, or wound dehiscence Neurological - Alert & disoriented, groggy appearing [facility] Medical History (Updated 05/11/25 @ 12:40 by CONG Valdivia) Left hand pain Dementia with mood disturbance Hypercholesterolemia Hypothyroidism Screening breast examination Tobacco use disorder Hypertension Left thalamic infarction Surgical History History of colonoscopy (~12/21/14) Family History (Updated 04/16/25 @ 14:37 by Alcira Wyman MA) Mother No problems noted. Father No problems noted. Social History Housing: Assisted Living Facility Patient Tobacco Use Status: Former Tobacco user e-Cigarette/Vaping Use: Former Use service: No Current occupational status: retired Cognitive needs: No Hearing needs: Yes (bilateral hearing aids) Vision needs: Yes (rx glassses) Questionnaire Thrive Questionnaire Date Thrive assessed: 04/16/25 EAMON-7 AMB Questionnaire EAMON-7 Date EAMON - 7 assessed: 04/16/25 Source: Developed by Drs. Zbigniew Foster, Ashlyn Villela, Osvaldo Medellin and colleagues, with an educational leesa from [employer]. Physical exam (Primary Care) Tobacco/Smoking Status: Tobacco use Status Tobacco use date assessed 04/16/25 05/11/25 10:13 Patient Tobacco Use Status Former Tobacco user 05/11/25 10:13 e-Cigarette/Vaping Use Former Use 05/11/25 10:13 Thrive Assessment: Date of Thrive Assessment Date Thrive assessed 04/16/25 05/11/25 10:13 Coding Level of Care Code Est Pt Level 4 (43108) Complex EM visit Add On G2211 Diagnoses Facial laceration S01.81XA Hypertension I10 Left thalamic infarction I63.81 Fall W19.XXXA Assessment & Plan Assessment & Plan (1) Facial laceration: Code(s): S01.81XA - Laceration without foreign body of other part of head, initial encounter Category: Medical Plan: Removed 3 intact interrupted sutures without any bleeding, drainage, dehiscence of the wound. Keep open to air. Gentle cleansing with antibiotic soap (2) Hypertension: Code(s): I10 - Essential (primary) hypertension Category: Medical Plan: Controlled. Continue current therapies (3) Left thalamic infarction: Code(s): I63.81 - Other cerebral infarction due to occlusion or stenosis of small artery Category: Medical Plan: Continue plavix. Follow up with neurology. Continue fall precautions (4) Fall: Code(s): W19.XXXA - Unspecified fall, initial encounter Plan: as above Plan Follow-up in the office as scheduled in June
[2025-05-11 11:32] VITALS: BP 110/52; PULSE 82; RESP 17; TEMP 36.4; O2SAT 97
== END 2025-05-11 12:02 | disposition home or self-care (01) ==
LOC: HO.HMCHD 11:25
PROVIDERS: PCP Physician Assistant; Visit Provider Physician Assistant
DX: S01.81XA Laceration without foreign body of other part of head, initial encounter (principal); I10 Essential (primary) hypertension; I63.81 Other cerebral infarction due to occlusion or stenosis of small artery; W19.XXXA Unspecified fall, initial encounter

== ENCOUNTER → 2025-05-11 11:25 | Outpatient (BNVA) | payer MEDICARE, MEDICAID, SELFPAY | PROVIDERS: PCP Physician Assistant; Visit Provider Physician Assistant | DX: S01.81XD Laceration without foreign body of other part of head, subsequent encounter (principal); I10 Essential (primary) hypertension; I69.398 Other sequelae of cerebral infarction; R26.89 Other abnormalities of gait and mobility; I69.319 Unspecified symptoms and signs involving cognitive functions following cerebral infarction; Z79.02 Long term (current) use of antithrombotics/antiplatelets; Z91.81 History of falling | CPT/HCPCS: 99212 ==

== ENCOUNTER 2025-06-08 13:43 | Outpatient (AMB) | payer MEDICARE, MEDICAID, SELFPAY ==
--- NOTE | 2025-06-08 13:45 | A.OFFPC_ITS ---
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 Accompanied by: Self / Same As Patient Allergies ceftriaxone (From Rocephin) Allergy (Severe, Verified 06/08/25 13:45) Unknown ibuprofen (From MOTRIN) Allergy (Severe, Verified 06/08/25 13:45) GI BLEED aspirin (ASA) Allergy (Intermediate, Verified 06/08/25 13:45) GI BLEED lactose (LACTOSE) Allergy (Intermediate, Verified 06/08/25 13:45) DIARRHEA Tobacco use date assessed: 04/16/25 Dental Screening Dental Screen Date: 04/16/25 HPI HPI Comments History of Present Illness Details 70-year-old female with history of hyper tension, recent left thalamic infarct, hypothyroidism, hypercholesterolemia, dementia with mood disturbance presenting to the office today 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 ?Presented from half-way due to nausea?and vomiting?throughout the day, few episodes of diarrhea,?reportedly at baseline only alert to person and?occasionally to place.? Help from half-way at bedside?tells me that over the past few months patient has been on a decline?and has been?needing assistance for everything barely getting out of bed.? No fevers or chills or cough or reported?at the facility?but she did have a low-grade temp in the ED.? Initially had reported abdominal pain but was unable to localize this. On arrival, had leukocytosis and was found to be hypoxic. It was thought that vomiting may have brought on aspiration pneumonia. CT of the chest showed near complete consolidation of the right lower lobe air bronchogram which were new from prior study. She initially had been on IV cefepime, vanco, Flagyl which was discontinued and was started on Augmentin 875 mg twice daily. During hospitalization GI was also consulted due to the ascites that was found on CT scan. Heart failure it was less likely as most recent echo showed normal EF. IR was consulted and patient underwent paracentesis. Negative for SBP with peritoneal cultures without any significant can growth. Concern for cirrhosis. *Recieved call from [facility] pathology regarding peritoneal fluid which showed atypical cells with staining suggestive of malignancy, GI source likely. CDRX2 positive Cognitive impairment with mood disturbance-has been exhibiting anhedonia and anorexia. She has been weak as well. She is on fluvoxamine. She has been exhibiting these symptoms for about 3 months. Hypertension-blood pressure 103/58. On atenolol hydralazine, losartan Hypothyroidism-on levothyroxine 100 mcg daily. GERD-on famotidine History of CVA-left thalamic stroke- on DAPT, statin ROS: Unable to assess due to mental status EXAM: Constitutional - Awake and Alert, No apparent distress Eyes - PERRL Cardiovascular - S1S2, RRR, No edema Respiratory - Normal lung expansion, Normal respiratory effort, No respiratory distress, CTA bilaterally Extremities - no calf tenderness bilaterally, no swelling Skin - Warm/Dry. Neurological - Alert & disoriented, groggy appearing [facility] Medical History (Updated 06/08/25 @ 16:44 by CONG Valdivia) Cirrhosis of liver with ascites Left hand pain Dementia with mood disturbance Hypercholesterolemia Hypothyroidism Screening breast examination Tobacco use disorder Hypertension Left thalamic infarction Surgical History History of colonoscopy (~12/21/14) Family History (Updated 04/16/25 @ 14:37 by Alcira Wyman MA) Mother No problems noted. Father No problems noted. Social History Housing: Assisted Living Facility Patient Tobacco Use Status: Former Tobacco user e-Cigarette/Vaping Use: Former Use service: No Current occupational status: retired Cognitive needs: No Hearing needs: Yes (bilateral hearing aids) Vision needs: Yes (rx glassses) Questionnaire Thrive Questionnaire Date Thrive assessed: 04/16/25 EAMON-7 AMB Questionnaire EAMON-7 Date EAMON - 7 assessed: 04/16/25 Source: Developed by Drs. Zbigniew Foster, Ashlyn Villela, Osvaldo Medellin and colleagues, with an educational leesa from [employer]. Physical exam (Primary Care) Vital Signs: Last Vital Signs Temp 98 F 06/08/25 13:53 Pulse 82 06/08/25 13:53 Resp 18 06/08/25 13:53 BP 103/58 L 06/08/25 13:53 Pulse Ox 98 06/08/25 13:53 Oxygen Delivery Method Room Air 06/08/25 13:53 Tobacco/Smoking Status: Tobacco use Status Tobacco use date assessed 04/16/25 06/08/25 13:49 Patient Tobacco Use Status Former Tobacco user 06/08/25 13:49 e-Cigarette/Vaping Use Former Use 06/08/25 13:49 Thrive Assessment: Date of Thrive Assessment Date Thrive assessed 04/16/25 06/08/25 13:49 Coding Level of Care Code Est Pt Level 5 (39382) Complex EM visit Add On G2211 Diagnoses Cirrhosis of liver with ascites K74.60; R18.8 Hypothyroidism E03.9 Hypertension I10 Hypercholesterolemia E78.00 Dementia with mood disturbance F03.93 Weakness R53.1 Abnormal peritoneal fluid R85.9 Time Spent (min) 50 Assessment & Plan Assessment & Plan (1) Cirrhosis of liver with ascites: Code(s): K74.60 - Unspecified cirrhosis of liver; R18.8 - Other ascites Category: Medical Plan: Following [facility] discharge where she had undergone paracentesis for ascites with normal echo, suspicion for cirrhosis. Referral to gastroenterology placed (2) Hypothyroidism: Code(s): E03.9 - Hypothyroidism, unspecified Category: Medical Plan: Continue levothyroxine 100 mcg daily (3) Hypertension: Code(s): I10 - Essential (primary) hypertension Category: Medical Plan: Controlled. Continue hydralazine, losartan, atenolol (4) Hypercholesterolemia: Code(s): E78.00 - Pure hypercholesterolemia, unspecified Category: Medical Plan: Continue atorvastatin (5) Dementia with mood disturbance: Code(s): F03.93 - Unspecified dementia, unspecified severity, with mood disturbance Category: Medical Plan: Has been exhibiting symptoms of anhedonia, anorexia, fatigue, weakness. Add mirtazapine 15 mg nightly. Can continue fluvoxamine. Follow-up in 1 month. VNA referral placed (6) Weakness: Code(s): R53.1 - Weakness Category: Medical Plan: As above (7) Abnormal peritoneal fluid: Code(s): R85.9 - Unspecified abnormal finding in specimens from digestive organs and abdominal cavity Category: Medical Plan: Discussed with [facility] pathology. Atypical cells/CDRX2 positive suggestive of possible malignancy. 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 Plan Follow-up in the office in 1 month Orders: Referrals Gastroenterology Referral K74.60 - Unspecified cirrhosis of liver, R18.8 - Other ascites [facility] Referral R53.1 - Weakness, R53.83 - Other fatigue, W19.XXXA - Unspecified fall, initial encounter Medications: New mirtazapine 15 mg PO BEDTIME 90 tabs 1RF
[2025-06-08 13:53] VITALS: BP 103/58; PULSE 82; RESP 18; TEMP 36.6; O2SAT 98
== END 2025-06-08 14:24 | disposition home or self-care (01) ==
LOC: HO.HMCHD 13:43
PROVIDERS: PCP Physician Assistant; Visit Provider Physician Assistant
DX: K74.60 Unspecified cirrhosis of liver (principal); R18.8 Other ascites; E03.9 Hypothyroidism, unspecified; I10 Essential (primary) hypertension; E78.00 Pure hypercholesterolemia, unspecified; F03.93 Unspecified dementia, unspecified severity, with mood disturbance; R53.1 Weakness; R85.9 Unspecified abnormal finding in specimens from digestive organs and abdominal cavity

== ENCOUNTER → 2025-06-08 13:43 | Outpatient (BNVA) | payer MEDICARE, MEDICAID, SELFPAY | PROVIDERS: PCP Physician Assistant; Visit Provider Physician Assistant | DX: K74.60 Unspecified cirrhosis of liver (principal); R18.8 Other ascites; E03.9 Hypothyroidism, unspecified; I10 Essential (primary) hypertension; E78.00 Pure hypercholesterolemia, unspecified; F03.93 Unspecified dementia, unspecified severity, with mood disturbance; R53.1 Weakness; R85.9 Unspecified abnormal finding in specimens from digestive organs and abdominal cavity; Z91.81 History of falling | CPT/HCPCS: 99212 ==